=== PATIENT | male | born 1960 ===

== ENCOUNTER 2017-09-20 17:52 | Inpatient (IN) | payer BC ==
[2017-09-20 17:52] VITALS: BMI 25.0
[2017-09-20 18:51] LABS: BASO % 0.4 % (0.0-2.0); EOS # 0.1 K/uL (0.0-0.7); EOS % 0.4 % (0.0-4.0); HEMATOCRIT 35.3 % (35.0-51.0); LYMPH # 1.6 K/uL (1.0-4.3); LYMPH % 12.1 % (20.0-40.0); MEAN CELL VOLUME 88.3 fL (80.0-94.0); MEAN CORPUSCULAR HEMOGLOBIN 29.7 pg (27.0-31.0); MEAN CORPUSCULAR HGB CONC 33.6 g/dL (33.0-37.0); MEAN PLATELET VOLUME 8.1 fL (7.2-11.7); MONO % 7.9 % (0.0-10.0); RED CELL DISTRIBUTION WIDTH 13.3 % (11.5-14.5); WHITE BLOOD COUNT 13.2 K/uL (4.8-10.8)
[2017-09-20 19:00] LABS: INR 1.2
[2017-09-20 19:22] LABS: ALKALINE PHOSPHATASE 189 U/L (38-126); ALT/SGPT 32 U/L (21-72); AST/SGOT 38 U/L (17-59); BILIRUBIN,TOTAL 0.7 mg/dL (0.2-1.3); BLOOD UREA NITROGEN 14 mg/dL (9-20); CALCIUM 8.7 mg/dl (8.6-10.4); CARBON DIOXIDE 32 mmol/L (22-30); CHLORIDE 97 mmol/L (98-107); GFR AFRICAN-AMERICAN > 60; GLUCOSE,RANDOM 110 mg/dL (75-110); POTASSIUM 3.8 mmol/L (3.6-5.2); SODIUM 137 mmol/L (132-148); TOTAL PROTEIN 7.2 g/dL (6.3-8.3)
[2017-09-20 19:38] LABS: FREE T4 1.49 ng/dL (0.78-2.19)
[2017-09-20] MEDS ORDERED: Lactated Ringer's 1,000 ML IVB STA (19:38)
[2017-09-20 19:59] LABS: RBC URINE 3 /hpf (0-3); URINE BACTERIA RARE (<OCC); URINE BILIRUBIN NEGATIVE (NEGATIVE); URINE BLOOD NEGATIVE (NEGATIVE); URINE COLOR Yellow (YELLOW); URINE GLUCOSE (UA) NORMAL (Normal); URINE HYALINE CAST 0-2 /lpf (0-2); URINE KETONE TRACE mg/dL (NEGATIVE); URINE LEUKOCYTE ESTERASE NEG Leu/uL (Negative); URINE PROTEIN NEGATIVE (NEGATIVE); URINE UROBILINOGEN NORMAL mg/dL (0.2-1.0); WBC URINE 2 /hpf (0-5)
[2017-09-20 20:37] LABS: THYROID STIMULATING HORMONE 2.09 mIU/L (0.46-4.68)
--- NOTE | 2017-09-20 20:37 | C.PDOC ---
Time Seen by Provider: 09/20/17 18:16 Chief Complaint (Nursing): Medical Clearance History Per: Patient, Family Onset/Duration Of Symptoms: Days (about 1-2 months), Gradual Current Symptoms Are (Timing): Worse Current Symptoms: Generalized weakness. Associated Symptoms Preceding Syncopal Episode: Other (Weight loss) Seizure Or Post-ictal Symptoms: None Possible Causative Factor(s): Decreased PO Intake Fall Associated With With Symptoms: No Severity: Moderate Additional History Per: Prior Records - Symptoms Of CVA Recent Head Trauma: No Past Medical History Reviewed: Historical Data, Nursing Documentation, Vital Signs Vital Signs: Last Vital Signs Temp 97.8 F 09/20/17 19:13 Pulse 116 H 09/20/17 19:43 Resp 24 09/20/17 19:43 BP 120/92 H 09/20/17 19:43 Pulse Ox 100 09/20/17 19:43 - Medical History PMH: Hypercholesterolemia (DENIES), Hypothyroidism Surgical History: No Surg Hx Family History: States: Unknown Family Hx - Social History Hx Tobacco Use: No Hx Alcohol Use: No Hx Substance Use: No - Immunization History Hx Tetanus Toxoid Vaccination: No Hx Influenza Vaccination: No Hx Pneumococcal Vaccination: No Review Of Systems Except As Marked, All Systems Reviewed And Found Negative. Constitutional: Positive for: Weakness, Malaise, Weight loss. Negative for: Fever Cardiovascular: Negative for: Chest Pain Respiratory: Positive for: SOB with Excertion. Negative for: Cough, Hemoptysis Gastrointestinal: Negative for: Vomiting, Abdominal Pain, Diarrhea Genitourinary: Negative for: Dysuria Musculoskeletal: Positive for: Back Pain (right upper). Negative for: Neck Pain , Leg Pain Skin: Negative for: Rash Neurological: Negative for: Weakness, Numbness, Seizures Physical Exam - Physical Exam Appears: Chronically Ill Skin: Normal Color, Warm, Dry, No Rash Head: Atraumatic, Normacephalic Eye(s): bilateral: Normal Inspection, PERRL, EOMI Oral Mucosa: Dry Neck: Normal ROM, Supple Cardiovascular: Rhythm Regular Respiratory: Decreased Breath Sounds (on right side), No Accessory Muscle Use Gastrointestinal/Abdominal: Soft, No Tenderness Back: No CVA Tenderness Extremity: Normal ROM, No Pedal Edema, No Calf Tenderness Neurological/Psych: Oriented x3, Normal Motor, Normal Sensation ED Course And Treatment - Laboratory Results Result Diagrams: 09/20/17 18:45 09/20/17 18:45 ECG: Interpreted By Me, Viewed By Me ECG Rhythm: Sinus Tachycardia, Nonspecific Changes Rate From EC O2 Sat by Pulse Oximetry: 100 Pulse Ox Interpretation: Normal - Radiology CXR: Interpreted by Me, Viewed By Me CXR Interpretation: Yes: Other (Large right pleural effusion) Progress - Interventions Interventions:: Observation, Intravenous fluid, Oxygen - Data Reviewed Data Reviewed: Lab, Diagnostic imaging, EKG, Old records - Continuity of Care Discussed patient case with:: Patient, Family-HIPPA compliant, ED Nurse, Covering for PMD - Patient Plan Patient Plan: Admission Disposition Discussed With : Jonathan Painting Comment: He accepted pt on hospitalist service. He will f/up CT scan results. Doctor Will See Patient In The: Hospital Counseled Patient/Family Regarding: Studies Performed, Diagnosis - Disposition Disposition: HOSPITALIZED Disposition Time: 20:40 Condition: FAIR Instructions: Weakness (ED) - Clinical Impression Clinical Impression: Pleural effusion on right, Generalized weakness
--- NOTE | 2017-09-20 22:10 | CT ---
EXAM: CT Chest Without Intravenous Contrast CLINICAL HISTORY: 57 years old, male; Abnormal findings; Abnormal radiologic exam of lung or chest; Additional info: Large right pleural effusion on cxr TECHNIQUE: Axial computed tomography images of the chest without intravenous contrast. All CT scans at this facility use one or more dose reduction techniques, viz.: automated exposure control; ma/kV adjustment per patient size (including targeted exams where dose is matched to indication; i.e. head); or iterative reconstruction technique. Coronal and sagittal reformatted images were created and reviewed. COMPARISON: No relevant prior studies available. FINDINGS: Lungs/pleura: Severe right pleural effusion with associated atelectasis/lung collapse. Evidence of underlying large heterogeneous mass involving the medial right lung field and mediastinum, measured at approximately 10 x 10 x 15 cm. Heart: Significant mediastinal shift to the left. Mild pericardial effusion. No cardiomegaly. Bones: Multiple lytic foci in the vertebral bodies concerning for metastatic disease. Vasculature: Atherosclerosis. No thoracic aortic aneurysm. Nonobstructing bilateral intrarenal calculi. IMPRESSION: Study limited without contrast. Severe right pleural effusion with associated atelectasis/lung collapse. Evidence of underlying large heterogeneous mass involving the medial right lung field and mediastinum, measured at approximately 10 x 10 x 15 cm. Significant mediastinal shift to the left. Mild pericardial effusion. Multiple lytic foci in the vertebral bodies concerning for metastatic disease.
--- NOTE | 2017-09-20 22:31 | CP.PCM.HP ---
<LatonyateraAlyce wilsonGabrielle - Last Filed: 09/20/17 22:52> History of Present Illness - History of Present Illness History of Present Illness: CC: generalized weakness, sob, weight loss HPI: Patient is a 57 year old male with a past medical history of hypothyroidism , who presents to the ED with generalized weakness, shortness of breath, right upper extremity pain/numbness, and weight loss. Patient's , Rea, is at bedside contributing to the history. Patient reports having generalized weakness and right upper extremity pain/numbness for approximately 2 months. Patient saw an orthopedist who took an xray which did not show any acute issues. Patient states the orthopedist wanted the patient to get an MRI, but the patient did not get one yet. Patient and reports the patient has lost about 20lbs in a month and a half, and has had decreased appetite, "seeing food makes me nauseas". The patient states he has been feeling increasingly short of breath for the last week, which prompted him to come into the ED. The patient states the shortness of breath increased with exertion and occasionally with laying flat. Patient only uses one pillow. Patient currently denies having chest pain, abdominal pain, nausea, fevers, leg pain/swelling and headaches. PMD: Dr. Jaramillo PMHx: Hypothyroidism SurgHx: colonscopy (11/30; resected polyps; as per and patient- colonscopy was normal) FamHx: Father- prostate cancer, HTN; Mother- HTN, DM Allergies: NKDA Medications: Levothyroxine 25mcg PO daily Present on Admission - Present on Admission Any Indicators Present on Admission: No Review of Systems - Constitutional Constitutional: Fatigue, Lethargy, Weight Loss (<20lbs), Weakness. absent: Chills, Fever, Headache, Increased Appetite - EENT Eyes: absent: Change in Vision Ears: absent: Dizziness - Cardiovascular Cardiovascular: Chest Pain (intermittent right chest pain when laying on right side), Dyspnea, Dyspnea on Exertion, Rapid Heart Rate. absent: Lightheadedness - Respiratory Respiratory: Dyspnea, Dyspnea on Exertion. absent: Cough, Hemoptysis, Pain on Inspiration, Excessive Mucous Production - Gastrointestinal Gastrointestinal: Nausea. absent: Abdominal Pain, Constipation, Diarrhea, Hematemesis, Melena, Vomiting - Genitourinary Genitourinary: absent: Dysuria, Urinary Frequency (decreased due to less intake) - Musculoskeletal Musculoskeletal: Back Pain (right shoulder, related to right arm pain), Muscle Weakness (right UE), Numbness (right shoulder) - Integumentary Integumentary: absent: Lesions, Rash - Neurological Neurological: Numbness (right shoulder), Weakness. absent: Abnormal Gait, Dizziness, Headaches - Endocrine Endocrine: Fatigue - Hematologic/Lymphatic Hematologic: absent: Easy Bruising Past Patient History - Infectious Disease Hx of Infectious Diseases: None - Past Medical History & Family History Past Medical History?: Yes - Past Social History Smoking Status: Never Smoked - CARDIAC Hx Hypercholesterolemia: Yes (DENIES) - PULMONARY Hx Respiratory Disorders: No - NEUROLOGICAL Hx Neurological Disorder: No - HEENT Hx HEENT Problems: No - RENAL Hx Chronic Kidney Disease: No - ENDOCRINE/METABOLIC Hx Hypothyroidism: Yes - HEMATOLOGICAL/ONCOLOGICAL Hx Blood Disorders: No - INTEGUMENTARY Hx Dermatological Problems: No - MUSCULOSKELETAL/RHEUMATOLOGICAL Hx Musculoskeletal Disorders: No Hx Falls: No - GASTROINTESTINAL Hx Gastrointestinal Disorders: No - GENITOURINARY/GYNECOLOGICAL Hx Genitourinary Disorders: No - PSYCHIATRIC Hx Substance Use: No - SURGICAL HISTORY Hx Surgeries: No - ANESTHESIA Hx Anesthesia: Yes Hx Anesthesia Reactions: No Meds Allergies/Adverse Reactions: Allergies Allergy/AdvReac Type Severity Reaction Status Date / Time No Known Allergies Allergy Verified 11/15/16 07:42 Physical Exam - Constitutional Appears: No Acute Distress - Head Exam Head Exam: ATRAUMATIC, NORMAL INSPECTION - Eye Exam Eye Exam: EOMI, Normal appearance, PERRL. absent: Scleral icterus - ENT Exam ENT Exam: Mucous Membranes Moist - Respiratory Exam Respiratory Exam: Decreased Breath Sounds (R>L), NORMAL BREATHING PATTERN. absent: Clear to Auscultation Bilateral, Rhonchi, Respiratory Distress - Cardiovascular Exam Cardiovascular Exam: Tachycardia, REGULAR RHYTHM, +S1, +S2 - GI/Abdominal Exam GI & Abdominal Exam: Normal Bowel Sounds, Soft. absent: Distended, Firm, Guarding, Tenderness - Extremities Exam Extremities exam: Positive for: normal inspection, pedal pulses present. Negative for: pedal edema, tenderness - Back Exam Back exam: NORMAL INSPECTION - Neurological Exam Neurological exam: Alert, Oriented x3 - Psychiatric Exam Psychiatric exam: Normal Affect, Normal Mood - Skin Skin Exam: Dry, Intact, Normal Color, Warm Results - Vital Signs Recent Vital Signs: Last Vital Signs Temp 98.5 F 09/20/17 22:00 Pulse 109 H 09/20/17 22:00 Resp 20 09/20/17 22:00 BP 127/89 09/20/17 22:00 Pulse Ox 100 09/20/17 22:00 - Labs Result Diagrams: 09/20/17 18:45 09/20/17 18:45 Labs: Laboratory Results - last 24 hr 09/20/17 09/20/17 09/20/17 18:18 18:45 18:45 WBC 13.2 H RBC 4.00 L Hgb 11.9 L Hct 35.3 MCV 88.3 MCH 29.7 MCHC 33.6 RDW 13.3 Plt Count 655 H MPV 8.1 Neut % (Auto) 79.2 H Lymph % (Auto) 12.1 L [place] % (Auto) 7.9 Eos % (Auto) 0.4 Baso % (Auto) 0.4 Neut # 10.4 H Lymph # 1.6 [place] # 1.0 H Eos # 0.1 Baso # 0.0 PT 14.0 H INR 1.2 APTT 33 Sodium Potassium Chloride Carbon Dioxide Anion Gap BUN Creatinine Est GFR ( Amer) Est GFR (Non-Af Amer) POC Glucose (mg/dL) 106 Random Glucose Calcium Magnesium Total Bilirubin AST ALT Alkaline Phosphatase Troponin I NT-Pro-B Natriuret Pep Total Protein Albumin Globulin Albumin/Globulin Ratio Free T4 TSH 3rd Generation Urine Color Urine Clarity Urine pH Ur Specific [place] Urine Protein Urine Glucose (UA) Urine Ketones Urine Blood Urine Nitrate Urine Bilirubin Urine Urobilinogen Ur Leukocyte Esterase Urine WBC (Auto) Urine RBC (Auto) Urine Bacteria Hyaline Casts 09/20/17 09/20/17 09/20/17 18:45 18:45 19:41 WBC RBC Hgb Hct MCV MCH MCHC RDW Plt Count MPV Neut % (Auto) Lymph % (Auto) [place] % (Auto) Eos % (Auto) Baso % (Auto) Neut # Lymph # [place] # Eos # Baso # PT INR APTT Sodium 137 Potassium 3.8 Chloride 97 L Carbon Dioxide 32 H Anion Gap 12 BUN 14 Creatinine 0.8 Est GFR ( Amer) > 60 Est GFR (Non-Af Amer) > 60 POC Glucose (mg/dL) Random Glucose 110 Calcium 8.7 Magnesium 2.0 Total Bilirubin 0.7 AST 38 ALT 32 Alkaline Phosphatase 189 H Troponin I < 0.0120 NT-Pro-B Natriuret Pep 79.9 Total Protein 7.2 Albumin 3.6 Globulin 3.6 Albumin/Globulin Ratio 1.0 Free T4 1.49 TSH 3rd Generation 2.09 Urine Color Yellow Urine Clarity Clear Urine pH 6.0 Ur Specific [place] 1.015 Urine Protein Negative Urine Glucose (UA) Normal Urine Ketones Trace Urine Blood Negative Urine Nitrate Negative Urine Bilirubin Negative Urine Urobilinogen Normal Ur Leukocyte Esterase Neg Urine WBC (Auto) 2 Urine RBC (Auto) 3 Urine Bacteria Rare Hyaline Casts 0-2 Assessment & Plan (1) Pleural effusion on right Assessment and Plan: * Chest Xray (09/20): large right sided pleural effusion; pending official read * Chest CT (09/20): severe right pleural effusion with associated ateletasis/ lung collapse; evidence of underlying large heterogenous mass involving medial right lung field and mediastinum ([id number]); significant mediastinal shift to the left; mild pericardial effusion; multiple lytic foci in vertebral bodies concerning for metastatic disease. * O2 prn via nasal cannula * IR consulted for pleural fluid analysis, help appreciated. Status: Acute (2) Lung mass Assessment and Plan: * Chest CT (09/20): severe right pleural effusion with associated ateletasis/ lung collapse; evidence of underlying large heterogenous mass involving medial right lung field and mediastinum ([id number]); significant mediastinal shift to the left; mild pericardial effusion; multiple lytic foci in vertebral bodies concerning for metastatic disease. * Heme/Onc consulted, Dr. Sultana, help appreciated. Status: Acute (3) Right upper limb pain Assessment and Plan: Patient complains of right upper extremity and right back pain and numbness * Likely secondary to pleural effusion and right lung mass * Right Upper Extremity Doppler: f/u results Status: Acute (4) Hypothyroidism Assessment and Plan: Continue home medication: Levothyroxine 25mcg PO daily. * TSH: 2.09 * T4: /49 Status: Acute (5) Prophylactic measure Assessment and Plan: Heparin 5,000 SC Q8h Pepcid 20mg PO BID Regular Diet O2 via nasal cannula prn Status: Acute <Jonathan Painting - Last Filed: 09/21/17 06:22> Results - Vital Signs Recent Vital Signs: Last Vital Signs Temp 99.2 F 09/21/17 00:00 Pulse 106 H 09/21/17 00:00 Resp 20 09/21/17 00:00 BP 113/82 09/21/17 00:00 Pulse Ox 100 09/21/17 00:00 - Labs Result Diagrams: 09/20/17 18:45 09/20/17 18:45 Labs: Laboratory Results - last 24 hr 09/20/17 09/20/17 09/20/17 18:18 18:45 18:45 WBC 13.2 H RBC 4.00 L Hgb 11.9 L Hct 35.3 MCV 88.3 MCH 29.7 MCHC 33.6 RDW 13.3 Plt Count 655 H MPV 8.1 Neut % (Auto) 79.2 H Lymph % (Auto) 12.1 L [place] % (Auto) 7.9 Eos % (Auto) 0.4 Baso % (Auto) 0.4 Neut # 10.4 H Lymph # 1.6 [place] # 1.0 H Eos # 0.1 Baso # 0.0 PT 14.0 H INR 1.2 APTT 33 Sodium Potassium Chloride Carbon Dioxide Anion Gap BUN Creatinine Est GFR ( Amer) Est GFR (Non-Af Amer) POC Glucose (mg/dL) 106 Random Glucose Calcium Magnesium Total Bilirubin AST ALT Alkaline Phosphatase Troponin I NT-Pro-B Natriuret Pep Total Protein Albumin Globulin Albumin/Globulin Ratio Free T4 TSH 3rd Generation Urine Color Urine Clarity Urine pH Ur Specific [place] Urine Protein Urine Glucose (UA) Urine Ketones Urine Blood Urine Nitrate Urine Bilirubin Urine Urobilinogen Ur Leukocyte Esterase Urine WBC (Auto) Urine RBC (Auto) Urine Bacteria Hyaline Casts 09/20/17 09/20/17 09/20/17 18:45 18:45 19:41 WBC RBC Hgb Hct MCV MCH MCHC RDW Plt Count MPV Neut % (Auto) Lymph % (Auto) [place] % (Auto) Eos % (Auto) Baso % (Auto) Neut # Lymph # [place] # Eos # Baso # PT INR APTT Sodium 137 Potassium 3.8 Chloride 97 L Carbon Dioxide 32 H Anion Gap 12 BUN 14 Creatinine 0.8 Est GFR ( Amer) > 60 Est GFR (Non-Af Amer) > 60 POC Glucose (mg/dL) Random Glucose 110 Calcium 8.7 Magnesium 2.0 Total Bilirubin 0.7 AST 38 ALT 32 Alkaline Phosphatase 189 H Troponin I < 0.0120 NT-Pro-B Natriuret Pep 79.9 Total Protein 7.2 Albumin 3.6 Globulin 3.6 Albumin/Globulin Ratio 1.0 Free T4 1.49 TSH 3rd Generation 2.09 Urine Color Yellow Urine Clarity Clear Urine pH 6.0 Ur Specific [place] 1.015 Urine Protein Negative Urine Glucose (UA) Normal Urine Ketones Trace Urine Blood Negative Urine Nitrate Negative Urine Bilirubin Negative Urine Urobilinogen Normal Ur Leukocyte Esterase Neg Urine WBC (Auto) 2 Urine RBC (Auto) 3 Urine Bacteria Rare Hyaline Casts 0-2 Assessment & Plan - Date & Time Date: 09/21/17 (I have seen and examined the patient. I agree with the findings and plan as documented by Dr. Baez. Patient with large pleural effusion and lung mass as noted on CT chest. Consult to pulm and heme/onc. Saturating well on NC. Also with history of hypothyroidism. Continue home med. Monitor for acute changes.) Time: 06:20 Attending/Attestation - Attestation I have personally seen and examined this patient.: Yes I have fully participated in the care of the patient.: Yes I have reviewed all pertinent clinical information: Yes
[2017-09-21] MEDS: Levothyroxine 25 MCG TAB PO SCH (05:37)
[2017-09-21 06:55] LABS: BASO # 0.1 K/uL (0.0-0.2); BASO % 0.6 % (0.0-2.0); EOS # 0.2 K/uL (0.0-0.7); EOS % 1.5 % (0.0-4.0); HEMATOCRIT 30.7 % (35.0-51.0); LYMPH # 1.6 K/uL (1.0-4.3); LYMPH % 12.7 % (20.0-40.0); MEAN CELL VOLUME 88.6 fL (80.0-94.0); MEAN CORPUSCULAR HEMOGLOBIN 30.3 pg (27.0-31.0); MEAN CORPUSCULAR HGB CONC 34.2 g/dL (33.0-37.0); MEAN PLATELET VOLUME 8.6 fL (7.2-11.7); MONO # 1.1 K/uL (0.0-0.8); MONO % 9.2 % (0.0-10.0); RED CELL DISTRIBUTION WIDTH 13.2 % (11.5-14.5); WHITE BLOOD COUNT 12.5 K/uL (4.8-10.8)
[2017-09-21 07:09] LABS: ALB/GLOB RATIO 0.7 (1.0-2.1); ALKALINE PHOSPHATASE 155 U/L (38-126); ALT/SGPT 40 U/L (21-72); AST/SGOT 39 U/L (17-59); BILIRUBIN,TOTAL 0.5 mg/dL (0.2-1.3); BLOOD UREA NITROGEN 12 mg/dL (9-20); CARBON DIOXIDE 33 mmol/L (22-30); CHLORIDE 100 mmol/L (98-107); GFR AFRICAN-AMERICAN > 60; GLUCOSE,RANDOM 135 mg/dL (75-110); POTASSIUM 3.7 mmol/L (3.6-5.2); SODIUM 136 mmol/L (132-148); TOTAL PROTEIN 6.9 g/dL (6.3-8.3)
--- NOTE | 2017-09-21 07:47 | RAD ---
PROCEDURE: CHEST RADIOGRAPH, 1 VIEW HISTORY: Lung sounds demininshed on right COMPARISON: Comparison is made to 10/29/2016 FINDINGS: LUNGS: Interval appearance of large homogeneous opacity at the right chest associated with collapse of the right middle lobe and right lower lobe as well as partial collapse of the right upper lobe likely represent large pleural effusion. PLEURA: Large right pleural effusion associated with partial right lung collapse and right to left mediastinal structures shift. CARDIOVASCULAR: Normal. OSSEOUS STRUCTURES: No significant abnormalities. VISUALIZED UPPER ABDOMEN: Normal. OTHER FINDINGS: None. IMPRESSION: Suspicious for large right sided pleural effusion associated with partial collapse of the right lung and mediastinal shift to the left. If indicated further assessment by CT of the chest is suggested.
--- NOTE | 2017-09-21 10:43 | CP.PCM.CON ---
History of Present Illness - History of Present Illness History of Present Illness: reason for consultatation: large pleural effusion 57-year-old male presented to emergency room yesterday with generalized weaknes and shortness of breath on exertion. Also complaining of right upper extremity pain and numbness. Patient states that he has lost 20 pounds in one month. CAT scan of the ches consistent with large right pleural effusion and lung mass. PMHx: Hypothyroidism SurgHx: colonscopy (11/30; resected polyps; as per and patient- colonscopy was normal) FamHx: Father- prostate cancer, HTN; Mother- HTN, DM Allergies: NKDA Medications: Levothyroxine 25mcg PO daily Review of Systems - Review of Systems All systems: reviewed and no additional remarkable complaints except ( generalized weakness and shortness of breath) Past Patient History - Infectious Disease Hx of Infectious Diseases: None - Past Medical History & Family History Past Medical History?: Yes - Past Social History Smoking Status: Never Smoked - CARDIAC Hx Hypercholesterolemia: Yes (DENIES) - PULMONARY Hx Respiratory Disorders: No - NEUROLOGICAL Hx Neurological Disorder: No - HEENT Hx HEENT Problems: No - RENAL Hx Chronic Kidney Disease: No - ENDOCRINE/METABOLIC Hx Hypothyroidism: Yes - HEMATOLOGICAL/ONCOLOGICAL Hx Blood Disorders: No - INTEGUMENTARY Hx Dermatological Problems: No - MUSCULOSKELETAL/RHEUMATOLOGICAL Hx Musculoskeletal Disorders: No Hx Falls: No - GASTROINTESTINAL Hx Gastrointestinal Disorders: No - GENITOURINARY/GYNECOLOGICAL Hx Genitourinary Disorders: No - PSYCHIATRIC Hx Substance Use: No - SURGICAL HISTORY Hx Surgeries: No - ANESTHESIA Hx Anesthesia: Yes Hx Anesthesia Reactions: No Meds Allergies/Adverse Reactions: Allergies Allergy/AdvReac Type Severity Reaction Status Date / Time No Known Allergies Allergy Verified 11/15/16 07:42 - Medications Medications: Current Medications Famotidine (Pepcid) 20 mg PO BID [facility] Heparin Sodium (Porcine) (Heparin) 5,000 units SC Q8 [facility] Last Admin: 09/21/17 05:38 Dose: 5,000 units Azithromycin 500 mg/ Sodium (Chloride) 250 mls @ 250 mls/hr IVPB DAILY [facility] Ceftriaxone Sodium 1 gm/ (Sodium Chloride) 100 mls @ 100 mls/hr IVPB DAILY [facility] Levothyroxine Sodium (Synthroid) 25 mcg PO DAILY@0630 [facility] Last Admin: 09/21/17 05:37 Dose: 25 mcg Ondansetron HCl (Zofran Inj) 4 mg IVP Q6 PRN PRN Reason: Nausea/Vomiting Pneumococcal Polyvalent Vaccine (Pneumovax 23 Vaccine) 0.5 ml IM .ONCE ONE Stop: 09/23/17 10:01 Physical Exam - Head Exam Head Exam: ATRAUMATIC, NORMOCEPHALIC Results - Vital Signs Recent Vital Signs: Last Vital Signs Temp 98.5 F 09/21/17 08:00 Pulse 108 H 09/21/17 08:00 Resp 18 09/21/17 08:00 BP 119/86 09/21/17 08:00 Pulse Ox 99 09/21/17 08:00 - Labs Result Diagrams: 09/21/17 06:44 09/21/17 06:44 Labs: Laboratory Results - last 24 hr 09/20/17 09/20/17 09/20/17 18:18 18:45 18:45 WBC 13.2 H RBC 4.00 L Hgb 11.9 L Hct 35.3 MCV 88.3 MCH 29.7 MCHC 33.6 RDW 13.3 Plt Count 655 H MPV 8.1 Neut % (Auto) 79.2 H Lymph % (Auto) 12.1 L [place] % (Auto) 7.9 Eos % (Auto) 0.4 Baso % (Auto) 0.4 Neut # 10.4 H Lymph # 1.6 [place] # 1.0 H Eos # 0.1 Baso # 0.0 PT 14.0 H INR 1.2 APTT 33 Sodium Potassium Chloride Carbon Dioxide Anion Gap BUN Creatinine Est GFR ( Amer) Est GFR (Non-Af Amer) POC Glucose (mg/dL) 106 Random Glucose Calcium Magnesium Total Bilirubin AST ALT Alkaline Phosphatase Troponin I NT-Pro-B Natriuret Pep Total Protein Albumin Globulin Albumin/Globulin Ratio Free T4 TSH 3rd Generation Urine Color Urine Clarity Urine pH Ur Specific [place] Urine Protein Urine Glucose (UA) Urine Ketones Urine Blood Urine Nitrate Urine Bilirubin Urine Urobilinogen Ur Leukocyte Esterase Urine WBC (Auto) Urine RBC (Auto) Urine Bacteria Hyaline Casts 09/20/17 09/20/17 09/20/17 18:45 18:45 19:41 WBC RBC Hgb Hct MCV MCH MCHC RDW Plt Count MPV Neut % (Auto) Lymph % (Auto) [place] % (Auto) Eos % (Auto) Baso % (Auto) Neut # Lymph # [place] # Eos # Baso # PT INR APTT Sodium 137 Potassium 3.8 Chloride 97 L Carbon Dioxide 32 H Anion Gap 12 BUN 14 Creatinine 0.8 Est GFR ( Amer) > 60 Est GFR (Non-Af Amer) > 60 POC Glucose (mg/dL) Random Glucose 110 Calcium 8.7 Magnesium 2.0 Total Bilirubin 0.7 AST 38 ALT 32 Alkaline Phosphatase 189 H Troponin I < 0.0120 NT-Pro-B Natriuret Pep 79.9 Total Protein 7.2 Albumin 3.6 Globulin 3.6 Albumin/Globulin Ratio 1.0 Free T4 1.49 TSH 3rd Generation 2.09 Urine Color Yellow Urine Clarity Clear Urine pH 6.0 Ur Specific [place] 1.015 Urine Protein Negative Urine Glucose (UA) Normal Urine Ketones Trace Urine Blood Negative Urine Nitrate Negative Urine Bilirubin Negative Urine Urobilinogen Normal Ur Leukocyte Esterase Neg Urine WBC (Auto) 2 Urine RBC (Auto) 3 Urine Bacteria Rare Hyaline Casts 0-2 09/21/17 09/21/17 06:44 06:44 WBC 12.5 H RBC 3.46 L Hgb 10.5 L Hct 30.7 L MCV 88.6 MCH 30.3 MCHC 34.2 RDW 13.2 Plt Count 561 H MPV 8.6 Neut % (Auto) 76.0 H Lymph % (Auto) 12.7 L [place] % (Auto) 9.2 Eos % (Auto) 1.5 Baso % (Auto) 0.6 Neut # 9.5 H Lymph # 1.6 [place] # 1.1 H Eos # 0.2 Baso # 0.1 PT INR APTT Sodium 136 Potassium 3.7 Chloride 100 Carbon Dioxide 33 H Anion Gap 7 L BUN 12 Creatinine 0.7 L Est GFR ( Amer) > 60 Est GFR (Non-Af Amer) > 60 POC Glucose (mg/dL) Random Glucose 135 H Calcium 8.0 L Magnesium Total Bilirubin 0.5 AST 39 ALT 40 Alkaline Phosphatase 155 H Troponin I NT-Pro-B Natriuret Pep Total Protein 6.9 Albumin 2.9 L Globulin 4.1 H Albumin/Globulin Ratio 0.7 L Free T4 TSH 3rd Generation Urine Color Urine Clarity Urine pH Ur Specific [place] Urine Protein Urine Glucose (UA) Urine Ketones Urine Blood Urine Nitrate Urine Bilirubin Urine Urobilinogen Ur Leukocyte Esterase Urine WBC (Auto) Urine RBC (Auto) Urine Bacteria Hyaline Casts Assessment & Plan (1) Lung mass Status: Acute Comment: large right pleural effusion with lung mass rule out malignancy. Patient reluctant to have thoracentesis today as he denies shortness of breath at rest. (2) Pleural effusion on right Status: Acute
[2017-09-21] MEDS: Azithromycin 500 MG in Sodium Chloride 0.9% 250 ML IVPB SCH (11:06)
--- NOTE | 2017-09-21 13:54 | CP.PCM.PN ---
Subjective - Date & Time of Evaluation Date of Evaluation: 09/21/17 Time of Evaluation: 08:50 - Subjective Subjective: PGY3 Medicine Note - Dr. Elmore's service: Patient seen and examined at bedside this AM. Patient reports difficulty breathing with walking. Patient reports feeling weak for the past few days. Patient reports a few weeks of right arm intermittent numbness and tingling. Patient denies having a recent chest X-ray or recent lung problems. Patient denies fever, chills, chest pain, cough. Objective - Vital Signs/Intake and Output Vital Signs (last 24 hours): Temp Pulse Resp BP Pulse Ox 98.5 F 108 H 18 119/86 99 09/21/17 08:00 09/21/17 08:00 09/21/17 08:00 09/21/17 08:00 09/21/17 08:00 Intake and Output: 09/21/17 09/21/17 06:59 18:59 Intake Total 220 Balance 220 - Medications Medications: Current Medications Famotidine (Pepcid) 20 mg PO BID [facility] Last Admin: 09/21/17 10:58 Dose: 20 mg Heparin Sodium (Porcine) (Heparin) 5,000 units SC Q8 [facility] Last Admin: 09/21/17 13:48 Dose: 5,000 units Azithromycin 500 mg/ Sodium (Chloride) 250 mls @ 250 mls/hr IVPB DAILY [facility] Last Admin: 09/21/17 11:06 Dose: 250 mls/hr Ceftriaxone Sodium 1 gm/ (Sodium Chloride) 100 mls @ 100 mls/hr IVPB DAILY [facility] Last Admin: 09/21/17 10:58 Dose: 100 mls/hr Levothyroxine Sodium (Synthroid) 25 mcg PO DAILY@0630 [facility] Last Admin: 09/21/17 05:37 Dose: 25 mcg Ondansetron HCl (Zofran Inj) 4 mg IVP Q6 PRN PRN Reason: Nausea/Vomiting Pneumococcal Polyvalent Vaccine (Pneumovax 23 Vaccine) 0.5 ml IM .ONCE ONE Stop: 09/23/17 10:01 - Labs Labs: 09/21/17 06:44 09/21/17 06:44 PT 14.0 SECONDS (9.7-12.2) H 09/20/17 18:45 INR 1.2 09/20/17 18:45 APTT 33 SECONDS (21-34) 09/20/17 18:45 - Constitutional Appears: Non-toxic, No Acute Distress - Head Exam Head Exam: NORMAL INSPECTION - Eye Exam Eye Exam: EOMI - ENT Exam ENT Exam: Mucous Membranes Moist - Respiratory Exam Respiratory Exam: Decreased Breath Sounds (left sided), Rales (right sided). absent: Accessory Muscle Use, Respiratory Distress, Stridor - Cardiovascular Exam Cardiovascular Exam: REGULAR RHYTHM, +S1, +S2. absent: Gallop, Rubs, Murmur - GI/Abdominal Exam GI & Abdominal Exam: Soft, Normal Bowel Sounds. absent: Tenderness - Extremities Exam Extremities Exam: absent: Pedal Edema - Neurological Exam Neurological Exam: Alert, Awake, Oriented x3 Neuro motor strength exam: Left Upper Extremity: 5, Right Upper Extremity: 5 - Psychiatric Exam Psychiatric exam: Normal Affect, Normal Mood - Skin Skin Exam: Normal Color, Warm Assessment and Plan - Assessment and Plan (Free Text) Assessment: Pleural effusion on right Assessment and Plan: * Chest Xray (09/20): large right sided pleural effusion; pending official read * Chest CT (09/20): severe right pleural effusion with associated ateletasis/ lung collapse; evidence of underlying large heterogenous mass involving medial right lung field and mediastinum ([id number]); significant mediastinal shift to the left; mild pericardial effusion; multiple lytic foci in vertebral bodies concerning for metastatic disease. * O2 prn via nasal cannula * IR consulted for pleural fluid analysis, help appreciated. * Pulm consulted - Dr. Caicedo - help appreciated * Dr. Caicedo wanted to go thoracentesis today. Patient was nervous and wanted his to be there when it is done. Patient will have procedure tomorrow * Thoracic surgery consulted - Dr. Alaniz - f/u recs in case patient needs chest tube Status: Acute Lung mass Assessment and Plan: * Chest CT (09/20): severe right pleural effusion with associated ateletasis/ lung collapse; evidence of underlying large heterogenous mass involving medial right lung field and mediastinum ([id number]); significant mediastinal shift to the left; mild pericardial effusion; multiple lytic foci in vertebral bodies concerning for metastatic disease. * Heme/Onc consulted, Dr. Sultana, help appreciated. * Pulm consulted - Dr. Caicedo - help appreciated Status: Acute Right upper limb pain Assessment and Plan: Patient complains of right upper extremity and right back pain and numbness * Likely secondary to pleural effusion and right lung mass * Right Upper Extremity Doppler: f/u results * Possibly secondary to nerve infringement, will get MRI once pleural effusion is resolved Status: Acute Hypothyroidism Assessment and Plan: Continue home medication: Levothyroxine 25mcg PO daily. * TSH: 2.09 * T4: Status: Acute Prophylactic measure Assessment and Plan: Heparin 5,000 SC Q8h Pepcid 20mg PO BID Regular Diet O2 via nasal cannula prn Status: Acute
--- NOTE | 2017-09-21 14:12 | CP.PCM.CON ---
History of Present Illness - History of Present Illness History of Present Illness: Mr. Draper is a 57-year-old man with a past medical history of hypothyroidism, who presented to the ED for a 2 month history of progressive weakness, SOB, and right arm pain/numbness. He has had a 20 lb weight loss, unintentional over the last 6 weeks and states that he has no appetite. An X-ray of the chest showed pleural effusion, and a CT of the chest was concerning for the presence of a right lung mass with lytic lesions in the vertebral bodies consistent with metastatic disease. The patient complained of having burning type of pain in his cervical and thoracic region and right shoulder, arm pain and numbness. There has been some weakness associated with the pain as well over the last several weeks. Review of Systems - Review of Systems All systems: reviewed and no additional remarkable complaints except Past Patient History - Infectious Disease Hx of Infectious Diseases: None - Past Medical History & Family History Past Medical History?: Yes - Past Social History Smoking Status: Never Smoked - CARDIAC Hx Hypercholesterolemia: Yes (DENIES) - PULMONARY Hx Respiratory Disorders: No - NEUROLOGICAL Hx Neurological Disorder: No - HEENT Hx HEENT Problems: No - RENAL Hx Chronic Kidney Disease: No - ENDOCRINE/METABOLIC Hx Hypothyroidism: Yes - HEMATOLOGICAL/ONCOLOGICAL Hx Blood Disorders: No - INTEGUMENTARY Hx Dermatological Problems: No - MUSCULOSKELETAL/RHEUMATOLOGICAL Hx Musculoskeletal Disorders: No Hx Falls: No - GASTROINTESTINAL Hx Gastrointestinal Disorders: No - GENITOURINARY/GYNECOLOGICAL Hx Genitourinary Disorders: No - PSYCHIATRIC Hx Substance Use: No - SURGICAL HISTORY Hx Surgeries: No - ANESTHESIA Hx Anesthesia: Yes Hx Anesthesia Reactions: No Meds Allergies/Adverse Reactions: Allergies Allergy/AdvReac Type Severity Reaction Status Date / Time No Known Allergies Allergy Verified 11/15/16 07:42 - Medications Medications: Current Medications Famotidine (Pepcid) 20 mg PO BID [facility] Last Admin: 09/21/17 10:58 Dose: 20 mg Heparin Sodium (Porcine) (Heparin) 5,000 units SC Q8 [facility] Last Admin: 09/21/17 13:48 Dose: 5,000 units Azithromycin 500 mg/ Sodium (Chloride) 250 mls @ 250 mls/hr IVPB DAILY [facility] Last Admin: 09/21/17 11:06 Dose: 250 mls/hr Ceftriaxone Sodium 1 gm/ (Sodium Chloride) 100 mls @ 100 mls/hr IVPB DAILY [facility] Last Admin: 09/21/17 10:58 Dose: 100 mls/hr Levothyroxine Sodium (Synthroid) 25 mcg PO DAILY@0630 [facility] Last Admin: 09/21/17 05:37 Dose: 25 mcg Ondansetron HCl (Zofran Inj) 4 mg IVP Q6 PRN PRN Reason: Nausea/Vomiting Pneumococcal Polyvalent Vaccine (Pneumovax 23 Vaccine) 0.5 ml IM .ONCE ONE Stop: 09/23/17 10:01 Physical Exam - Constitutional Appears: Cachectic, Chronically Ill - Head Exam Head Exam: ATRAUMATIC, NORMAL INSPECTION, NORMOCEPHALIC - Eye Exam Eye Exam: EOMI, Normal appearance, PERRL - ENT Exam ENT Exam: Mucous Membranes Moist, Normal Exam - Neck Exam Neck exam: Positive for: Normal Inspection - Respiratory Exam Respiratory Exam: Rales, Rhonchi - Cardiovascular Exam Cardiovascular Exam: REGULAR RHYTHM - GI/Abdominal Exam GI & Abdominal Exam: Normal Bowel Sounds, Soft. absent: Tenderness - Rectal Exam Rectal Exam: Deferred - Extremities Exam Extremities exam: Positive for: normal inspection - Back Exam Back exam: NORMAL INSPECTION - Neurological Exam Neurological exam: Alert, CN II-XII Intact, Normal Gait, Oriented x3 Additional comments: Reflexes were diminished slightly on the C5/C6 region on the right side. Sensation was diminished and associated with an electric/burning pain over the C6 dermatome along with the ventral axial line of the upper limb with extension into C8-T1. Results - Vital Signs Recent Vital Signs: Last Vital Signs Temp 98.5 F 09/21/17 08:00 Pulse 108 H 09/21/17 08:00 Resp 18 09/21/17 08:00 BP 119/86 09/21/17 08:00 Pulse Ox 99 09/21/17 08:00 - Labs Result Diagrams: 09/21/17 06:44 09/21/17 06:44 Labs: Laboratory Results - last 24 hr 09/20/17 09/20/17 09/20/17 18:18 18:45 18:45 WBC 13.2 H RBC 4.00 L Hgb 11.9 L Hct 35.3 MCV 88.3 MCH 29.7 MCHC 33.6 RDW 13.3 Plt Count 655 H MPV 8.1 Neut % (Auto) 79.2 H Lymph % (Auto) 12.1 L Blanco % (Auto) 7.9 Eos % (Auto) 0.4 Baso % (Auto) 0.4 Neut # 10.4 H Lymph # 1.6 Blanco # 1.0 H Eos # 0.1 Baso # 0.0 PT 14.0 H INR 1.2 APTT 33 Sodium Potassium Chloride Carbon Dioxide Anion Gap BUN Creatinine Est GFR ( Amer) Est GFR (Non-Af Amer) POC Glucose (mg/dL) 106 Random Glucose Calcium Magnesium Total Bilirubin AST ALT Alkaline Phosphatase Troponin I NT-Pro-B Natriuret Pep Total Protein Albumin Globulin Albumin/Globulin Ratio Free T4 TSH 3rd Generation Urine Color Urine Clarity Urine pH Ur Specific Franklin Urine Protein Urine Glucose (UA) Urine Ketones Urine Blood Urine Nitrate Urine Bilirubin Urine Urobilinogen Ur Leukocyte Esterase Urine WBC (Auto) Urine RBC (Auto) Urine Bacteria Hyaline Casts 09/20/17 09/20/17 09/20/17 18:45 18:45 19:41 WBC RBC Hgb Hct MCV MCH MCHC RDW Plt Count MPV Neut % (Auto) Lymph % (Auto) Blanco % (Auto) Eos % (Auto) Baso % (Auto) Neut # Lymph # Blanco # Eos # Baso # PT INR APTT Sodium 137 Potassium 3.8 Chloride 97 L Carbon Dioxide 32 H Anion Gap 12 BUN 14 Creatinine 0.8 Est GFR ( Amer) > 60 Est GFR (Non-Af Amer) > 60 POC Glucose (mg/dL) Random Glucose 110 Calcium 8.7 Magnesium 2.0 Total Bilirubin 0.7 AST 38 ALT 32 Alkaline Phosphatase 189 H Troponin I < 0.0120 NT-Pro-B Natriuret Pep 79.9 Total Protein 7.2 Albumin 3.6 Globulin 3.6 Albumin/Globulin Ratio 1.0 Free T4 1.49 TSH 3rd Generation 2.09 Urine Color Yellow Urine Clarity Clear Urine pH 6.0 Ur Specific Franklin 1.015 Urine Protein Negative Urine Glucose (UA) Normal Urine Ketones Trace Urine Blood Negative Urine Nitrate Negative Urine Bilirubin Negative Urine Urobilinogen Normal Ur Leukocyte Esterase Neg Urine WBC (Auto) 2 Urine RBC (Auto) 3 Urine Bacteria Rare Hyaline Casts 0-2 09/21/17 09/21/17 06:44 06:44 WBC 12.5 H RBC 3.46 L Hgb 10.5 L Hct 30.7 L MCV 88.6 MCH 30.3 MCHC 34.2 RDW 13.2 Plt Count 561 H MPV 8.6 Neut % (Auto) 76.0 H Lymph % (Auto) 12.7 L Blanco % (Auto) 9.2 Eos % (Auto) 1.5 Baso % (Auto) 0.6 Neut # 9.5 H Lymph # 1.6 Blanco # 1.1 H Eos # 0.2 Baso # 0.1 PT INR APTT Sodium 136 Potassium 3.7 Chloride 100 Carbon Dioxide 33 H Anion Gap 7 L BUN 12 Creatinine 0.7 L Est GFR ( Amer) > 60 Est GFR (Non-Af Amer) > 60 POC Glucose (mg/dL) Random Glucose 135 H Calcium 8.0 L Magnesium Total Bilirubin 0.5 AST 39 ALT 40 Alkaline Phosphatase 155 H Troponin I NT-Pro-B Natriuret Pep Total Protein 6.9 Albumin 2.9 L Globulin 4.1 H Albumin/Globulin Ratio 0.7 L Free T4 TSH 3rd Generation Urine Color Urine Clarity Urine pH Ur Specific Franklin Urine Protein Urine Glucose (UA) Urine Ketones Urine Blood Urine Nitrate Urine Bilirubin Urine Urobilinogen Ur Leukocyte Esterase Urine WBC (Auto) Urine RBC (Auto) Urine Bacteria Hyaline Casts Assessment & Plan (1) Generalized weakness Status: Chronic Priority: Medium (2) Hypothyroidism Status: Acute (3) Lung mass Status: Acute Priority: High (4) Pleural effusion on right Status: Acute Priority: High (5) Right upper limb pain Assessment and Plan: Considering the CT chest findings, the patient may have metastatic disease to the spine and may involve the nerve roots or cord. We will evaluate with CT of the cervical and thoracic spine and also obtain a CT of the head to rule out cerebral mets. Ultimately, he will need an MRI of the brain and spine with and without contrast, but the CT will help us see if there is mass effect/edema that may respond to steroids. I will follow the patient along with the primary team and consultants and assist from a neurological standpoint. Thank you. Status: Acute Priority: High
--- NOTE | 2017-09-21 16:28 | CT ---
PROCEDURE: CT HEAD WITHOUT CONTRAST. HISTORY: Lung ca mets,right arm numbness,r/o brain mets COMPARISON: None available. TECHNIQUE: Axial computed tomography images were obtained through the head/brain without intravenous contrast. Radiation dose: Total exam DLP = 1055.85 mGy-cm. This CT exam was performed using one or more of the following dose reduction techniques: Automated exposure control, adjustment of the mA and/or kV according to patient size, and/or use of iterative reconstruction technique. FINDINGS: HEMORRHAGE: No intracranial hemorrhage. BRAIN: No mass effect or edema. Mild atrophy is noted. VENTRICLES: Unremarkable. No hydrocephalus. CALVARIUM: Unremarkable. PARANASAL SINUSES: Unremarkable as visualized. No significant inflammatory changes. MASTOID AIR CELLS: Unremarkable as visualized. No inflammatory changes. OTHER FINDINGS: None. IMPRESSION: No evidence of acute intracranial hemorrhage mass lesion mass effect or midline shift. If clinically warranted further assessment by enhanced CT or MRI may be obtained.
--- NOTE | 2017-09-21 16:33 | CT ---
PROCEDURE: CT Cervical Spine without contrast HISTORY: Right arm numbness evaluate for compression. History of lung cancer COMPARISON: None available. TECHNIQUE: Axial computed tomography images were obtained of the cervical spine without the use of intravenous contrast. Coronal and sagittal reformatted images were created and reviewed. Radiation dose: Total exam DLP = 599.56 mGy-cm. This CT exam was performed using one or more of the following dose reduction techniques: Automated exposure control, adjustment of the mA and/or kV according to patient size, and/or use of iterative reconstruction technique. FINDINGS: VERTEBRAE: No fracture. Normal alignment. No destructive bony lesion. Straightening of the cervical spine which could be due to muscle spasm. DISCS/SPINAL CANAL/NEURAL FORAMINA: Small to moderate size osteophyte disc bulge complex noted at C5-C6 associated with mild spinal and neural foraminal narrowing. [id number] narrowing of the disc is space at C5-C6. Partially imaged large pleural effusion at the right chest. PARASPINAL SOFT TISSUES: Unremarkable. OTHER FINDINGS: None. IMPRESSION: No evidence of destructive bony lesion. No CT evidence of cord compression. Small to moderate size osteophyte disc bulge complex at C5-C6 associated with mild spinal and neural foraminal narrowing. Large right pleural effusion.
--- NOTE | 2017-09-21 16:41 | CT ---
PROCEDURE: CT Thoracic Spine without contrast HISTORY: Lung ca mets,right arm numbness,r/ocompression COMPARISON: Comparison is made to the previous CT of the chest dated 09/20/2017 TECHNIQUE: Axial computed tomography images were obtained of the thoracic spine without intravenous contrast. Coronal and sagittal reformatted images were created and reviewed. Radiation dose: Total exam DLP = 941.38 mGy-cm. This CT exam was performed using one or more of the following dose reduction techniques: Automated exposure control, adjustment of the mA and/or kV according to patient size, and/or use of iterative reconstruction technique. FINDINGS: VERTEBRAE: There are multiple lytic lesions seen at the thoracic spine. The largest lesion seen at the posterior aspect of T10 measures 1.9 centimeter.. DISCS/SPINAL CANAL/NEURAL FORAMINA: Within the limits of the CT technique, no disc herniation seen. No evidence of significant central canal or neural foraminal stenosis.. PARASPINAL SOFT TISSUES: Large right lung central mass extending to the mediastinum is again noted. Large right pleural effusion is again seen.. OTHER FINDINGS: Unremarkable. IMPRESSION: Multiple lytic lesions in the thoracic spine consistent with metastasis. No definite evidence of significant spinal canal stenosis in this study.
--- NOTE | 2017-09-21 17:53 | CP.PCM.CON ---
History of Present Illness - History of Present Illness History of Present Illness: Cardiothoracic Surgery Dr. Burton 57 y/o M w/ PMHx of hypothyroidism presented to the ED on 09/20/17 c/o SOB and (R ) arm weakness. Pt's is present at bedside contributing to the history. Pt reports generalized weakness, pain, numbness, and tingling in RUE x2mons. Pt saw PMD and was prescribed muscles relaxers. Pt reports no improvement in pain and weakness, at which time pt was referred to an orthopedic surgeon. Shoulder x -rays were negative and pt was advised to get MRI. Pt has been waiting for insurance approval for MRI. In addition to the should pain, pt and report an unintentional weight loss of 20lbs and anorexia associated w/ nausea. Pt also admits to worsening SOB. Pt denies SOB at rest but admits to dyspnea w/ exertion and occasionally while lying flat. Pt reports occasional palpitations and non-productive cough. Pt denies LESLIE, syncope, CP, abd pain, D/C, dysuria. Pt had Chest CT performed in ED and was found to have a large (R) pleural effusion and (R) middle lung mass causing mediastinal shift. CT of cervical and thoracic spine were concerning for multiple lytic bones lesion. Pulmonology was consulted and recommended a thoracentesis; however, pt requested the procedure be delayed until tomorrow. Surgery was consulted for possible chest tube placement and for R middle lung mass. PMHx: see above Meds: reviewed in chart NKDA PSHx: denies SHx: denies tobacco use or 2nd hand smoke exposure, denies EtOH, drug use FHx: father - prostate Ca; mother - HTN, DM Review of Systems - Review of Systems All systems: reviewed and no additional remarkable complaints except (see HPI) Past Patient History - Infectious Disease Hx of Infectious Diseases: None - Past Medical History & Family History Past Medical History?: Yes - Past Social History Smoking Status: Never Smoked - CARDIAC Hx Hypercholesterolemia: Yes (DENIES) - PULMONARY Hx Respiratory Disorders: No - NEUROLOGICAL Hx Neurological Disorder: No - HEENT Hx HEENT Problems: No - RENAL Hx Chronic Kidney Disease: No - ENDOCRINE/METABOLIC Hx Hypothyroidism: Yes - HEMATOLOGICAL/ONCOLOGICAL Hx Blood Disorders: No - INTEGUMENTARY Hx Dermatological Problems: No - MUSCULOSKELETAL/RHEUMATOLOGICAL Hx Musculoskeletal Disorders: No Hx Falls: No - GASTROINTESTINAL Hx Gastrointestinal Disorders: No - GENITOURINARY/GYNECOLOGICAL Hx Genitourinary Disorders: No - PSYCHIATRIC Hx Substance Use: No - SURGICAL HISTORY Hx Surgeries: No - ANESTHESIA Hx Anesthesia: Yes Hx Anesthesia Reactions: No Meds Allergies/Adverse Reactions: Allergies Allergy/AdvReac Type Severity Reaction Status Date / Time No Known Allergies Allergy Verified 11/15/16 07:42 - Medications Medications: Current Medications Famotidine (Pepcid) 20 mg PO BID [facility] Last Admin: 09/21/17 17:30 Dose: 20 mg Heparin Sodium (Porcine) (Heparin) 5,000 units SC Q8 [facility] Last Admin: 09/21/17 13:48 Dose: 5,000 units Azithromycin 500 mg/ Sodium (Chloride) 250 mls @ 250 mls/hr IVPB DAILY [facility] Last Admin: 09/21/17 11:06 Dose: 250 mls/hr Ceftriaxone Sodium 1 gm/ (Sodium Chloride) 100 mls @ 100 mls/hr IVPB DAILY [facility] Last Admin: 09/21/17 10:58 Dose: 100 mls/hr Levothyroxine Sodium (Synthroid) 25 mcg PO DAILY@0630 [facility] Last Admin: 09/21/17 05:37 Dose: 25 mcg Ondansetron HCl (Zofran Inj) 4 mg IVP Q6 PRN PRN Reason: Nausea/Vomiting Pneumococcal Polyvalent Vaccine (Pneumovax 23 Vaccine) 0.5 ml IM .ONCE ONE Stop: 09/23/17 10:01 Physical Exam - Constitutional Appears: Non-toxic, No Acute Distress, Cachectic - Head Exam Head Exam: NORMAL INSPECTION - Eye Exam Eye Exam: Normal appearance - ENT Exam ENT Exam: Mucous Membranes Moist - Neck Exam Neck exam: Positive for: Normal Inspection - Respiratory Exam Respiratory Exam: Decreased Breath Sounds (R anterior worse than R posterior), NORMAL BREATHING PATTERN. absent: Accessory Muscle Use, Chest Wall Tenderness Additional comments: (R)-sided (+) egophony poor aeration of R lung - Cardiovascular Exam Cardiovascular Exam: absent: Bradycardia, Tachycardia - GI/Abdominal Exam GI & Abdominal Exam: Soft. absent: Distended, Firm, Guarding, Tenderness - Extremities Exam Extremities exam: Negative for: calf tenderness, pedal edema - Neurological Exam Neurological exam: Alert, Oriented x3 - Psychiatric Exam Psychiatric exam: Normal Affect, Normal Mood - Skin Skin Exam: Dry, Intact, Normal Color, Warm Results - Vital Signs Recent Vital Signs: Last Vital Signs Temp 98.5 F 09/21/17 15:00 Pulse 101 H 09/21/17 15:00 Resp 20 09/21/17 15:00 BP 118/87 09/21/17 15:00 Pulse Ox 100 09/21/17 15:00 - Labs Result Diagrams: 09/21/17 06:44 09/21/17 06:44 Labs: Laboratory Results - last 24 hr 09/20/17 09/20/17 09/20/17 18:18 18:45 18:45 WBC 13.2 H RBC 4.00 L Hgb 11.9 L Hct 35.3 MCV 88.3 MCH 29.7 MCHC 33.6 RDW 13.3 Plt Count 655 H MPV 8.1 Neut % (Auto) 79.2 H Lymph % (Auto) 12.1 L Roosevelt % (Auto) 7.9 Eos % (Auto) 0.4 Baso % (Auto) 0.4 Neut # 10.4 H Lymph # 1.6 Roosevelt # 1.0 H Eos # 0.1 Baso # 0.0 PT 14.0 H INR 1.2 APTT 33 Sodium Potassium Chloride Carbon Dioxide Anion Gap BUN Creatinine Est GFR ( Amer) Est GFR (Non-Af Amer) POC Glucose (mg/dL) 106 Random Glucose Calcium Magnesium Total Bilirubin AST ALT Alkaline Phosphatase Troponin I NT-Pro-B Natriuret Pep Total Protein Albumin Globulin Albumin/Globulin Ratio Free T4 TSH 3rd Generation Urine Color Urine Clarity Urine pH Ur Specific [place] Urine Protein Urine Glucose (UA) Urine Ketones Urine Blood Urine Nitrate Urine Bilirubin Urine Urobilinogen Ur Leukocyte Esterase Urine WBC (Auto) Urine RBC (Auto) Urine Bacteria Hyaline Casts 09/20/17 09/20/17 09/20/17 18:45 18:45 19:41 WBC RBC Hgb Hct MCV MCH MCHC RDW Plt Count MPV Neut % (Auto) Lymph % (Auto) [place] % (Auto) Eos % (Auto) Baso % (Auto) Neut # Lymph # Roosevelt # Eos # Baso # PT INR APTT Sodium 137 Potassium 3.8 Chloride 97 L Carbon Dioxide 32 H Anion Gap 12 BUN 14 Creatinine 0.8 Est GFR ( Amer) > 60 Est GFR (Non-Af Amer) > 60 POC Glucose (mg/dL) Random Glucose 110 Calcium 8.7 Magnesium 2.0 Total Bilirubin 0.7 AST 38 ALT 32 Alkaline Phosphatase 189 H Troponin I < 0.0120 NT-Pro-B Natriuret Pep 79.9 Total Protein 7.2 Albumin 3.6 Globulin 3.6 Albumin/Globulin Ratio 1.0 Free T4 1.49 TSH 3rd Generation 2.09 Urine Color Yellow Urine Clarity Clear Urine pH 6.0 Ur Specific [place] 1.015 Urine Protein Negative Urine Glucose (UA) Normal Urine Ketones Trace Urine Blood Negative Urine Nitrate Negative Urine Bilirubin Negative Urine Urobilinogen Normal Ur Leukocyte Esterase Neg Urine WBC (Auto) 2 Urine RBC (Auto) 3 Urine Bacteria Rare Hyaline Casts 0-2 09/21/17 09/21/17 06:44 06:44 WBC 12.5 H RBC 3.46 L Hgb 10.5 L Hct 30.7 L MCV 88.6 MCH 30.3 MCHC 34.2 RDW 13.2 Plt Count 561 H MPV 8.6 Neut % (Auto) 76.0 H Lymph % (Auto) 12.7 L [place] % (Auto) 9.2 Eos % (Auto) 1.5 Baso % (Auto) 0.6 Neut # 9.5 H Lymph # 1.6 Roosevelt # 1.1 H Eos # 0.2 Baso # 0.1 PT INR APTT Sodium 136 Potassium 3.7 Chloride 100 Carbon Dioxide 33 H Anion Gap 7 L BUN 12 Creatinine 0.7 L Est GFR ( Amer) > 60 Est GFR (Non-Af Amer) > 60 POC Glucose (mg/dL) Random Glucose 135 H Calcium 8.0 L Magnesium Total Bilirubin 0.5 AST 39 ALT 40 Alkaline Phosphatase 155 H Troponin I NT-Pro-B Natriuret Pep Total Protein 6.9 Albumin 2.9 L Globulin 4.1 H Albumin/Globulin Ratio 0.7 L Free T4 TSH 3rd Generation Urine Color Urine Clarity Urine pH Ur Specific [place] Urine Protein Urine Glucose (UA) Urine Ketones Urine Blood Urine Nitrate Urine Bilirubin Urine Urobilinogen Ur Leukocyte Esterase Urine WBC (Auto) Urine RBC (Auto) Urine Bacteria Hyaline Casts - Imaging and Cardiology CT scan - chest Status: Image reviewed by me Chest x-ray Status: Image reviewed by me CT scan - C/T spine Status: Image reviewed by me Assessment & Plan - Assessment and Plan (Free Text) Assessment: 57 y/o M w/ large (R) sided pleural effusion and middle lung mass - closely monitor vitals - cont Nasal canula - recommend thoracentesis vs R Chest tube placement w/ cytology - pt could potentially benefit from bronchoscopy w/ Bx once improved pleural effusion - f/u Neurology recs - f/u HemeOnc recs - encourage PO intake - GI/DVT PPx Pt discussed w/ Dr. Josephine Ramirez DO PGY2
--- NOTE | 2017-09-22 01:29 | CP.PCM.PN ---
<Alyce Baez - Last Filed: 09/22/17 01:26> Subjective - Date & Time of Evaluation Date of Evaluation: 09/22/17 Time of Evaluation: 01:26 - Subjective Subjective: Medicine Progress Note for Dr. Elmore Patient was seen and examined at bedside. Patient reports he is feeling better, less short of breath, and less discomfort in the left upper extremity. He states when he is cold, its harder for him to talk a lot. Patient denies having chest pain, abdominal pain, nausea, vomiting, fevers, leg pain/swelling and headaches. Objective - Vital Signs/Intake and Output Vital Signs (last 24 hours): Temp Pulse Resp BP Pulse Ox 98.8 F 118 H 20 108/78 100 09/21/17 23:10 09/22/17 00:00 09/21/17 23:10 09/21/17 23:10 09/21/17 23:10 Intake and Output: 09/21/17 09/22/17 18:59 06:59 Intake Total 700 Balance 700 - Medications Medications: Current Medications Famotidine (Pepcid) 20 mg PO BID [facility] Last Admin: 09/21/17 17:30 Dose: 20 mg Heparin Sodium (Porcine) (Heparin) 5,000 units SC Q8 [facility] Last Admin: 09/21/17 21:24 Dose: 5,000 units Azithromycin 500 mg/ Sodium (Chloride) 250 mls @ 250 mls/hr IVPB DAILY [facility] Last Admin: 09/21/17 11:06 Dose: 250 mls/hr Ceftriaxone Sodium 1 gm/ (Sodium Chloride) 100 mls @ 100 mls/hr IVPB DAILY [facility] Last Admin: 09/21/17 10:58 Dose: 100 mls/hr Levothyroxine Sodium (Synthroid) 25 mcg PO DAILY@0630 [facility] Last Admin: 09/21/17 05:37 Dose: 25 mcg Ondansetron HCl (Zofran Inj) 4 mg IVP Q6 PRN PRN Reason: Nausea/Vomiting Pneumococcal Polyvalent Vaccine (Pneumovax 23 Vaccine) 0.5 ml IM .ONCE ONE Stop: 09/23/17 10:01 - Labs Labs: 09/21/17 06:44 09/21/17 06:44 PT 14.0 SECONDS (9.7-12.2) H 12/08/17 18:45 INR 1.2 09/20/17 18:45 APTT 33 SECONDS (21-34) 09/20/17 18:45 - Additional Findings Additional findings: - Constitutional Appears: Non-toxic, No Acute Distress - Head Exam Head Exam: NORMAL INSPECTION - Eye Exam Eye Exam: EOMI - ENT Exam ENT Exam: Mucous Membranes Moist - Respiratory Exam Respiratory Exam: Decreased Breath Sounds. absent: Accessory Muscle Use, Respiratory Distress, Stridor - Cardiovascular Exam Cardiovascular Exam: REGULAR RHYTHM, +S1, +S2. absent: Gallop, Rubs, Murmur - GI/Abdominal Exam GI & Abdominal Exam: Soft, Normal Bowel Sounds. absent: Tenderness - Extremities Exam Extremities Exam: absent: Pedal Edema - Neurological Exam Neurological Exam: Alert, Awake, Oriented x3 Neuro motor strength exam: Left Upper Extremity: 5, Right Upper Extremity: 5 - Psychiatric Exam Psychiatric exam: Normal Affect, Normal Mood - Skin Skin Exam: Normal Color, Warm Assessment and Plan (1) Pleural effusion on right Status: Acute (2) Lung mass Status: Acute (3) Right upper limb pain Status: Acute (4) Hypothyroidism Status: Acute (5) Prophylactic measure Status: Acute - Assessment and Plan (Free Text) Plan: Pleural effusion on right Assessment and Plan: * Chest Xray (09/20): large right sided pleural effusion; pending official read * Chest CT (09/20): severe right pleural effusion with associated ateletasis/ lung collapse; evidence of underlying large heterogenous mass involving medial right lung field and mediastinum ([id number]); significant mediastinal shift to the left; mild pericardial effusion; multiple lytic foci in vertebral bodies concerning for metastatic disease. * O2 prn via nasal cannula * IR consulted for pleural fluid analysis, help appreciated. * Pulm consulted - Dr. Caicedo - help appreciated * Dr. Caicedo wanted to go thoracentesis today. Patient was nervous and wanted his to be there when it is done. Patient will have procedure tomorrow * Thoracic surgery consulted - Dr. Alaniz - f/u recs in case patient needs chest tube Status: Acute Lung mass Assessment and Plan: * Chest CT (09/20): severe right pleural effusion with associated ateletasis/ lung collapse; evidence of underlying large heterogenous mass involving medial right lung field and mediastinum ([id number]); significant mediastinal shift to the left; mild pericardial effusion; multiple lytic foci in vertebral bodies concerning for metastatic disease * Head CT: no evidence of acute intracranial hemorrhage, mass lesion, mass effect or midline shift * Thoracic spine CT: multiple lytic lesions in thoracic spine consistent with metastasis * Cervical spine CT: no evidence of destructive bony lesion; small to moderate size osteophyte disc bulge complex at C5-6 associated with mild spinal and neural foraminal narrowing; large right pleural effusion. * Heme/Onc consulted, Dr. Sultana, help appreciated. * Pulm consulted - Dr. Caicedo - help appreciated Status: Acute Right upper limb pain/numbness Assessment and Plan: Patient complains of right upper extremity and right back pain and numbness * Likely secondary to pleural effusion and right lung mass * Right Upper Extremity Doppler: f/u results * Possibly secondary to nerve infringement, will get MRI once pleural effusion is resolved * Neurology consulted, Dr. Bowden, help appreciated * Head CT: no evidence of acute intracranial hemorrhage, mass lesion, mass effect or midline shift * Thoracic spine CT: multiple lytic lesions in thoracic spine consistent with metastasis * Cervical spine CT: no evidence of destructive bony lesion; small to moderate size osteophyte disc bulge complex at C5-6 associated with mild spinal and neural foraminal narrowing; large right pleural effusion Status: Acute Hypothyroidism Assessment and Plan: Continue home medication: Levothyroxine 25mcg PO daily. * TSH: 2.09 * T4: Status: Acute Prophylactic measure Assessment and Plan: Heparin 5,000 SC Q8h Pepcid 20mg PO BID Regular Diet O2 via nasal cannula prn Status: Acute <Anson Elmore - Last Filed: 09/22/17 11:14> Objective - Vital Signs/Intake and Output Vital Signs (last 24 hours): Temp Pulse Resp BP Pulse Ox 98.1 F 112 H 18 114/81 97 09/22/17 08:30 09/22/17 08:30 09/22/17 08:30 09/22/17 08:30 09/22/17 08:30 Intake and Output: 09/22/17 09/22/17 06:59 18:59 Intake Total 150 Output Total 300 Balance -150 - Medications Medications: Current Medications Famotidine (Pepcid) 20 mg PO BID [facility] Last Admin: 09/22/17 09:51 Dose: 20 mg Heparin Sodium (Porcine) (Heparin) 5,000 units SC Q8 [facility] Last Admin: 09/21/17 21:24 Dose: 5,000 units Azithromycin 500 mg/ Sodium (Chloride) 250 mls @ 250 mls/hr IVPB DAILY [facility] Last Admin: 09/21/17 11:06 Dose: 250 mls/hr Ceftriaxone Sodium 1 gm/ (Sodium Chloride) 100 mls @ 100 mls/hr IVPB DAILY [facility] Last Admin: 09/22/17 09:41 Dose: 100 mls/hr Levothyroxine Sodium (Synthroid) 25 mcg PO DAILY@0630 [facility] Last Admin: 09/22/17 05:49 Dose: 25 mcg Ondansetron HCl (Zofran Inj) 4 mg IVP Q6 PRN PRN Reason: Nausea/Vomiting Pneumococcal Polyvalent Vaccine (Pneumovax 23 Vaccine) 0.5 ml IM .ONCE ONE Stop: 09/23/17 10:01 - Labs Labs: 09/22/17 07:36 09/22/17 07:36 PT 14.0 SECONDS (9.7-12.2) H 09/20/17 18:45 INR 1.2 09/20/17 18:45 APTT 33 SECONDS (21-34) 09/20/17 18:45 Attending/Attestation - Attestation I have personally seen and examined this patient.: Yes I have fully participated in the care of the patient.: Yes I have reviewed all pertinent clinical information, including history, physical exam and plan: Yes Notes (Text): Patient was seen and examined.Sitting comfortable,Denies discomfort,alert and oriented x3 He is tachycardia 100 to 120 since he came.No changes No SOB,Spoke to his at bedside. D/W Dr Caicedo. Planning for thoracentesis tomorrow morning we will continue his antibiotics,NPO after midnight I agree with the resident's documentation of the assessment and the plan 09/22/17 10:35
[2017-09-22] MEDS: Levothyroxine 25 MCG TAB PO SCH (05:49)
[2017-09-22 07:46] LABS: BASO # 0.1 K/uL (0.0-0.2); BASO % 0.8 % (0.0-2.0); EOS # 0.2 K/uL (0.0-0.7); EOS % 1.4 % (0.0-4.0); HEMATOCRIT 33.7 % (35.0-51.0); LYMPH # 1.5 K/uL (1.0-4.3); MEAN CELL VOLUME 88.6 fL (80.0-94.0); MEAN CORPUSCULAR HEMOGLOBIN 29.6 pg (27.0-31.0); MEAN CORPUSCULAR HGB CONC 33.4 g/dL (33.0-37.0); MEAN PLATELET VOLUME 8.9 fL (7.2-11.7); MONO % 7.7 % (0.0-10.0); NRBC % 0.3 % (0.0-2.0); RED CELL DISTRIBUTION WIDTH 13.3 % (11.5-14.5); WHITE BLOOD COUNT 12.5 K/uL (4.8-10.8)
--- NOTE | 2017-09-22 07:47 | CP.PCM.PN ---
Subjective - Date & Time of Evaluation Date of Evaluation: 09/22/17 Time of Evaluation: 07:15 - Subjective Subjective: Thoracic Surgery Dr. Burton Pt S&E @bedside. NAEO. Pt has no complaints. Denies F/C, CP, SOB, N/V, (R) arm pain/weakness/paresthesia. Tolerating diet. Objective - Vital Signs/Intake and Output Vital Signs (last 24 hours): Temp Pulse Resp BP Pulse Ox 98.8 F 119 H 20 108/78 100 09/21/17 23:10 09/22/17 04:00 09/21/17 23:10 09/21/17 23:10 09/21/17 23:10 Intake and Output: 09/22/17 09/22/17 06:59 18:59 Intake Total 150 Output Total 300 Balance -150 - Medications Medications: Current Medications Famotidine (Pepcid) 20 mg PO BID [facility] Last Admin: 09/21/17 17:30 Dose: 20 mg Heparin Sodium (Porcine) (Heparin) 5,000 units SC Q8 [facility] Last Admin: 09/21/17 21:24 Dose: 5,000 units Azithromycin 500 mg/ Sodium (Chloride) 250 mls @ 250 mls/hr IVPB DAILY [facility] Last Admin: 09/21/17 11:06 Dose: 250 mls/hr Ceftriaxone Sodium 1 gm/ (Sodium Chloride) 100 mls @ 100 mls/hr IVPB DAILY [facility] Last Admin: 09/21/17 10:58 Dose: 100 mls/hr Levothyroxine Sodium (Synthroid) 25 mcg PO DAILY@0630 [facility] Last Admin: 09/22/17 05:49 Dose: 25 mcg Ondansetron HCl (Zofran Inj) 4 mg IVP Q6 PRN PRN Reason: Nausea/Vomiting Pneumococcal Polyvalent Vaccine (Pneumovax 23 Vaccine) 0.5 ml IM .ONCE ONE Stop: 09/23/17 10:01 - Labs Labs: 09/21/17 06:44 09/21/17 06:44 PT 14.0 SECONDS (9.7-12.2) H 09/20/17 18:45 INR 1.2 09/20/17 18:45 APTT 33 SECONDS (21-34) 09/20/17 18:45 - Constitutional Appears: Non-toxic, No Acute Distress, Cachectic - Head Exam Head Exam: NORMAL INSPECTION - Eye Exam Eye Exam: Normal appearance - ENT Exam ENT Exam: Mucous Membranes Moist - Respiratory Exam Respiratory Exam: NORMAL BREATHING PATTERN. absent: Accessory Muscle Use, Respiratory Distress - Cardiovascular Exam Cardiovascular Exam: absent: Bradycardia, Tachycardia - GI/Abdominal Exam GI & Abdominal Exam: Soft. absent: Distended, Guarding, Tenderness, Rebound - Extremities Exam Additional comments: no appreciable deficits in UE muscle strength B/L - Neurological Exam Neurological Exam: Alert, Awake, Oriented x3 Neuro motor strength exam: Left Upper Extremity: 5 (parquetry floor layer, flexion extension, shoulder shrug), Right Upper Extremity: 5 (parquetry floor layer, flexion extension, shoulder shrug) - Psychiatric Exam Psychiatric exam: Normal Affect, Normal Mood - Skin Skin Exam: Dry, Intact, Normal Color, Warm Assessment and Plan - Assessment and Plan (Free Text) Assessment: 57 y/o M w/ large (R) sided pleural effusion and R middle lung mass - closely monitor vitals - cont Nasal canula PRN - recommend thoracentesis vs R Chest tube placement - recommend pleural fluid cytology - f/u Pulm recs - f/u Neurology recs - f/u Heme/Onc recs - encourage PO intake - encourgae OOB to chair/Amb/IS use - GI/DVT PPx Pt discussed w/ Dr. Josephine Ramirez DO PGY2
[2017-09-22 08:10] LABS: ALB/GLOB RATIO 0.9 (1.0-2.1); ALKALINE PHOSPHATASE 161 U/L (38-126); ALT/SGPT 30 U/L (21-72); AST/SGOT 36 U/L (17-59); BILIRUBIN,TOTAL 0.6 mg/dL (0.2-1.3); BLOOD UREA NITROGEN 11 mg/dL (9-20); CALCIUM 8.5 mg/dl (8.6-10.4); CARBON DIOXIDE 30 mmol/L (22-30); CHLORIDE 99 mmol/L (98-107); GFR AFRICAN-AMERICAN > 60; GLUCOSE,RANDOM 113 mg/dL (75-110); POTASSIUM 3.9 mmol/L (3.6-5.2); SODIUM 137 mmol/L (132-148); TOTAL PROTEIN 6.4 g/dL (6.3-8.3)
[2017-09-22] MEDS: Azithromycin 500 MG in Sodium Chloride 0.9% 250 ML IVPB SCH (10:55)
--- NOTE | 2017-09-22 11:32 | CP.PCM.PN ---
Subjective - Date & Time of Evaluation Date of Evaluation: 09/22/17 Time of Evaluation: 11:31 - Subjective Subjective: Mr. Draper was seen and examined at the bedside. He is alert, oriented with complains of continuous back pain characterized as dull, 4/10. Pain is aggravated with movement.. He further states of feeling nausea, on medication for anti-nausea. He is weak, but able move all extremities. CT of the spine did not show any spinal cord stenosis or impingement and head did not show any brain mets.There was no untoward events overnight. Objective - Vital Signs/Intake and Output Vital Signs (last 24 hours): Temp Pulse Resp BP Pulse Ox 98.1 F 112 H 18 114/81 97 09/22/17 08:30 09/22/17 08:30 09/22/17 08:30 09/22/17 08:30 09/22/17 08:30 Intake and Output: 09/22/17 09/22/17 06:59 18:59 Intake Total 150 Output Total 300 Balance -150 - Medications Medications: Current Medications Famotidine (Pepcid) 20 mg PO BID [facility] Last Admin: 09/22/17 09:51 Dose: 20 mg Heparin Sodium (Porcine) (Heparin) 5,000 units SC Q8 [facility] Last Admin: 09/21/17 21:24 Dose: 5,000 units Azithromycin 500 mg/ Sodium (Chloride) 250 mls @ 250 mls/hr IVPB DAILY [facility] Last Admin: 09/22/17 10:55 Dose: 250 mls/hr Ceftriaxone Sodium 1 gm/ (Sodium Chloride) 100 mls @ 100 mls/hr IVPB DAILY [facility] Last Admin: 09/22/17 09:41 Dose: 100 mls/hr Levothyroxine Sodium (Synthroid) 25 mcg PO DAILY@0630 [facility] Last Admin: 09/22/17 05:49 Dose: 25 mcg Ondansetron HCl (Zofran Inj) 4 mg IVP Q6 PRN PRN Reason: Nausea/Vomiting Pneumococcal Polyvalent Vaccine (Pneumovax 23 Vaccine) 0.5 ml IM .ONCE ONE Stop: 09/23/17 10:01 - Labs Labs: 09/22/17 07:36 09/22/17 07:36 PT 14.0 SECONDS (9.7-12.2) H 09/20/17 18:45 INR 1.2 09/20/17 18:45 APTT 33 SECONDS (21-34) 09/20/17 18:45 - Constitutional Appears: No Acute Distress - Head Exam Head Exam: ATRAUMATIC - Neurological Exam Neurological Exam: Alert, Awake, Oriented x3 Neuro motor strength exam: Left Upper Extremity: 3, Right Upper Extremity: 3, Left Lower Extremity: 3, Right Lower Extremity: 3 Additional comments: Reflexes were diminished slightly on the C5/C6 region on the right side. Sensation was diminished and associated with an electric/burning pain over the C6 dermatome along with the ventral axial line of the upper limb with extension into C8-T1. Assessment and Plan (1) Lung mass Assessment & Plan: Case discussed with Dr. Bowden, continue all current medical regimen. Please refer to oncology regarding pain medications. With no spinal cord stenosis and nerve impingement, MRI of the spine is not recommended at this time.There is no new recommendation from neurology. Status: Acute
[2017-09-23] MEDS: Levothyroxine 25 MCG TAB PO SCH (05:30)
[2017-09-23 06:25] LABS: BASO # 0.1 K/uL (0.0-0.2); BASO % 0.6 % (0.0-2.0); EOS # 0.2 K/uL (0.0-0.7); LYMPH # 1.6 K/uL (1.0-4.3); LYMPH % 13.2 % (20.0-40.0); MEAN CELL VOLUME 88.7 fL (80.0-94.0); MEAN CORPUSCULAR HEMOGLOBIN 29.8 pg (27.0-31.0); MEAN CORPUSCULAR HGB CONC 33.6 g/dL (33.0-37.0); MEAN PLATELET VOLUME 8.4 fL (7.2-11.7); MONO # 1.2 K/uL (0.0-0.8); MONO % 9.5 % (0.0-10.0); RED CELL DISTRIBUTION WIDTH 12.9 % (11.5-14.5); WHITE BLOOD COUNT 12.4 K/uL (4.8-10.8)
--- NOTE | 2017-09-23 07:10 | CP.PCM.PN ---
<Alyce Baez - Last Filed: 09/23/17 13:32> Subjective - Date & Time of Evaluation Date of Evaluation: 09/23/17 Time of Evaluation: 07:10 - Subjective Subjective: Medicine Progress Note for Dr. Khan Patient was seen and examined at bedside in no acute distress. Patient was laying comfortably in bed. Patient reports feeling well, breathing is better today, and his pain in his arm/shoulder has improved. Patient reports normal bowel movements and denies dysuria. Patient denies having chest pain, abdominal pain, nausea, vomiting, fevers, leg pain/swelling, and headaches. Objective - Vital Signs/Intake and Output Vital Signs (last 24 hours): Temp Pulse Resp BP Pulse Ox 98.5 F 115 H 20 120/87 96 09/22/17 23:15 09/23/17 04:00 09/22/17 23:15 09/22/17 23:15 09/22/17 23:15 - Medications Medications: Current Medications Famotidine (Pepcid) 20 mg PO BID [facility] Last Admin: 09/22/17 17:29 Dose: 20 mg Heparin Sodium (Porcine) (Heparin) 5,000 units SC Q8 [facility] Last Admin: 09/22/17 21:15 Dose: 5,000 units Azithromycin 500 mg/ Sodium (Chloride) 250 mls @ 250 mls/hr IVPB DAILY [facility] Last Admin: 09/22/17 10:55 Dose: 250 mls/hr Ceftriaxone Sodium 1 gm/ (Sodium Chloride) 100 mls @ 100 mls/hr IVPB DAILY [facility] Last Admin: 09/22/17 09:41 Dose: 100 mls/hr Levothyroxine Sodium (Synthroid) 25 mcg PO DAILY@0630 [facility] Last Admin: 09/23/17 05:30 Dose: 25 mcg Ondansetron HCl (Zofran Inj) 4 mg IVP Q6 PRN PRN Reason: Nausea/Vomiting Pneumococcal Polyvalent Vaccine (Pneumovax 23 Vaccine) 0.5 ml IM .ONCE ONE Stop: 09/23/17 10:01 - Labs Labs: 09/23/17 06:00 09/22/17 07:36 PT 14.0 SECONDS (9.7-12.2) H 09/20/17 18:45 INR 1.2 09/20/17 18:45 APTT 33 SECONDS (21-34) 09/20/17 18:45 - Additional Findings Additional findings: - Constitutional Appears: Non-toxic, No Acute Distress - Head Exam Head Exam: NORMAL INSPECTION - Eye Exam Eye Exam: EOMI - ENT Exam ENT Exam: Mucous Membranes Moist - Respiratory Exam Respiratory Exam: Decreased Breath Sounds (R>L). absent: Accessory Muscle Use, Respiratory Distress, Stridor - Cardiovascular Exam Cardiovascular Exam: REGULAR RHYTHM, +S1, +S2, tachycardic. absent: Gallop, Rubs, Murmur - GI/Abdominal Exam GI & Abdominal Exam: Soft, Normal Bowel Sounds. absent: Tenderness - Extremities Exam Extremities Exam: absent: Pedal Edema - Neurological Exam Neurological Exam: Alert, Awake, Oriented x3 Neuro motor strength exam: Left Upper Extremity: 5, Right Upper Extremity: 5 - Psychiatric Exam Psychiatric exam: Normal Affect, Normal Mood - Skin Skin Exam: Normal Color, Warm Assessment and Plan (1) Pleural effusion on right Status: Acute (2) Lung mass Status: Acute (3) Right upper limb pain Status: Acute (4) Hypothyroidism Status: Acute (5) Prophylactic measure Status: Acute - Assessment and Plan (Free Text) Plan: Pleural effusion on right Assessment and Plan: * Chest Xray (09/20): large right sided pleural effusion; pending official read * Chest CT (09/20): severe right pleural effusion with associated ateletasis/ lung collapse; evidence of underlying large heterogenous mass involving medial right lung field and mediastinum ([id number]); significant mediastinal shift to the left; mild pericardial effusion; multiple lytic foci in vertebral bodies concerning for metastatic disease. * O2 prn via nasal cannula * IR consulted for pleural fluid analysis, help appreciated. * Patient is NPO for thoracentesis scheduled for today, 09/23 * Pulm consulted - Dr. Caicedo - help appreciated * Dr. Caicedo planned for thoracentesis on saturday, 09/21; however, patient was nervous and wanted his to be there when it is done. Thoracentesis was not performed over weekend. * Thoracic surgery consulted - Dr. Alaniz - f/u recs in case patient needs chest tube Status: Acute Lung mass Assessment and Plan: * Chest CT (09/20): severe right pleural effusion with associated ateletasis/ lung collapse; evidence of underlying large heterogenous mass involving medial right lung field and mediastinum ([id number]); significant mediastinal shift to the left; mild pericardial effusion; multiple lytic foci in vertebral bodies concerning for metastatic disease * Head CT: no evidence of acute intracranial hemorrhage, mass lesion, mass effect or midline shift * Thoracic spine CT: multiple lytic lesions in thoracic spine consistent with metastasis * Cervical spine CT: no evidence of destructive bony lesion; small to moderate size osteophyte disc bulge complex at C5-6 associated with mild spinal and neural foraminal narrowing; large right pleural effusion. * Heme/Onc consulted, Dr. Sultana, help appreciated. * Pulm consulted - Dr. Caicedo - help appreciated Status: Acute Right upper limb pain/numbness Assessment and Plan: Patient complains of right upper extremity and right back pain and numbness * Likely secondary to pleural effusion and right lung mass * Right Upper Extremity Doppler: f/u results * Possibly secondary to nerve infringement, will get MRI once pleural effusion is resolved * Neurology consulted, Dr. Bowden, help appreciated * Head CT: no evidence of acute intracranial hemorrhage, mass lesion, mass effect or midline shift * Thoracic spine CT: multiple lytic lesions in thoracic spine consistent with metastasis * Cervical spine CT: no evidence of destructive bony lesion; small to moderate size osteophyte disc bulge complex at C5-6 associated with mild spinal and neural foraminal narrowing; large right pleural effusion Status: Acute Hypothyroidism Assessment and Plan: Continue home medication: Levothyroxine 25mcg PO daily. * TSH: 2.09 * T4: 1/49 Status: Acute Prophylactic measure Assessment and Plan: Heparin 5,000 SC Q8h Pepcid 20mg PO BID Regular Diet O2 via nasal cannula prn Status: Acute <Nathan Khan H - Last Filed: 09/23/17 15:54> Objective - Vital Signs/Intake and Output Vital Signs (last 24 hours): Temp Pulse Resp BP Pulse Ox 98.7 F 88 18 119/84 100 09/23/17 08:00 09/23/17 08:00 09/23/17 08:00 09/23/17 08:00 09/23/17 08:00 - Medications Medications: Current Medications Famotidine (Pepcid) 20 mg PO BID [facility] Last Admin: 09/23/17 12:03 Dose: Not Given Heparin Sodium (Porcine) (Heparin) 5,000 units SC Q8 [facility] Last Admin: 09/23/17 14:52 Dose: 5,000 units Azithromycin 500 mg/ Sodium (Chloride) 250 mls @ 250 mls/hr IVPB DAILY [facility] Last Admin: 09/23/17 14:00 Dose: 250 mls/hr Ceftriaxone Sodium 1 gm/ (Sodium Chloride) 100 mls @ 100 mls/hr IVPB DAILY [facility] Last Admin: 09/23/17 14:00 Dose: 100 mls/hr Levothyroxine Sodium (Synthroid) 25 mcg PO DAILY@0630 [facility] Last Admin: 09/23/17 05:30 Dose: 25 mcg Ondansetron HCl (Zofran Inj) 4 mg IVP Q6 PRN PRN Reason: Nausea/Vomiting - Labs Labs: 09/23/17 06:00 09/23/17 06:00 PT 14.0 SECONDS (9.7-12.2) H 09/20/17 18:45 INR 1.2 09/20/17 18:45 APTT 33 SECONDS (21-34) 09/20/17 18:45 Attending/Attestation - Attestation I have personally seen and examined this patient.: Yes I have fully participated in the care of the patient.: Yes I have reviewed all pertinent clinical information, including history, physical exam and plan: Yes Notes (Text): 09/23/17 15:54 Medical attending: I reviewed the above note by the medical insurance coding specialist and agree. We reviewed the CT scan of lung showing that the patient has a rather impressive right side pleural effusion. The patient before we saw them was to undergo a thoracentesis of the right side via interventional radiology. I was later informed that 3 L of fluid was withdrawn. There is concerning CT findings of lytic lesions on the thoracic spine. The report suggested the cyst some type of metastasis going on Thank you very much, Nathan Khan
[2017-09-23 07:52] LABS: ALB/GLOB RATIO 0.9 (1.0-2.1); ALKALINE PHOSPHATASE 157 U/L (38-126); ALT/SGPT 35 U/L (21-72); AST/SGOT 26 U/L (17-59); BILIRUBIN,TOTAL 0.5 mg/dL (0.2-1.3); BLOOD UREA NITROGEN 11 mg/dL (9-20); CALCIUM 8.1 mg/dl (8.6-10.4); CARBON DIOXIDE 32 mmol/L (22-30); CHLORIDE 100 mmol/L (98-107); GFR AFRICAN-AMERICAN > 60; GLUCOSE,RANDOM 103 mg/dL (75-110); MAGNESIUM 1.9 mg/dL (1.6-2.3); POTASSIUM 4.1 mmol/L (3.6-5.2); SODIUM 136 mmol/L (132-148); TOTAL PROTEIN 6.2 g/dL (6.3-8.3)
--- NOTE | 2017-09-23 08:16 | CP.PCM.PN ---
Subjective - Date & Time of Evaluation Date of Evaluation: 09/23/17 Time of Evaluation: 08:14 - Subjective Subjective: Mr Draper was seen and examined at the bedside. He is alert, oriented with complains of continuous back pain characterized as dull, 3/10. Pain is aggravated with movement.. He denies any nausea. He is weak, but able move all extremities. He is able to follow simple commands such as finger accommodation , raising his upper extremities and moving his lower extremities. He states of going for a procedure today. There was no untoward events overnight. Objective - Vital Signs/Intake and Output Vital Signs (last 24 hours): Temp Pulse Resp BP Pulse Ox 98.5 F 115 H 20 120/87 96 09/22/17 23:15 09/23/17 04:00 09/22/17 23:15 09/22/17 23:15 09/22/17 23:15 - Medications Medications: Current Medications Famotidine (Pepcid) 20 mg PO BID [facility] Last Admin: 09/22/17 17:29 Dose: 20 mg Heparin Sodium (Porcine) (Heparin) 5,000 units SC Q8 [facility] Last Admin: 09/22/17 21:15 Dose: 5,000 units Azithromycin 500 mg/ Sodium (Chloride) 250 mls @ 250 mls/hr IVPB DAILY [facility] Last Admin: 09/22/17 10:55 Dose: 250 mls/hr Ceftriaxone Sodium 1 gm/ (Sodium Chloride) 100 mls @ 100 mls/hr IVPB DAILY [facility] Last Admin: 09/22/17 09:41 Dose: 100 mls/hr Levothyroxine Sodium (Synthroid) 25 mcg PO DAILY@0630 [facility] Last Admin: 09/23/17 05:30 Dose: 25 mcg Ondansetron HCl (Zofran Inj) 4 mg IVP Q6 PRN PRN Reason: Nausea/Vomiting Pneumococcal Polyvalent Vaccine (Pneumovax 23 Vaccine) 0.5 ml IM .ONCE ONE Stop: 09/23/17 10:01 - Labs Labs: 09/23/17 06:00 09/23/17 06:00 PT 14.0 SECONDS (9.7-12.2) H 09/20/17 18:45 INR 1.2 09/20/17 18:45 APTT 33 SECONDS (21-34) 09/20/17 18:45 - Constitutional Appears: No Acute Distress - Head Exam Head Exam: ATRAUMATIC - Neurological Exam Neurological Exam: Alert, Awake, CN II-XII Intact, Oriented x3 Neuro motor strength exam: Left Upper Extremity: 4, Right Upper Extremity: 4, Left Lower Extremity: 3, Right Lower Extremity: 3 Additional comments: Neurological unchanged from previous examination. Sensation remains intact. Assessment and Plan (1) Lung mass Assessment & Plan: Case discussed with Dr. Bowden, continue all current medical, physical, and occupational therapies. There is no new recommendation from neurology. Status: Acute
[2017-09-23] MEDS ORDERED: Influenza Vaccine 60 mcg/0.5 mL SYR (4YR UP) IM ONE (10:00)
[2017-09-23] MEDS ORDERED: Pneumococcal 23-Valent Vaccine IM ONE (10:00)
--- NOTE | 2017-09-23 10:32 | PCM.SURG1 ---
Surgeon's Initial Post Op Note - Surgeon's Notes Surgeon: Desmond Ortiz MD Rigging Man: NONE Type of Anesthesia: Local Pre-Operative Diagnosis: Right pleural effusion, shortness of breath Operative Findings: US showed a large right effusion. Post-Operative Diagnosis: Right pleural effusion, shortness of breath Operation Performed: US guided right thoracentesis. 3 L of dark dasia colored fluid removed. Specimen/Specimens Removed: 3 liters Estimated Blood Loss: EBL {In ML}: 0 Blood Products Given: N/A Drains Used: No Drains Post-Op Condition: Fair Date of Surgery/Procedure: 09/23/17 Time of Surgery/Procedure: 10:30
--- NOTE | 2017-09-23 10:43 | RAD ---
HISTORY: S/p Right thoracentesis. COMPARISON: 09/20/2017 FINDINGS: LUNGS: There is near complete compressive collapse of the right lung with minimal aeration in the right upper lobe. The left lung is clear. PLEURA: Again seen is a large right pleural effusion both no significant interval change since the prior examination. There is mild shift of mediastinal to the left. No pneumothorax. CARDIOVASCULAR: Stable. OSSEOUS STRUCTURES: No significant abnormalities. VISUALIZED UPPER ABDOMEN: Normal. OTHER FINDINGS: None. IMPRESSION: Status post right thoracentesis, no significant interval change in the large right pleural effusion. No pneumothorax.
[2017-09-23 11:00] LABS: BODY FLUID TYPE PLEURAL/THORACENTESI
--- NOTE | 2017-09-23 11:11 | US ---
PROCEDURE: Date of procedure: 09/23/2017 Procedure: 1. Ultrasound-guided Right thoracentesis, CPT 44786 Medications: 6cc 1% Lidocaine HISTORY: Right pleural effusion, shortness of breath TECHNIQUE: Following informed consent ,the Patients' right chest was marked. Procedure time-out was called, and the patient was placed in the sitting position and limited ultrasound showed a large right effusion. The patient's right back was prepped and draped in the usual sterile fashion. After the skin was anesthetized with lidocaine, a drainage catheter was advanced under ultrasound guidance into the pleural space. Ultrasound-guided thoracentesis was performed. A total of 3000 cubic centimeters of dark dasia-colored fluid removed without complication. A Xeroform dressing was applied. IMPRESSION: Ultrasound guided Right thoracentesis. There were no immediate complications.
--- NOTE | 2017-09-23 11:42 | CP.PCM.PN ---
Subjective - Date & Time of Evaluation Date of Evaluation: 09/23/17 Time of Evaluation: 10:15 - Subjective Subjective: The patient seen and examined Status post thoracentesis and 3 L of fluid removed Denies shortness of breath Afebrile no chest pain Objective - Vital Signs/Intake and Output Vital Signs (last 24 hours): Temp Pulse Resp BP Pulse Ox 98.7 F 88 18 119/84 100 09/23/17 08:00 09/23/17 08:00 09/23/17 08:00 09/23/17 08:00 09/23/17 08:00 - Medications Medications: Current Medications Famotidine (Pepcid) 20 mg PO BID [facility] Last Admin: 09/22/17 17:29 Dose: 20 mg Heparin Sodium (Porcine) (Heparin) 5,000 units SC Q8 [facility] Last Admin: 09/22/17 21:15 Dose: 5,000 units Azithromycin 500 mg/ Sodium (Chloride) 250 mls @ 250 mls/hr IVPB DAILY [facility] Last Admin: 09/22/17 10:55 Dose: 250 mls/hr Ceftriaxone Sodium 1 gm/ (Sodium Chloride) 100 mls @ 100 mls/hr IVPB DAILY [facility] Last Admin: 09/22/17 09:41 Dose: 100 mls/hr Levothyroxine Sodium (Synthroid) 25 mcg PO DAILY@0630 [facility] Last Admin: 09/23/17 05:30 Dose: 25 mcg Ondansetron HCl (Zofran Inj) 4 mg IVP Q6 PRN PRN Reason: Nausea/Vomiting - Labs Labs: 09/23/17 06:00 09/23/17 06:00 PT 14.0 SECONDS (9.7-12.2) H 09/20/17 18:45 INR 1.2 09/20/17 18:45 APTT 33 SECONDS (21-34) 09/20/17 18:45 - Head Exam Head Exam: ATRAUMATIC, NORMOCEPHALIC - Eye Exam Eye Exam: Normal appearance - ENT Exam ENT Exam: Mucous Membranes Moist - Neck Exam Neck Exam: Normal Inspection - Respiratory Exam Respiratory Exam: Decreased Breath Sounds - Cardiovascular Exam Cardiovascular Exam: REGULAR RHYTHM - GI/Abdominal Exam GI & Abdominal Exam: Soft, Normal Bowel Sounds - Extremities Exam Extremities Exam: Normal Inspection - Neurological Exam Neurological Exam: Alert Assessment and Plan (1) Pleural effusion on right Assessment & Plan: status post thoracentesis Rule out malignancy Biopsy of lung mass Pleural fluid for cytology Status: Acute (2) Lung mass Status: Acute
[2017-09-23 12:21] LABS: BF GROSS APPEARANCE CLOUDY (CLEAR)
[2017-09-23 12:22] LABS: BODY FLUID TOTAL COUNT 100 (0-0)
--- NOTE | 2017-09-23 12:51 | CARD ---
APPROVED REPORT EXAM: Two-dimensional and M-mode echocardiogram with Doppler and color Doppler. Other Information Quality : GoodRhythm : INDICATION Dyspnea Pleural Effusion 2D DIMENSIONS IVSd0.9 (0.7-1.1cm)LVDd3.5 (3.9-5.9cm) PWd0.9 (0.7-1.1cm)LVDs2.1 (2.5-4.0cm) FS (%) 39.5 %LVEF (%)71.1 (>50%) M-Mode DIMENSIONS Left Atrium (MM)2.19 (2.5-4.0cm)Aortic Root3.88 (2.2-3.7cm) Aortic Cusp Exc.2.07 (1.5-2.0cm) Mitral Valve MV A Hytkjfdc63.6cm/sE/A ratio0.0 TDI E/Lateral E'0.0E/Medial E'0.0 Tricuspid Valve TR Peak [id number]/sTR Peak Gr.[id number] LEFT VENTRICLE The left ventricle is normal size. There is mild concentric left ventricular hypertrophy. Left ventricle systolic function is normal. The Ejection Fraction is 65-70%. There is normal LV segmental wall motion. Transmitral Doppler flow pattern is Grade I-abnormal relaxation pattern. There is no ventricular septal defect visualized. RIGHT VENTRICLE The right ventricle is normal size. The right ventricular systolic function is normal. ATRIA The left atrium is mildly dilated. The right atrium size is normal. AORTIC VALVE The aortic valve is mildly sclerotic. The aortic valve is trileaflet. There is trace aortic regurgitation. There is no aortic valvular stenosis. MITRAL VALVE The mitral valve is normal in structure. There is no evidence of mitral valve prolapse. There is no mitral valve regurgitation noted. TRICUSPID VALVE The tricuspid valve is normal in structure. There is trace tricuspid regurgitation. There is no pulmonary hypertension. PULMONIC VALVE The pulmonary valve is normal in structure. There is no pulmonic valvular regurgitation. GREAT VESSELS The aortic root is mildly enlarged.3.9 The ascending aorta is normal in size. The IVC is normal in size and collapses >50% with inspiration. PERICARDIAL EFFUSION There is a small-moderate circumferential pericardial effusion. There is an evidence of diastolic compression of the right atrium pericardial effusion. There is moderate right pleural effusion. <Conclusion> There is mild concentric left ventricular hypertrophy. Left ventricle systolic function is normal. The Ejection Fraction is 65-70%. Transmitral Doppler flow pattern is Grade I-abnormal relaxation pattern. There is an evidence of diastolic compression of the right atrium pericardial effusion.
--- NOTE | 2017-09-23 13:04 | CP.PCM.PN ---
Subjective - Date & Time of Evaluation Date of Evaluation: 09/23/17 Time of Evaluation: 12:59 - Subjective Subjective: Thoracic Surgery Progress note. Dr. Burton Pt seen and examined at bedside. He states that his SOB is improving. He denies any new complaints. He denies any F/C. No N/V/D. Objective - Vital Signs/Intake and Output Vital Signs (last 24 hours): Temp Pulse Resp BP Pulse Ox 98.7 F 88 18 119/84 100 09/23/17 08:00 09/23/17 08:00 09/23/17 08:00 09/23/17 08:00 09/23/17 08:00 - Medications Medications: Current Medications Famotidine (Pepcid) 20 mg PO BID [facility] Last Admin: 09/23/17 12:03 Dose: Not Given Heparin Sodium (Porcine) (Heparin) 5,000 units SC Q8 [facility] Last Admin: 09/22/17 21:15 Dose: 5,000 units Azithromycin 500 mg/ Sodium (Chloride) 250 mls @ 250 mls/hr IVPB DAILY [facility] Last Admin: 09/22/17 10:55 Dose: 250 mls/hr Ceftriaxone Sodium 1 gm/ (Sodium Chloride) 100 mls @ 100 mls/hr IVPB DAILY [facility] Last Admin: 09/22/17 09:41 Dose: 100 mls/hr Levothyroxine Sodium (Synthroid) 25 mcg PO DAILY@0630 [facility] Last Admin: 09/23/17 05:30 Dose: 25 mcg Ondansetron HCl (Zofran Inj) 4 mg IVP Q6 PRN PRN Reason: Nausea/Vomiting - Labs Labs: 09/23/17 06:00 09/23/17 06:00 PT 14.0 SECONDS (9.7-12.2) H 09/20/17 18:45 INR 1.2 09/20/17 18:45 APTT 33 SECONDS (21-34) 09/20/17 18:45 - Constitutional Appears: Well, Non-toxic, No Acute Distress - Head Exam Head Exam: ATRAUMATIC, NORMAL INSPECTION, NORMOCEPHALIC - Eye Exam Eye Exam: EOMI - ENT Exam ENT Exam: Mucous Membranes Moist - Respiratory Exam Respiratory Exam: absent: Accessory Muscle Use, Respiratory Distress Additional comments: decreased breath sounds Right side. - GI/Abdominal Exam GI & Abdominal Exam: Soft. absent: Distended, Firm, Guarding, Rigid, Tenderness - Extremities Exam Extremities Exam: Normal Inspection. absent: Calf Tenderness - Neurological Exam Neurological Exam: Alert, Awake, Oriented x3 - Psychiatric Exam Psychiatric exam: Normal Affect, Normal Mood - Skin Skin Exam: Dry, Intact, Normal Color, Warm Assessment and Plan - Assessment and Plan (Free Text) Assessment: 57yo M with Large Right sided pleural effusion and Right middle lung mass - Patient is s/p Thoracentesis by IR today morning. - f/u pleural fluid analysis - recommend f/u with IR for possible CT-guided biopsy of lung/mediastinal mass - Thoracic surgery team will sign-off, please reconsult as necessary. Further recs as per Dr. Josephine Zuniga PGY1 surgery pager: [phone]
--- NOTE | 2017-09-23 13:54 | VASCLAB ---
PROCEDURE: Right Upper Extremity Venous Duplex Exam HISTORY: Leg pain PRIORS: None. TECHNIQUE: Right upper extremity, internal jugular, subclavian, axillary, brachial, ulnar, radial, basilic and upper cephalic veins were evaluated. Flow was assessed with color Doppler, compressibility, assessment of phasic flow and augmentation response. Report prepared by CHESTER Arguelles FINDINGS: RIGHT: 1. Internal Jugular: 1.1. Compressibility - Fully compressible: Thrombus - None : Flow - Phasic: Augmentation -Normal: Reflux - None. 2. Subclavian: 2.1. Compressibility - Fully compressible: Thrombus - None : Flow - Phasic: Augmentation -Normal: Reflux - None. 3. Axillary: 3.1. Compressibility - Fully compressible: Thrombus - None : Flow - Phasic: Augmentation -Normal: Reflux - None. 4. Brachial: 4.1. Compressibility - Fully compressible: Thrombus - None: Flow - Phasic: Augmentation -Normal: Reflux - None. 5. Ulnar: 5.1. Compressibility - Fully compressible: Thrombus - None: Flow - Phasic: Augmentation -Normal: Reflux - None. 6. Radial: 6.1. Compressibility - Fully compressible: Thrombus - None: Flow - Phasic: Augmentation - Normal: Reflux - None. 7. Cephalic: 7.1. Compressibility - Fully compressible: Thrombus - None: Flow - Phasic: Augmentation -Normal: Reflux - None. 8. Basilic: 8.1. Compressibility - Fully compressible: Thrombus - None: Flow - Phasic: Augmentation -Normal: Reflux - None. OTHER FINDINGS: Right: None. IMPRESSION: Right: No evidence of vein thrombosis of the right upper extremity with excellent venous flow. Normal valve function noted of the right side. Normal venous flow noted in the left internal jugular and left subclavian veins.
[2017-09-23] MEDS: Azithromycin 500 MG in Sodium Chloride 0.9% 250 ML IVPB SCH (14:00)
--- NOTE | 2017-09-23 19:15 | CARD ---
APPROVED REPORT EKG Measurement Heart [id number] <Conclusion> Sinus tachycardia Right superior axis deviation Cannot rule out Anterior infarct, age undetermined Abnormal ECG
[2017-09-24] MEDS: Levothyroxine 25 MCG TAB PO SCH (06:09)
[2017-09-24 06:30] LABS: BASO # 0.1 K/uL (0.0-0.2); BASO % 0.9 % (0.0-2.0); EOS # 0.3 K/uL (0.0-0.7); EOS % 2.2 % (0.0-4.0); HEMATOCRIT 30.3 % (35.0-51.0); LYMPH # 1.6 K/uL (1.0-4.3); LYMPH % 13.4 % (20.0-40.0); MEAN CELL VOLUME 88.3 fL (80.0-94.0); MEAN CORPUSCULAR HEMOGLOBIN 28.5 pg (27.0-31.0); MEAN CORPUSCULAR HGB CONC 32.3 g/dL (33.0-37.0); MEAN PLATELET VOLUME 8.4 fL (7.2-11.7); MONO # 0.9 K/uL (0.0-0.8); MONO % 7.9 % (0.0-10.0)
[2017-09-24 06:56] LABS: ALB/GLOB RATIO 0.7 (1.0-2.1); ALKALINE PHOSPHATASE 135 U/L (38-126); ALT/SGPT 43 U/L (21-72); AST/SGOT 33 U/L (17-59); BILIRUBIN,TOTAL 0.4 mg/dL (0.2-1.3); BLOOD UREA NITROGEN 11 mg/dL (9-20); CALCIUM 7.8 mg/dl (8.6-10.4); CARBON DIOXIDE 32 mmol/L (22-30); CHLORIDE 99 mmol/L (98-107); GFR AFRICAN-AMERICAN > 60; GLUCOSE,RANDOM 180 mg/dL (75-110); POTASSIUM 4.3 mmol/L (3.6-5.2); SODIUM 137 mmol/L (132-148); TOTAL PROTEIN 6.5 g/dL (6.3-8.3)
--- NOTE | 2017-09-24 07:10 | CP.PCM.PN ---
Subjective - Date & Time of Evaluation Date of Evaluation: 09/24/17 Time of Evaluation: 07:08 - Subjective Subjective: WILL DICTATE LUNG MASS , BONE MET AWAIT TISSUE DIAGNOSIS WILL FOLLOW Objective - Vital Signs/Intake and Output Vital Signs (last 24 hours): Temp Pulse Resp BP Pulse Ox 98.2 F 113 H 20 97/66 L 99 09/24/17 04:48 09/24/17 04:48 09/24/17 04:48 09/24/17 04:48 09/24/17 04:48 Intake and Output: 09/24/17 09/24/17 06:59 18:59 Intake Total 240 Balance 240 - Medications Medications: Current Medications Famotidine (Pepcid) 20 mg PO BID [facility] Last Admin: 09/23/17 17:47 Dose: 20 mg Heparin Sodium (Porcine) (Heparin) 5,000 units SC Q8 [facility] Last Admin: 09/24/17 06:08 Dose: 5,000 units Azithromycin 500 mg/ Sodium (Chloride) 250 mls @ 250 mls/hr IVPB DAILY [facility] Last Admin: 09/23/17 14:00 Dose: 250 mls/hr Ceftriaxone Sodium 1 gm/ (Sodium Chloride) 100 mls @ 100 mls/hr IVPB DAILY [facility] Last Admin: 09/23/17 14:00 Dose: 100 mls/hr Levothyroxine Sodium (Synthroid) 25 mcg PO DAILY@0630 [facility] Last Admin: 09/24/17 06:09 Dose: 25 mcg Ondansetron HCl (Zofran Inj) 4 mg IVP Q6 PRN PRN Reason: Nausea/Vomiting Pneumococcal Polyvalent Vaccine (Pneumovax 23 Vaccine) 0.5 ml IM .ONCE ONE Stop: 09/26/17 10:01 - Labs Labs: 09/24/17 06:18 09/24/17 06:18 PT 14.0 SECONDS (9.7-12.2) H 09/20/17 18:45 INR 1.2 09/20/17 18:45 APTT 33 SECONDS (21-34) 09/20/17 18:45
--- NOTE | 2017-09-24 09:50 | CP.PCM.PN ---
<Alyce Baez - Last Filed: 09/24/17 10:26> Subjective - Date & Time of Evaluation Date of Evaluation: 09/24/17 Time of Evaluation: 09:50 - Subjective Subjective: Medicine Progress Note for Dr. Khan Patient was seen and examined at bedside in no acute distress. Patient was laying comfortably in bed. Patient reports feeling well, breathing is better today, and his pain in his arm/shoulder has improved. Patient reports improved appetite and tolerating diet. Patient states he has some tenderness at the site of thoracentesis. Patient denies having chest pain, abdominal pain, nausea, vomiting, fevers, leg pain/swelling, and headaches. Objective - Vital Signs/Intake and Output Vital Signs (last 24 hours): Temp Pulse Resp BP Pulse Ox 98.1 F 114 H 18 104/75 98 09/24/17 08:01 09/24/17 08:01 09/24/17 08:01 09/24/17 08:01 09/24/17 08:01 Intake and Output: 09/24/17 09/24/17 06:59 18:59 Intake Total 240 Balance 240 - Medications Medications: Current Medications Famotidine (Pepcid) 20 mg PO BID [facility] Last Admin: 09/23/17 17:47 Dose: 20 mg Heparin Sodium (Porcine) (Heparin) 5,000 units SC Q8 [facility] Last Admin: 09/24/17 06:08 Dose: 5,000 units Azithromycin 500 mg/ Sodium (Chloride) 250 mls @ 250 mls/hr IVPB DAILY [facility] Last Admin: 09/23/17 14:00 Dose: 250 mls/hr Ceftriaxone Sodium 1 gm/ (Sodium Chloride) 100 mls @ 100 mls/hr IVPB DAILY [facility] Last Admin: 09/23/17 14:00 Dose: 100 mls/hr Levothyroxine Sodium (Synthroid) 25 mcg PO DAILY@0630 [facility] Last Admin: 09/24/17 06:09 Dose: 25 mcg Ondansetron HCl (Zofran Inj) 4 mg IVP Q6 PRN PRN Reason: Nausea/Vomiting Pneumococcal Polyvalent Vaccine (Pneumovax 23 Vaccine) 0.5 ml IM .ONCE ONE Stop: 09/26/17 10:01 - Labs Labs: 09/24/17 06:18 09/24/17 06:18 PT 14.0 SECONDS (9.7-12.2) H 09/20/17 18:45 INR 1.2 09/20/17 18:45 APTT 33 SECONDS (21-34) 09/20/17 18:45 - Additional Findings Additional findings: - Constitutional Appears: Non-toxic, No Acute Distress - Head Exam Head Exam: NORMAL INSPECTION - Eye Exam Eye Exam: EOMI. absent: scleral icterus - ENT Exam ENT Exam: Mucous Membranes Moist - Respiratory Exam Respiratory Exam: Decreased Breath Sounds (R>L), s/p thoracentesis- dressing clean, dry, intact. absent: Accessory Muscle Use, Respiratory Distress, Stridor - Cardiovascular Exam Cardiovascular Exam: REGULAR RHYTHM, +S1, +S2. absent: Gallop, Rubs, Murmur - GI/Abdominal Exam GI & Abdominal Exam: Soft, Normal Bowel Sounds. absent: Tenderness - Extremities Exam Extremities Exam: absent: Pedal Edema - Neurological Exam Neurological Exam: Alert, Awake, Oriented x3 Neuro motor strength exam: Left Upper Extremity: 5, Right Upper Extremity: 5 - Psychiatric Exam Psychiatric exam: Normal Affect, Normal Mood - Skin Skin Exam: Normal Color, Warm Assessment and Plan (1) Pleural effusion on right Status: Acute (2) Lung mass Status: Acute (3) Right upper limb pain Status: Acute (4) Hypothyroidism Status: Acute (5) Prophylactic measure Status: Acute - Assessment and Plan (Free Text) Plan: Pleural effusion on right Assessment and Plan: * Chest Xray (09/20): large right sided pleural effusion; pending official read * Chest CT (09/20): severe right pleural effusion with associated ateletasis/ lung collapse; evidence of underlying large heterogenous mass involving medial right lung field and mediastinum ([id number]); significant mediastinal shift to the left; mild pericardial effusion; multiple lytic foci in vertebral bodies concerning for metastatic disease. * O2 prn via nasal cannula * IR consulted for pleural fluid analysis, help appreciated. * Removed 3L of pleural fluid * Fluid analysis: WBC 480, RBC 9630, Total cell count 100, Neutrophil 4, Lymphocyte 93, [place]/Macrophage 3; fluid diff pathology- atypical cells singly and in cluster; suspicious for malignancy * Pulm consulted - Dr. Caicedo - help appreciated * Dr. Caicedo planned for thoracentesis on Saturday, 09/21; however, patient was nervous and wanted his to be there when it is done. Thoracentesis was not performed over weekend. * Thoracic surgery consulted - Dr. Alaniz - f/u recs in case patient needs chest tube * as per surgery team, no surgery at this time. Status: Acute Lung mass Assessment and Plan: * Chest CT (09/20): severe right pleural effusion with associated ateletasis/ lung collapse; evidence of underlying large heterogenous mass involving medial right lung field and mediastinum ([id number]); significant mediastinal shift to the left; mild pericardial effusion; multiple lytic foci in vertebral bodies concerning for metastatic disease * Head CT: no evidence of acute intracranial hemorrhage, mass lesion, mass effect or midline shift * Thoracic spine CT: multiple lytic lesions in thoracic spine consistent with metastasis * Cervical spine CT: no evidence of destructive bony lesion; small to moderate size osteophyte disc bulge complex at C5-6 associated with mild spinal and neural foraminal narrowing; large right pleural effusion. * Heme/Onc consulted, Dr. Sultana, help appreciated. * Pulm consulted - Dr. Caicedo - help appreciated * Planning for bronchoscopy and biopsy * Brain MRI with contrast: ordered, f/u results * Will order Abdomen/Pelvis CT with contract tomorrow to r/o mets Status: Acute Right upper limb pain/numbness Assessment and Plan: Patient complains of right upper extremity and right back pain and numbness * Likely secondary to pleural effusion and right lung mass * Right Upper Extremity Doppler: f/u results * Possibly secondary to nerve infringement, will get MRI once pleural effusion is resolved * Neurology consulted, Dr. Bowden, help appreciated * Head CT: no evidence of acute intracranial hemorrhage, mass lesion, mass effect or midline shift * Thoracic spine CT: multiple lytic lesions in thoracic spine consistent with metastasis * Cervical spine CT: no evidence of destructive bony lesion; small to moderate size osteophyte disc bulge complex at C5-6 associated with mild spinal and neural foraminal narrowing; large right pleural effusion Status: Acute Hypothyroidism Assessment and Plan: Continue home medication: Levothyroxine 25mcg PO daily. * TSH: 2.09 * T4: Status: Acute Prophylactic measure Assessment and Plan: Heparin 5,000 SC Q8h Pepcid 20mg PO BID Regular Diet O2 via nasal cannula prn Status: Acute <Nathan Khan H - Last Filed: 09/24/17 13:20> Objective - Vital Signs/Intake and Output Vital Signs (last 24 hours): Temp Pulse Resp BP Pulse Ox 98.1 F 114 H 18 104/75 98 09/24/17 08:01 09/24/17 08:01 09/24/17 08:01 09/24/17 08:01 09/24/17 08:01 Intake and Output: 09/24/17 09/24/17 06:59 18:59 Intake Total 240 Balance 240 - Medications Medications: Current Medications Famotidine (Pepcid) 20 mg PO BID [facility] Last Admin: 09/24/17 10:36 Dose: 20 mg Heparin Sodium (Porcine) (Heparin) 5,000 units SC Q8 [facility] Last Admin: 09/24/17 06:08 Dose: 5,000 units Azithromycin 500 mg/ Sodium (Chloride) 250 mls @ 250 mls/hr IVPB DAILY [facility] Last Admin: 09/23/17 14:00 Dose: 250 mls/hr Ceftriaxone Sodium 1 gm/ (Sodium Chloride) 100 mls @ 100 mls/hr IVPB DAILY [facility] Last Admin: 09/24/17 10:36 Dose: 100 mls/hr Levothyroxine Sodium (Synthroid) 25 mcg PO DAILY@0630 [facility] Last Admin: 09/24/17 06:09 Dose: 25 mcg Ondansetron HCl (Zofran Inj) 4 mg IVP Q6 PRN PRN Reason: Nausea/Vomiting Pneumococcal Polyvalent Vaccine (Pneumovax 23 Vaccine) 0.5 ml IM .ONCE ONE Stop: 09/26/17 10:01 - Labs Labs: 09/24/17 06:18 09/24/17 06:18 PT 14.0 SECONDS (9.7-12.2) H 09/20/17 18:45 INR 1.2 09/20/17 18:45 APTT 33 SECONDS (21-34) 09/20/17 18:45 Attending/Attestation - Attestation I have personally seen and examined this patient.: Yes I have fully participated in the care of the patient.: Yes I have reviewed all pertinent clinical information, including history, physical exam and plan: Yes Notes (Text): 09/24/17 13:18 Medical attending: Patient was seen and examined by me as well, agree with the above note by medical technologist microbiology. The patient's family member was present in the room, it was his son the patient requested that his son not be told this away very politely asked the son to leave the room. The patient explained that later on he'll tell his son when he feels ready to. As mentioned previously the patient is status post 3 L from a thoracentesis. On physical exam there is still decreased breath sounds and dullness to percussion over the left lung area. The fluid report suggested there is some type of malignancy present. From what I understand there are some plans for possible bronchoscopy and biopsy to be done for further diagnosis. We spoke with the patient's over the phone with the patient as well. So she is also aware. thank you Nathan Khan
[2017-09-24] MEDS: Azithromycin 500 MG in Sodium Chloride 0.9% 250 ML IVPB SCH (10:00)
[2017-09-24] MEDS ORDERED: Gadodiamide 287 MG/ML VIAL (15ML) IV ONE (12:15)
--- NOTE | 2017-09-24 12:33 | CP.PCM.PN ---
Subjective - Date & Time of Evaluation Date of Evaluation: 09/24/17 Time of Evaluation: 12:45 - Subjective Subjective: Patient seen and examined at bedside. Patient sitting comfortably on NC. Patient denies any SOB at rest but when ambulating to bathroom he started to feel SOB and weak. Patient denies any fevers, chills, chest pain, n/v, diarrhea , constipation, abdominal pain or dysuria. Objective - Vital Signs/Intake and Output Vital Signs (last 24 hours): Temp Pulse Resp BP Pulse Ox 98.1 F 114 H 18 104/75 98 09/24/17 08:01 09/24/17 08:01 09/24/17 08:01 09/24/17 08:01 09/24/17 08:01 Intake and Output: 09/24/17 09/24/17 06:59 18:59 Intake Total 240 Balance 240 - Medications Medications: Current Medications Famotidine (Pepcid) 20 mg PO BID [facility] Last Admin: 09/24/17 10:36 Dose: 20 mg Heparin Sodium (Porcine) (Heparin) 5,000 units SC Q8 [facility] Last Admin: 09/24/17 06:08 Dose: 5,000 units Azithromycin 500 mg/ Sodium (Chloride) 250 mls @ 250 mls/hr IVPB DAILY [facility] Last Admin: 09/23/17 14:00 Dose: 250 mls/hr Ceftriaxone Sodium 1 gm/ (Sodium Chloride) 100 mls @ 100 mls/hr IVPB DAILY [facility] Last Admin: 09/24/17 10:36 Dose: 100 mls/hr Levothyroxine Sodium (Synthroid) 25 mcg PO DAILY@0630 [facility] Last Admin: 09/24/17 06:09 Dose: 25 mcg Ondansetron HCl (Zofran Inj) 4 mg IVP Q6 PRN PRN Reason: Nausea/Vomiting Pneumococcal Polyvalent Vaccine (Pneumovax 23 Vaccine) 0.5 ml IM .ONCE ONE Stop: 09/26/17 10:01 - Labs Labs: 09/24/17 06:18 09/24/17 06:18 PT 14.0 SECONDS (9.7-12.2) H 09/20/17 18:45 INR 1.2 09/20/17 18:45 APTT 33 SECONDS (21-34) 09/20/17 18:45 - Head Exam Head Exam: ATRAUMATIC, NORMOCEPHALIC - Eye Exam Eye Exam: Normal appearance - ENT Exam ENT Exam: Mucous Membranes Moist - Neck Exam Neck Exam: Normal Inspection - Respiratory Exam Respiratory Exam: Decreased Breath Sounds - Cardiovascular Exam Cardiovascular Exam: REGULAR RHYTHM - GI/Abdominal Exam GI & Abdominal Exam: Soft, Normal Bowel Sounds Assessment and Plan (1) Pleural effusion on right Assessment & Plan: status post thoracentesis and 3 L of fluid removed Cytology positive for malignant cells Status: Acute (2) Lung mass Assessment & Plan: for bronchoscopy and biopsy tomorrow Status: Acute
--- NOTE | 2017-09-24 14:19 | MRI ---
PROCEDURE: MRI BRAIN WITH AND WITHOUT CONTRAST HISTORY: r/o mets COMPARISON: Noncontrast head CT from 09/21/2017 TECHNIQUE: Multiplanar, multisequence MR images of the brain were obtained with and without intravenous contrast enhancement. 12 mL Omniscan was injected intravenously. FINDINGS: HEMORRHAGE: None DWI: No evidence of an acute or early subacute infarction. BRAIN PARENCHYMA: Reyes-white matter differentiation is preserved. There is no mass, mass effect or abnormal extra-axial fluid collection. There is no territorial infarction. The midline sagittal structures are normal. ENHANCEMENT: No abnormal intracranial enhancement. VENTRICLES: There is moderate global parenchymal volume loss and proportionate enlargement of the ventricles and cortical sulci, advanced for the patient's age. CRANIUM: There is normal bone marrow signal pattern. ORBITS: Grossly unremarkable. PARANASAL SINUSES/MASTOIDS: Predominantly clear. VASCULAR SYSTEM: There are normal signal voids in the larger intracranial arteries. OTHER FINDINGS: None . IMPRESSION: No acute intracranial abnormality. Specifically, no evidence for intracranial metastasis. Moderate global parenchymal volume loss, advanced for the patient's age.
[2017-09-25] MEDS: Levothyroxine 25 MCG TAB PO SCH (05:34)
[2017-09-25 06:58] LABS: BASO # 0.1 K/uL (0.0-0.2); EOS # 0.3 K/uL (0.0-0.7); EOS % 2.2 % (0.0-4.0); HEMATOCRIT 31.4 % (35.0-51.0); LYMPH # 1.7 K/uL (1.0-4.3); LYMPH % 14.9 % (20.0-40.0); MEAN CELL VOLUME 87.8 fL (80.0-94.0); MEAN PLATELET VOLUME 8.3 fL (7.2-11.7); MONO # 0.9 K/uL (0.0-0.8); MONO % 7.5 % (0.0-10.0); RED CELL DISTRIBUTION WIDTH 12.9 % (11.5-14.5); WHITE BLOOD COUNT 11.4 K/uL (4.8-10.8)
--- NOTE | 2017-09-25 06:59 | CP.PCM.PN ---
<Alyce Baez - Last Filed: 09/25/17 10:25> Subjective - Date & Time of Evaluation Date of Evaluation: 09/25/17 Time of Evaluation: 06:59 - Subjective Subjective: Medicine Progress Note for Dr. Khan Patient was seen and examined at bedside in no acute distress. Patient was laying comfortably in bed. Patient reports feeling well, breathing is better today. Patient states he has some tenderness in his back after at the site of thoracentesis. Patient states he is lying on his back and on the right side, which he thinks may be causing the pain/tenderness. He also reports having mild leg pain, "nerve pain", bilaterally. Patient denies having chest pain, abdominal pain, nausea, vomiting, fevers, and headaches. Objective - Vital Signs/Intake and Output Vital Signs (last 24 hours): Temp Pulse Resp BP Pulse Ox 99.4 F 115 H 20 105/73 99 09/24/17 23:10 09/25/17 04:00 09/24/17 23:10 09/24/17 23:10 09/24/17 23:10 Intake and Output: 09/24/17 09/25/17 18:59 06:59 Intake Total 350 300 Balance 350 300 - Medications Medications: Current Medications Famotidine (Pepcid) 20 mg PO BID [facility] Last Admin: 09/24/17 17:32 Dose: 20 mg Heparin Sodium (Porcine) (Heparin) 5,000 units SC Q8 [facility] Last Admin: 09/24/17 22:29 Dose: 5,000 units Azithromycin 500 mg/ Sodium (Chloride) 250 mls @ 250 mls/hr IVPB DAILY [facility] Last Admin: 09/24/17 10:00 Dose: 250 mls/hr Ceftriaxone Sodium 1 gm/ (Sodium Chloride) 100 mls @ 100 mls/hr IVPB DAILY [facility] Last Admin: 09/24/17 10:36 Dose: 100 mls/hr Levothyroxine Sodium (Synthroid) 25 mcg PO DAILY@0630 [facility] Last Admin: 09/25/17 05:34 Dose: Not Given Ondansetron HCl (Zofran Inj) 4 mg IVP Q6 PRN PRN Reason: Nausea/Vomiting Last Admin: 09/24/17 18:03 Dose: 4 mg Pneumococcal Polyvalent Vaccine (Pneumovax 23 Vaccine) 0.5 ml IM .ONCE ONE Stop: 12/14/17 10:01 - Labs Labs: 09/24/17 06:18 09/24/17 06:18 PT 14.0 SECONDS (9.7-12.2) H 09/20/17 18:45 INR 1.2 09/20/17 18:45 APTT 33 SECONDS (21-34) 09/20/17 18:45 - Additional Findings Additional findings: - Additional Findings Additional findings: - Constitutional Appears: Non-toxic, No Acute Distress - Head Exam Head Exam: NORMAL INSPECTION - Eye Exam Eye Exam: EOMI. absent: scleral icterus - ENT Exam ENT Exam: Mucous Membranes Moist - Respiratory Exam Respiratory Exam: Decreased Breath Sounds (R>L), s/p thoracentesis- dressing clean, dry, intact. Dullness to percussion on the right. absent: Accessory Muscle Use, Respiratory Distress, Stridor - Cardiovascular Exam Cardiovascular Exam: REGULAR RHYTHM, +S1, +S2. absent: Gallop, Rubs, Murmur - GI/Abdominal Exam GI & Abdominal Exam: Soft, Normal Bowel Sounds. absent: Tenderness - Extremities Exam Extremities Exam: absent: Pedal Edema, calf tenderness - Neurological Exam Neurological Exam: Alert, Awake, Oriented x3 Neuro motor strength exam: Left Upper Extremity: 5, Right Upper Extremity: 5 - Psychiatric Exam Psychiatric exam: Normal Affect, Normal Mood - Skin Skin Exam: Normal Color, Warm Assessment and Plan (1) Pleural effusion on right Status: Acute (2) Lung mass Status: Acute (3) Right upper limb pain Status: Acute (4) Hypothyroidism Status: Acute (5) Prophylactic measure Status: Acute - Assessment and Plan (Free Text) Assessment: Pleural effusion on right Assessment and Plan: * Chest Xray (09/20): large right sided pleural effusion; pending official read * Chest CT (09/20): severe right pleural effusion with associated ateletasis/ lung collapse; evidence of underlying large heterogenous mass involving medial right lung field and mediastinum ([id number]); significant mediastinal shift to the left; mild pericardial effusion; multiple lytic foci in vertebral bodies concerning for metastatic disease. * O2 prn via nasal cannula * IR consulted for pleural fluid analysis, help appreciated. * Removed 3L of pleural fluid * Fluid analysis: WBC 480, RBC 9630, Total cell count 100, Neutrophil 4, Lymphocyte 93, [place]/Macrophage 3; fluid diff pathology- atypical cells singly and in cluster; suspicious for malignancy * Pulm consulted - Dr. Caicedo - help appreciated * Dr. Caicedo planned for thoracentesis on Saturday, 09/21; however, patient was nervous and wanted his to be there when it is done. Thoracentesis was not performed over weekend. * Thoracic surgery consulted - Dr. Alaniz - f/u recs in case patient needs chest tube * as per surgery team, no surgery at this time. Status: Acute Lung mass Assessment and Plan: * Chest CT (09/20): severe right pleural effusion with associated ateletasis/ lung collapse; evidence of underlying large heterogenous mass involving medial right lung field and mediastinum ([id number]); significant mediastinal shift to the left; mild pericardial effusion; multiple lytic foci in vertebral bodies concerning for metastatic disease * Head CT: no evidence of acute intracranial hemorrhage, mass lesion, mass effect or midline shift * Thoracic spine CT: multiple lytic lesions in thoracic spine consistent with metastasis * Cervical spine CT: no evidence of destructive bony lesion; small to moderate size osteophyte disc bulge complex at C5-6 associated with mild spinal and neural foraminal narrowing; large right pleural effusion. * Heme/Onc consulted, Dr. Sultana, help appreciated. * Pulm consulted - Dr. Caicedo - help appreciated * Patient went for bronchoscopy and biopsy today- f/u results * Brain MRI with contrast: no evidence of metastasis * Abdomen/Pelvis CT w/contrast to r/o mets: f/u results Status: Acute Right upper limb pain/numbness Assessment and Plan: Patient complains of right upper extremity and right back pain and numbness * Likely secondary to pleural effusion and right lung mass * Right Upper Extremity Doppler: f/u results * Possibly secondary to nerve infringement, will get MRI once pleural effusion is resolved * Neurology consulted, Dr. Bowden, help appreciated * Head CT: no evidence of acute intracranial hemorrhage, mass lesion, mass effect or midline shift * Thoracic spine CT: multiple lytic lesions in thoracic spine consistent with metastasis * Cervical spine CT: no evidence of destructive bony lesion; small to moderate size osteophyte disc bulge complex at C5-6 associated with mild spinal and neural foraminal narrowing; large right pleural effusion Status: Acute Hypothyroidism Assessment and Plan: Continue home medication: Levothyroxine 25mcg PO daily. * TSH: 2.09 * T4: 1.49 Status: Acute Prophylactic measure Assessment and Plan: Heparin 5,000 SC Q8h- held for bronchoscopy Pepcid 20mg PO BID Regular Diet O2 via nasal cannula prn Status: Acute <Nathan Khan H - Last Filed: 09/25/17 13:01> Objective - Vital Signs/Intake and Output Vital Signs (last 24 hours): Temp Pulse Resp BP Pulse Ox 98.9 F 114 H 19 105/71 100 09/25/17 10:30 09/25/17 12:04 09/25/17 10:30 09/25/17 10:30 09/25/17 10:30 Intake and Output: 09/25/17 09/25/17 06:59 18:59 Intake Total 300 Balance 300 - Medications Medications: Current Medications Azithromycin (Zithromax) 500 mg PO DAILY [facility] Famotidine (Pepcid) 20 mg PO BID [facility] Last Admin: 09/25/17 08:59 Dose: Not Given Heparin Sodium (Porcine) (Heparin) 5,000 units SC Q8 [facility] Last Admin: 09/24/17 22:29 Dose: 5,000 units Ceftriaxone Sodium 1 gm/ (Sodium Chloride) 100 mls @ 100 mls/hr IVPB DAILY [facility] Last Admin: 09/25/17 11:59 Dose: 100 mls/hr Levothyroxine Sodium (Synthroid) 25 mcg PO DAILY@0630 [facility] Last Admin: 09/25/17 05:34 Dose: Not Given Ondansetron HCl (Zofran Inj) 4 mg IVP Q6 PRN PRN Reason: Nausea/Vomiting Last Admin: 09/24/17 18:03 Dose: 4 mg Pneumococcal Polyvalent Vaccine (Pneumovax 23 Vaccine) 0.5 ml IM .ONCE ONE Stop: 09/26/17 10:01 - Labs Labs: 09/25/17 06:48 09/25/17 06:48 PT 13.3 SECONDS (9.7-12.2) H 09/25/17 06:48 INR 1.2 09/25/17 06:48 APTT 33 SECONDS (21-34) 09/25/17 06:48 Attending/Attestation - Attestation I have personally seen and examined this patient.: Yes I have fully participated in the care of the patient.: Yes I have reviewed all pertinent clinical information, including history, physical exam and plan: Yes Notes (Text): 09/25/17 13:01 Medical attending: Patient was seen and examined by me, agree with the above note by biomedical electronics technician. This morning the patient was not in the room, will have to come back later on. As mentioned previously he is undergoing a bronchoscopy, with hopefully transbronchial biopsy to be done. He has is status post 3 L from a thoracentesis. The fluid analysis and cytology from this thoracentesis is suggesting some sort of malignancy His family was present yesterday but he only wanted his and his to know, so we've been very careful to not tell his extended family. He says that he'll tell them when he feels most comfortable. I also spoke with the patient's primary care physician and informed him as well. I also spoke with hematology oncology this morning as well thank you very much, Nathan Khan
[2017-09-25 07:10] LABS: INR 1.2
[2017-09-25 07:35] LABS: ALKALINE PHOSPHATASE 152 U/L (38-126); ALT/SGPT 40 U/L (21-72); AST/SGOT 38 U/L (17-59); BILIRUBIN,TOTAL 0.6 mg/dL (0.2-1.3); BLOOD UREA NITROGEN 10 mg/dL (9-20); CALCIUM 8.3 mg/dl (8.6-10.4); CARBON DIOXIDE 32 mmol/L (22-30); CHLORIDE 99 mmol/L (98-107); GFR AFRICAN-AMERICAN > 60; GLUCOSE,RANDOM 107 mg/dL (75-110); POTASSIUM 4.2 mmol/L (3.6-5.2); SODIUM 136 mmol/L (132-148); TOTAL PROTEIN 5.8 g/dL (6.3-8.3)
[2017-09-25] MEDS ORDERED: Sodium Chloride 0.9% 0 ML IV ONE (07:35)
[2017-09-25] MEDS ORDERED: EPINEPHrine 1 mg/ml (1:1000) Inj ONE (07:36)
[2017-09-25] MEDS ORDERED: Lidocaine 2% Inj (20ml) ONE (07:36)
[2017-09-25 07:52] LABS: ALB/GLOB RATIO 0.9 (1.0-2.1)
[2017-09-25] MEDS ORDERED: Lactated Ringer's 1,000 ML IV ONE ×2 (08:12→08:58)
[2017-09-25] MEDS ORDERED: Propofol 10 mg/ml Inj (20 ML) ONE (08:13)
[2017-09-25] MEDS ORDERED: Midazolam 2 MG/2 ML VIAL ONE (08:13)
[2017-09-25] MEDS: Azithromycin 500 MG in Sodium Chloride 0.9% 250 ML IVPB SCH ×2 (08:59→12:00)
--- NOTE | 2017-09-25 11:11 | CP.PCM.PN ---
Subjective - Date & Time of Evaluation Date of Evaluation: 09/25/17 Time of Evaluation: 11:06 - Subjective Subjective: Mr. Draper was seen and examined at the bedside. He is alert, oriented and states of just returned from procedure. He further claims of feeling tired. He denies any headache, dizziness, lightheadedness, nausea, or vomiting. He further states of his continuous back pain, but tolerable. There was no untoward events overnight. Objective - Vital Signs/Intake and Output Vital Signs (last 24 hours): Temp Pulse Resp BP Pulse Ox 98.9 F 114 H 19 105/71 100 09/25/17 10:30 09/25/17 10:30 09/25/17 10:30 09/25/17 10:30 09/25/17 10:30 Intake and Output: 09/25/17 09/25/17 06:59 18:59 Intake Total 300 Balance 300 - Medications Medications: Current Medications Famotidine (Pepcid) 20 mg PO BID [facility] Last Admin: 09/25/17 08:59 Dose: Not Given Heparin Sodium (Porcine) (Heparin) 5,000 units SC Q8 [facility] Last Admin: 09/24/17 22:29 Dose: 5,000 units Azithromycin 500 mg/ Sodium (Chloride) 250 mls @ 250 mls/hr IVPB DAILY [facility] Last Admin: 09/25/17 08:59 Dose: Not Given Ceftriaxone Sodium 1 gm/ (Sodium Chloride) 100 mls @ 100 mls/hr IVPB DAILY [facility] Last Admin: 09/25/17 08:59 Dose: Not Given Levothyroxine Sodium (Synthroid) 25 mcg PO DAILY@0630 [facility] Last Admin: 09/25/17 05:34 Dose: Not Given Morphine Sulfate (Morphine) 1 mg IVP Q10M PRN PRN Reason: Pain, moderate (4-7) Stop: 09/25/17 11:07 Ondansetron HCl (Zofran Inj) 4 mg IVP Q6 PRN PRN Reason: Nausea/Vomiting Last Admin: 09/24/17 18:03 Dose: 4 mg Pneumococcal Polyvalent Vaccine (Pneumovax 23 Vaccine) 0.5 ml IM .ONCE ONE Stop: 09/26/17 10:01 - Labs Labs: 09/25/17 06:48 09/25/17 06:48 PT 13.3 SECONDS (9.7-12.2) H 09/25/17 06:48 INR 1.2 09/25/17 06:48 APTT 33 SECONDS (21-34) 09/25/17 06:48 - Constitutional Appears: No Acute Distress - Head Exam Head Exam: ATRAUMATIC - Neurological Exam Neurological Exam: Alert, Awake, Oriented x3 Neuro motor strength exam: Left Upper Extremity: 3, Right Upper Extremity: 3, Left Lower Extremity: 3, Right Lower Extremity: 3 Additional comments: Neurological unchanged from previous examination. Assessment and Plan (1) Lung mass Assessment & Plan: Case discussed with Dr. Bowden, continue all current medical regimen. There is no new recommendation from neurology. Status: Acute
--- NOTE | 2017-09-25 12:31 | RAD ---
HISTORY: R/O PTX S/P BRONCH COMPARISON: Chest x-ray performed 09/23/17 TECHNIQUE: Chest, one view. FINDINGS: LUNGS: Near complete opacification of the right doug thorax with minimal aeration evident within the medial right upper lobe. No definite pneumothorax identified. CARDIOVASCULAR: Obscured. OSSEOUS STRUCTURES: No acute osseous abnormality is detected. VISUALIZED UPPER ABDOMEN: Unremarkable. OTHER FINDINGS: None. IMPRESSION: Near complete opacification of the right doug thorax with minimal aeration evident within the medial right upper lobe.
[2017-09-25] MEDS ORDERED: Iodixanol 320 mg/ml 150 ml Bottle IV ONE (12:54)
--- NOTE | 2017-09-25 12:57 | PN ---
DATE: The patient was seen originally on 09/21/2017 as a consultation when the patient came with shortness of breath and chest pain. The full consultation was dictated. The patient is seen today on 09/24/2017 for a followup. The HPI, chart notes, events, and input from other consultants reviewed, discussed, and confirmed with the patient and the medical team. SUBJECTIVE: Mr. Draper is a 57-year-old gentleman, who was admitted on 09/20/2017 with chest pain, shortness of breath, and not feeling well. The patient was found to be anemic and had a large right pleural effusion. About 3 liters of pleural fluid was drained by Dr. Ortiz and was sent to the cytology. The pathology and cytology are still pending. CT scan of the chest showed that the patient has a large 10 to 15 cm right lung mass and large right pleural effusion. The patient was also found to have bone metastasis on thoracic CT scan. His CT scan of the cervix did not show any evidence of metastasis. The patient has hemoglobin of 9.8 and the patient is anemic. Dr. Thom Caicedo is planning to do bronchoscopy and EBUS transthoracic biopsy. The patient is generally feeling better and clinically improving. He is feeling much better after a drainage of the right pleural fluid. The patient denies any headache or neurological symptoms. The patient denies any shortness of breath or palpitation. The patient does have some cough. The patient denies any nausea, vomiting, abdominal pain, fever, or diarrhea. The patient denies any back pain at this point. REVIEW OF SYSTEMS: As stated above. PHYSICAL EXAMINATION: GENERAL: The patient is ambulatory. VITAL SIGNS: Afebrile, pulse is 96 per minute, respirations 16 per minute. HEENT: Unremarkable, anicteric. NECK: Supple. No adenopathy. No JVD. CHEST: Bilateral air with some decreased breath sound on the right side. There are no rhonchi. ABDOMEN: Soft and nontender. Bowel sounds present. No palpable hepatosplenomegaly. EXTREMITIES: No clubbing. No cyanosis. No pedal edema. NEUROLOGIC: Alert, awake, oriented, and nonfocal. ASSESSMENT AND PLAN: Mr. Draper is a 57-year-old gentleman, who was admitted with chest pain and about 3 liters of pleural fluid was drained from the right side. The cytology is pending. This symptomatology and imaging findings most likely secondary to advanced lung cancer. The patient also has a bone metastasis on thoracic CT. I had a long discussion with the patient, his , and the medical team, and also Dr. Khan. I recommended tissue diagnosis with Dr. Caicedo during the bronchoscopy and transbronchial biopsy. I also recommended that the patient would get bisphosphonate treatment for his bone metastasis. Once we have a tissue diagnosis and pathology, we will make further recommendations about his possible lung cancer. The treatment options and different marker that has to be done on the lung cancer tissue was discussed in great detail with the patient. The patient and his understood issues well and will follow up as an outpatient. The patient was also seen today, 09/25/2017, and there is no much new changes in the patient status. We will continue to follow up the patient and will have further discussions after once we have a complete pathologic diagnosis. Alber Marley MD
--- NOTE | 2017-09-25 14:53 | PCM.SURG1 ---
Surgeon's Initial Post Op Note - Surgeon's Notes Surgeon: Sascha Metabolic Specialist: none Type of Anesthesia: IV Sedation Pre-Operative Diagnosis: right lung mass Operative Findings: complete obstruction of the bronchus intermedius by endobronchial lesion Post-Operative Diagnosis: endobronchial mass obstructing bronchus intermedius Operation Performed: multiple biopsies, brushing and washing off endobronchial lesion right bronchus intermedius Specimen/Specimens Removed: biopsy of endobronchial mass, brushing and washing Estimated Blood Loss: EBL {In ML}: 5 Blood Products Given: N/A Drains Used: No Drains Post-Op Condition: Good Date of Surgery/Procedure: 09/25/17 Time of Surgery/Procedure: 08:30
--- NOTE | 2017-09-25 14:57 | CP.PCM.PN ---
Subjective - Date & Time of Evaluation Date of Evaluation: 09/25/17 Time of Evaluation: 10:00 - Subjective Subjective: patient seen and examined Denies shortness of breath Afebrile No chest pain Status post bronchoscopy and biopsy Almost complete obstruction of the bronchus intermedius by endobronchial lesion Objective - Vital Signs/Intake and Output Vital Signs (last 24 hours): Temp Pulse Resp BP Pulse Ox 98.9 F 114 H 19 105/71 100 09/25/17 10:30 09/25/17 12:04 09/25/17 10:30 09/25/17 10:30 09/25/17 10:30 Intake and Output: 09/25/17 09/25/17 06:59 18:59 Intake Total 300 Balance 300 - Medications Medications: Current Medications Azithromycin (Zithromax) 500 mg PO DAILY [facility] Famotidine (Pepcid) 20 mg PO BID [facility] Last Admin: 09/25/17 08:59 Dose: Not Given Heparin Sodium (Porcine) (Heparin) 5,000 units SC Q8 [facility] Last Admin: 09/24/17 22:29 Dose: 5,000 units Ceftriaxone Sodium 1 gm/ (Sodium Chloride) 100 mls @ 100 mls/hr IVPB DAILY [facility] Last Admin: 09/25/17 11:59 Dose: 100 mls/hr Levothyroxine Sodium (Synthroid) 25 mcg PO DAILY@0630 [facility] Last Admin: 09/25/17 05:34 Dose: Not Given Ondansetron HCl (Zofran Inj) 4 mg IVP Q6 PRN PRN Reason: Nausea/Vomiting Last Admin: 09/24/17 18:03 Dose: 4 mg Pneumococcal Polyvalent Vaccine (Pneumovax 23 Vaccine) 0.5 ml IM .ONCE ONE Stop: 09/26/17 10:01 - Labs Labs: 09/25/17 06:48 09/25/17 06:48 PT 13.3 SECONDS (9.7-12.2) H 09/25/17 06:48 INR 1.2 09/25/17 06:48 APTT 33 SECONDS (21-34) 09/25/17 06:48 - Head Exam Head Exam: ATRAUMATIC, NORMOCEPHALIC - Eye Exam Eye Exam: Normal appearance - ENT Exam ENT Exam: Mucous Membranes Moist - Neck Exam Neck Exam: Normal Inspection - Respiratory Exam Respiratory Exam: Decreased Breath Sounds - Cardiovascular Exam Cardiovascular Exam: REGULAR RHYTHM - GI/Abdominal Exam GI & Abdominal Exam: Soft, Normal Bowel Sounds - Extremities Exam Extremities Exam: Full ROM, Normal Inspection - Neurological Exam Neurological Exam: Alert, Oriented x3 Assessment and Plan (1) Pleural effusion on right Status: Acute (2) Lung mass Status: Acute
--- NOTE | 2017-09-25 15:11 | CT ---
PROCEDURE: CT Abdomen and Pelvis with contrast HISTORY: r/o mets COMPARISON: CT chest without contrast performed 09/20/17 TECHNIQUE: Contrast dose: 100 mL Visipaque IV Radiation dose: Total exam DLP = 367.18 mGy-cm. This CT exam was performed using one or more of the following dose reduction techniques: Automated exposure control, adjustment of the mA and/or kV according to patient size, and/or use of iterative reconstruction technique. FINDINGS: LOWER THORAX: Partially imaged lung bases reveals heterogeneous mass within the imaged portion of the right mid/lower lung and large pleural effusion. LIVER: Unremarkable. GALLBLADDER AND BILE DUCTS: Unremarkable. PANCREAS: Unremarkable. SPLEEN: Unremarkable. ADRENALS: Unremarkable. KIDNEYS AND URETERS: The kidneys enhance symmetrically. No hydronephrosis or obstructing calculus identified. 13 mm right renal hypodensity, likely cyst. 9 mm distal left ureteral calcification (series 3, 158). VASCULATURE: No aortic aneurysm. BOWEL: Stomach is nondistended. Lack of oral contrast limits evaluation for bowel pathology. Bowel loops appear within normal limits of caliber without evidence of obstruction. APPENDIX: The appendix appears within normal limits of caliber. No secondary signs of acute appendicitis. PERITONEUM: No significant free fluid. No definite free air. LYMPH NODES: No bulky adenopathy identified. BLADDER: Thick-walled under distended urinary bladder. REPRODUCTIVE: Prostate gland measures approximately 3.3 x 4.9 cm. BONES: Scattered faint lucent lesions throughout the spine and pelvis. Faintly visualized sclerotic foci within left sacrum and right ilium. Appearance worrisome for metastases. OTHER FINDINGS: None. IMPRESSION: Partially imaged lung bases reveals heterogeneous mass within the imaged portion of the right mid/lower lung and large pleural effusion. 13 mm right renal hypodensity, likely cyst. 9 mm distal left ureteral calculus with dilated ureter distal to the calculus. Scattered faint lucent lesions throughout the spine and pelvis. Faintly visualized sclerotic foci within left sacrum and right ilium. Appearance worrisome for metastasis. Thick-walled under distended urinary bladder. Recommend correlation with urinalysis. Additional findings as above.
--- NOTE | 2017-09-25 23:09 | OP ---
PROCEDURE DATE: PROCEDURE: Fiberoptic bronchoscopy with biopsy brushing and washing. PREOPERATIVE DIAGNOSIS: Right lung mass. POSTOPERATIVE DIAGNOSIS: Endobronchial lesion obstructing bronchus intermedius; fiberoptic bronchoscopy procedure was done. DESCRIPTION OF PROCEDURE: After obtaining consent from the patient, explaining the patient risks and benefits, which she understood, the procedure was done. After the patient was intubated by the anesthesiologist, the bronchoscope was passed through the endotracheal tube into the trachea. The main alison was sharp. Then the bronchoscope was passed to the left side, which appeared normal. Later, the bronchoscope was pulled back and passed on the right side. Small amount of blood noted, which was suctioned out. There was swelling and edema of the old right upper lobe, right main stem and almost complete occlusion of bronchus intermedius by endobronchial lesions. Multiple biopsy brushings and washings were done of endobronchial lesion in the bronchus intermedius. Small amount of bleeding noted which was stopped by epinephrine. The patient tolerated the procedure well. No complications. Thom Caicedo MD
[2017-09-26] MEDS: Levothyroxine 25 MCG TAB PO SCH (06:19)
[2017-09-26 06:57] LABS: ALB/GLOB RATIO 0.7 (1.0-2.1); ALKALINE PHOSPHATASE 168 U/L (38-126); ALT/SGPT 53 U/L (21-72); AST/SGOT 33 U/L (17-59); BILIRUBIN,TOTAL 0.5 mg/dL (0.2-1.3); BLOOD UREA NITROGEN 10 mg/dL (9-20); CALCIUM 8.3 mg/dl (8.6-10.4); CARBON DIOXIDE 31 mmol/L (22-30); CHLORIDE 96 mmol/L (98-107); GFR AFRICAN-AMERICAN > 60; GLUCOSE,RANDOM 112 mg/dL (75-110); POTASSIUM 4.4 mmol/L (3.6-5.2); SODIUM 132 mmol/L (132-148); TOTAL PROTEIN 7.2 g/dL (6.3-8.3)
--- NOTE | 2017-09-26 06:58 | CP.PCM.PN ---
<Alyce Baez - Last Filed: 09/26/17 10:35> Subjective - Date & Time of Evaluation Date of Evaluation: 09/26/17 Time of Evaluation: 06:58 - Subjective Subjective: Medicine Progress Note for Dr. Khan Patient was seen and examined at bedside in no acute distress. Patient was laying comfortably in bed. Patient reports feeling better. Patient states he still has some tenderness in his back after at the site of thoracentesis which is worse with coughing. He also reports that then he is cold, he feels worse and his breathing is worse, so he tried to stay warm and under blankets. Patient denies having chest pain, abdominal pain, nausea, vomiting, fevers, and headaches. Objective - Vital Signs/Intake and Output Vital Signs (last 24 hours): Temp Pulse Resp BP Pulse Ox 99.7 F H 122 H 20 110/77 99 09/25/17 23:10 09/26/17 04:24 09/25/17 23:10 09/25/17 23:10 09/25/17 23:10 Intake and Output: 09/25/17 09/26/17 18:59 06:59 Intake Total 750 200 Output Total 300 Balance 750 -100 - Medications Medications: Current Medications Azithromycin (Zithromax) 500 mg PO DAILY [facility] Famotidine (Pepcid) 20 mg PO BID [facility] Last Admin: 09/25/17 17:58 Dose: 20 mg Heparin Sodium (Porcine) (Heparin) 5,000 units SC Q8 [facility] Last Admin: 09/24/17 22:29 Dose: 5,000 units Ceftriaxone Sodium 1 gm/ (Sodium Chloride) 100 mls @ 100 mls/hr IVPB DAILY [facility] Last Admin: 09/25/17 11:59 Dose: 100 mls/hr Levothyroxine Sodium (Synthroid) 25 mcg PO DAILY@0630 [facility] Last Admin: 09/26/17 06:19 Dose: 25 mcg Ondansetron HCl (Zofran Inj) 4 mg IVP Q6 PRN PRN Reason: Nausea/Vomiting Last Admin: 09/24/17 18:03 Dose: 4 mg Pneumococcal Polyvalent Vaccine (Pneumovax 23 Vaccine) 0.5 ml IM .ONCE ONE Stop: 09/26/17 10:01 - Labs Labs: 09/25/17 06:48 09/26/17 06:28 PT 13.3 SECONDS (9.7-12.2) H 09/25/17 06:48 INR 1.2 09/25/17 06:48 APTT 33 SECONDS (21-34) 09/25/17 06:48 - Additional Findings Additional findings: - Constitutional Appears: Non-toxic, No Acute Distress - Head Exam Head Exam: NORMAL INSPECTION - Eye Exam Eye Exam: EOMI. absent: scleral icterus - ENT Exam ENT Exam: Mucous Membranes Moist - Respiratory Exam Respiratory Exam: Decreased Breath Sounds (R>L), s/p thoracentesis- dressing clean, dry, intact. Dullness to percussion on the right. absent: Accessory Muscle Use, Respiratory Distress, Stridor - Cardiovascular Exam Cardiovascular Exam: REGULAR RHYTHM, +S1, +S2. absent: Gallop, Rubs, Murmur - GI/Abdominal Exam GI & Abdominal Exam: Soft, Normal Bowel Sounds. absent: Tenderness - Extremities Exam Extremities Exam: absent: Pedal Edema, calf tenderness - Neurological Exam Neurological Exam: Alert, Awake, Oriented x3 Neuro motor strength exam: Left Upper Extremity: 5, Right Upper Extremity: 5 - Psychiatric Exam Psychiatric exam: Normal Affect, Normal Mood - Skin Skin Exam: Normal Color, Warm Assessment and Plan (1) Pleural effusion on right Status: Acute (2) Lung mass Status: Acute (3) Right upper limb pain Status: Acute (4) Hypothyroidism Status: Acute (5) Prophylactic measure Status: Acute - Assessment and Plan (Free Text) Plan: Pleural effusion on right Assessment and Plan: * Chest Xray (09/20): large right sided pleural effusion; pending official read * Chest CT (09/20): severe right pleural effusion with associated ateletasis/ lung collapse; evidence of underlying large heterogenous mass involving medial right lung field and mediastinum ([id number]); significant mediastinal shift to the left; mild pericardial effusion; multiple lytic foci in vertebral bodies concerning for metastatic disease. * O2 prn via nasal cannula * IR consulted for pleural fluid analysis, help appreciated. * Removed 3L of pleural fluid * Fluid analysis: WBC 480, RBC 9630, Total cell count 100, Neutrophil 4, Lymphocyte 93, Lucas/Macrophage 3; fluid diff pathology- atypical cells singly and in cluster; suspicious for malignancy * Pulm consulted - Dr. Caicedo - help appreciated * Dr. Caicedo planned for thoracentesis on Saturday, 09/21; however, patient was nervous and wanted his to be there when it is done. Thoracentesis was not performed over weekend. * Thoracic surgery consulted - Dr. Alaniz - f/u recs in case patient needs chest tube * as per surgery team, no surgery at this time. Status: Acute Lung mass Assessment and Plan: * Chest CT (09/20): severe right pleural effusion with associated ateletasis/ lung collapse; evidence of underlying large heterogenous mass involving medial right lung field and mediastinum ([id number]); significant mediastinal shift to the left; mild pericardial effusion; multiple lytic foci in vertebral bodies concerning for metastatic disease * Head CT: no evidence of acute intracranial hemorrhage, mass lesion, mass effect or midline shift * Thoracic spine CT: multiple lytic lesions in thoracic spine consistent with metastasis * Cervical spine CT: no evidence of destructive bony lesion; small to moderate size osteophyte disc bulge complex at C5-6 associated with mild spinal and neural foraminal narrowing; large right pleural effusion. * Heme/Onc consulted, Dr. Sultana, help appreciated. * Pulm consulted - Dr. Caicedo - help appreciated * Bronchoscopy and biopsy- f/u results * Brain MRI with contrast: no evidence of metastasis * Abdomen/Pelvis CT w/contrast to r/o mets: scattered faint lucent lesions throughout spine and pelvis; faintly visualized sclerotic foci within left sacrum and right ilium. worrisome for metastasis. Status: Acute Right upper limb pain/numbness Assessment and Plan: Patient complains of right upper extremity and right back pain and numbness * Likely secondary to pleural effusion and right lung mass * Right Upper Extremity Doppler: negative * Possibly secondary to nerve infringement, will get MRI once pleural effusion is resolved * Neurology consulted, Dr. Bowden, help appreciated * Head CT: no evidence of acute intracranial hemorrhage, mass lesion, mass effect or midline shift * Thoracic spine CT: multiple lytic lesions in thoracic spine consistent with metastasis * Cervical spine CT: no evidence of destructive bony lesion; small to moderate size osteophyte disc bulge complex at C5-6 associated with mild spinal and neural foraminal narrowing; large right pleural effusion Status: Acute Hypothyroidism Assessment and Plan: Continue home medication: Levothyroxine 25mcg PO daily. * TSH: 2.09 * T4: 1.49 Status: Acute Prophylactic measure Assessment and Plan: Heparin 5,000 SC Q8h- held for bronchoscopy Pepcid 20mg PO BID Regular Diet O2 via nasal cannula prn PT/OT- encouraged OOB and ambulate Status: Acute <Nathan Khan H - Last Filed: 09/26/17 14:13> Objective - Vital Signs/Intake and Output Vital Signs (last 24 hours): Temp Pulse Resp BP Pulse Ox 98.9 F 119 H 20 104/75 99 09/26/17 08:38 09/26/17 08:38 09/26/17 08:38 09/26/17 08:38 09/26/17 08:38 Intake and Output: 09/26/17 09/26/17 06:59 18:59 Intake Total 200 Output Total 300 Balance -100 - Medications Medications: Current Medications Famotidine (Pepcid) 20 mg PO BID [facility] Last Admin: 09/26/17 10:05 Dose: 20 mg Heparin Sodium (Porcine) (Heparin) 5,000 units SC Q8 [facility] Levothyroxine Sodium (Synthroid) 25 mcg PO DAILY@0630 [facility] Last Admin: 09/26/17 06:19 Dose: 25 mcg Ondansetron HCl (Zofran Inj) 4 mg IVP Q6 PRN PRN Reason: Nausea/Vomiting Last Admin: 09/24/17 18:03 Dose: 4 mg - Labs Labs: 09/26/17 06:28 09/26/17 06:28 PT 13.3 SECONDS (9.7-12.2) H 09/25/17 06:48 INR 1.2 09/25/17 06:48 APTT 33 SECONDS (21-34) 09/25/17 06:48 Attending/Attestation - Attestation I have personally seen and examined this patient.: Yes I have fully participated in the care of the patient.: Yes I have reviewed all pertinent clinical information, including history, physical exam and plan: Yes Notes (Text): 09/26/17 14:13 Medical attending: The patient was not under any acute distress when we saw him. I reviewed and agree with the above note by medical technicians. At this time the patient has had a thoracentesis with 3 L removed from the right lung pleural effusion. He yesterday then underwent bronchoscopy with transbronchial biopsy. The results of these are still pending at this time He has also underwent imaging done of the abdomen and pelvis as well as of the brain. Today on physical exam he was not in any acute distress, he hasn't tried walking at this moment sort get PT and OT to see him. On exam he still has decreased breath sounds on the right lung. As well as dullness to percussion Thank you so much, Nathan Khan
[2017-09-26 07:02] LABS: BASO # 0.1 K/uL (0.0-0.2); BASO % 0.5 % (0.0-2.0); EOS # 0.2 K/uL (0.0-0.7); EOS % 1.3 % (0.0-4.0); HEMATOCRIT 32.8 % (35.0-51.0); LYMPH # 1.6 K/uL (1.0-4.3); LYMPH % 12.7 % (20.0-40.0); MEAN CELL VOLUME 87.6 fL (80.0-94.0); MEAN CORPUSCULAR HEMOGLOBIN 28.6 pg (27.0-31.0); MEAN CORPUSCULAR HGB CONC 32.6 g/dL (33.0-37.0); MEAN PLATELET VOLUME 8.6 fL (7.2-11.7); MONO # 1.1 K/uL (0.0-0.8); MONO % 9.2 % (0.0-10.0); RED CELL DISTRIBUTION WIDTH 13.1 % (11.5-14.5); WHITE BLOOD COUNT 12.5 K/uL (4.8-10.8)
[2017-09-26] MEDS ORDERED: Pneumococcal 23-Valent Vaccine IM ONE (10:00)
[2017-09-26] MEDS ORDERED: Influenza Vaccine 60 mcg/0.5 mL SYR (4YR UP) IM ONE (10:00)
--- NOTE | 2017-09-26 10:48 | CP.PCM.PN ---
Subjective - Date & Time of Evaluation Date of Evaluation: 09/26/17 Time of Evaluation: 10:45 - Subjective Subjective: Mr. Draper was seen and examined at the bedside. He is alert, oriented in all spheres. He denies any blurred vision, dizziness, lightheadedness, nausea, or vomiting. He states of experiencing mild headache located in the right parietal area, non-radiating, with pain scale of 1/10. He is sitting at the edge of his bed and able to ambulate to the bathroom with minimal assistance. There was no untoward events overnight. Objective - Vital Signs/Intake and Output Vital Signs (last 24 hours): Temp Pulse Resp BP Pulse Ox 98.9 F 119 H 20 104/75 99 09/26/17 08:38 09/26/17 08:38 09/26/17 08:38 09/26/17 08:38 09/26/17 08:38 Intake and Output: 09/26/17 09/26/17 06:59 18:59 Intake Total 200 Output Total 300 Balance -100 - Medications Medications: Current Medications Famotidine (Pepcid) 20 mg PO BID [facility] Last Admin: 09/25/17 17:58 Dose: 20 mg Heparin Sodium (Porcine) (Heparin) 5,000 units SC Q8 [facility] Levothyroxine Sodium (Synthroid) 25 mcg PO DAILY@0630 [facility] Last Admin: 09/26/17 06:19 Dose: 25 mcg Ondansetron HCl (Zofran Inj) 4 mg IVP Q6 PRN PRN Reason: Nausea/Vomiting Last Admin: 09/24/17 18:03 Dose: 4 mg - Labs Labs: 09/26/17 06:28 09/26/17 06:28 PT 13.3 SECONDS (9.7-12.2) H 09/25/17 06:48 INR 1.2 09/25/17 06:48 APTT 33 SECONDS (21-34) 09/25/17 06:48 - Constitutional Appears: No Acute Distress - Head Exam Head Exam: ATRAUMATIC - Neurological Exam Neurological Exam: Alert, Awake, CN II-XII Intact, Oriented x3 Neuro motor strength exam: Left Upper Extremity: 4, Right Upper Extremity: 4, Left Lower Extremity: 4, Right Lower Extremity: 4 Additional comments: Neurological unchanged from previous examination. Assessment and Plan (1) Lung mass Assessment & Plan: Case discussed with Dr. Bowden, continue all current medical regimen. There is no new recommendation from neurology. Status: Acute
--- NOTE | 2017-09-26 17:48 | CP.PCM.PN ---
Subjective - Date & Time of Evaluation Date of Evaluation: 09/26/17 Time of Evaluation: 09:00 - Subjective Subjective: Patient seen and examined Denies shortness of breath Complaining of right shoulder pain Denies fever chills Status post thoracentesis and bronchoscopy with biopsy Objective - Vital Signs/Intake and Output Vital Signs (last 24 hours): Temp Pulse Resp BP Pulse Ox 99.7 F H 114 H 18 112/81 100 09/26/17 15:30 09/26/17 15:30 09/26/17 15:30 09/26/17 15:30 09/26/17 15:30 Intake and Output: 09/26/17 09/26/17 06:59 18:59 Intake Total 200 Output Total 300 Balance -100 - Medications Medications: Current Medications Famotidine (Pepcid) 20 mg PO BID [facility] Last Admin: 09/26/17 10:05 Dose: 20 mg Heparin Sodium (Porcine) (Heparin) 5,000 units SC Q8 [facility] Levothyroxine Sodium (Synthroid) 25 mcg PO DAILY@0630 [facility] Last Admin: 09/26/17 06:19 Dose: 25 mcg Ondansetron HCl (Zofran Inj) 4 mg IVP Q6 PRN PRN Reason: Nausea/Vomiting Last Admin: 09/24/17 18:03 Dose: 4 mg - Labs Labs: 09/26/17 06:28 09/26/17 06:28 PT 13.3 SECONDS (9.7-12.2) H 09/25/17 06:48 INR 1.2 09/25/17 06:48 APTT 33 SECONDS (21-34) 09/25/17 06:48 - Head Exam Head Exam: ATRAUMATIC, NORMOCEPHALIC - Eye Exam Eye Exam: Normal appearance - ENT Exam ENT Exam: Mucous Membranes Moist - Neck Exam Neck Exam: Normal Inspection - Respiratory Exam Respiratory Exam: Decreased Breath Sounds - Cardiovascular Exam Cardiovascular Exam: REGULAR RHYTHM - GI/Abdominal Exam GI & Abdominal Exam: Soft, Normal Bowel Sounds Assessment and Plan (1) Pleural effusion on right Assessment & Plan: status post thoracentesis with positive malignant cells Status: Acute (2) Lung mass Assessment & Plan: status post bronchoscopy and biopsy with complete obstruction of bronchus intermedius Status: Acute
[2017-09-27] MEDS: Levothyroxine 25 MCG TAB PO SCH (05:36)
[2017-09-27 06:28] LABS: BASO # 0.1 K/uL (0.0-0.2); BASO % 0.9 % (0.0-2.0); EOS # 0.2 K/uL (0.0-0.7); EOS % 1.3 % (0.0-4.0); HEMATOCRIT 32.4 % (35.0-51.0); LYMPH # 1.6 K/uL (1.0-4.3); MEAN CELL VOLUME 86.9 fL (80.0-94.0); MEAN CORPUSCULAR HEMOGLOBIN 29.2 pg (27.0-31.0); MEAN CORPUSCULAR HGB CONC 33.6 g/dL (33.0-37.0); MEAN PLATELET VOLUME 8.4 fL (7.2-11.7); MONO # 1.2 K/uL (0.0-0.8); MONO % 9.7 % (0.0-10.0); RED CELL DISTRIBUTION WIDTH 13.2 % (11.5-14.5); WHITE BLOOD COUNT 11.9 K/uL (4.8-10.8)
--- NOTE | 2017-09-27 06:57 | CP.PCM.PN ---
Subjective - Date & Time of Evaluation Date of Evaluation: 09/27/17 Time of Evaluation: 06:57 - Subjective Subjective: Medicine Progress Note for Dr. Khan Patient was seen and examined at bedside in no acute distress. Patient was laying comfortably in bed. Patient reports feeling better. Patient reports he tried walking with PT, however, his heart rate increased so he stopped walking. Patient states he is tolerating his diet and he feels better after eating. Patient denies having chest pain, abdominal pain, nausea, vomiting, fevers, and headaches. Objective - Vital Signs/Intake and Output Vital Signs (last 24 hours): Temp Pulse Resp BP Pulse Ox 99.4 F 114 H 20 104/74 100 09/26/17 23:10 09/27/17 04:28 09/26/17 23:10 09/26/17 23:10 09/26/17 23:10 Intake and Output: 09/26/17 09/27/17 18:59 06:59 Intake Total 30 Output Total 200 Balance -170 - Medications Medications: Current Medications Famotidine (Pepcid) 20 mg PO BID [facility] Last Admin: 09/26/17 19:58 Dose: 20 mg Heparin Sodium (Porcine) (Heparin) 5,000 units SC Q8 [facility] Last Admin: 09/27/17 05:36 Dose: 5,000 units Levothyroxine Sodium (Synthroid) 25 mcg PO DAILY@0630 [facility] Last Admin: 09/27/17 05:36 Dose: 25 mcg Ondansetron HCl (Zofran Inj) 4 mg IVP Q6 PRN PRN Reason: Nausea/Vomiting Last Admin: 09/24/17 18:03 Dose: 4 mg - Labs Labs: 09/27/17 06:19 09/26/17 06:28 PT 13.3 SECONDS (9.7-12.2) H 09/25/17 06:48 INR 1.2 09/25/17 06:48 APTT 33 SECONDS (21-34) 09/25/17 06:48 - Additional Findings Additional findings: - Constitutional Appears: Non-toxic, No Acute Distress - Head Exam Head Exam: NORMAL INSPECTION - Eye Exam Eye Exam: EOMI. absent: scleral icterus - ENT Exam ENT Exam: Mucous Membranes Moist - Respiratory Exam Respiratory Exam: Decreased Breath Sounds (R>L), s/p thoracentesis- dressing clean, dry, intact. Dullness to percussion on the right. absent: Accessory Muscle Use, Respiratory Distress, Stridor - Cardiovascular Exam Cardiovascular Exam: REGULAR RHYTHM, +S1, +S2. absent: Gallop, Rubs, Murmur - GI/Abdominal Exam GI & Abdominal Exam: Soft, Normal Bowel Sounds. absent: Tenderness - Extremities Exam Extremities Exam: absent: Pedal Edema, calf tenderness - Neurological Exam Neurological Exam: Alert, Awake, Oriented x3 Neuro motor strength exam: Left Upper Extremity: 5, Right Upper Extremity: 5 - Psychiatric Exam Psychiatric exam: Normal Affect, Normal Mood - Skin Skin Exam: Normal Color, Warm Assessment and Plan (1) Pleural effusion on right Status: Acute (2) Lung mass Status: Acute (3) Right upper limb pain Status: Acute (4) Hypothyroidism Status: Acute (5) Prophylactic measure Status: Acute - Assessment and Plan (Free Text) Plan: Pleural effusion on right Assessment and Plan: * Chest Xray (09/20): large right sided pleural effusion; pending official read * Chest CT (09/20): severe right pleural effusion with associated ateletasis/ lung collapse; evidence of underlying large heterogenous mass involving medial right lung field and mediastinum ([id number]); significant mediastinal shift to the left; mild pericardial effusion; multiple lytic foci in vertebral bodies concerning for metastatic disease. * O2 prn via nasal cannula * IR consulted for pleural fluid analysis, help appreciated. * Removed 3L of pleural fluid * Fluid analysis: WBC 480, RBC 9630, Total cell count 100, Neutrophil 4, Lymphocyte 93, [place]/Macrophage 3; fluid diff pathology- atypical cells singly and in cluster; suspicious for malignancy * Pulm consulted - Dr. Caicedo - help appreciated * Dr. Caicedo planned for thoracentesis on Saturday, 09/21; however, patient was nervous and wanted his to be there when it is done. Thoracentesis was not performed over weekend. * Thoracic surgery consulted - Dr. Alaniz - f/u recs in case patient needs chest tube * as per surgery team, no surgery at this time. Status: Acute Lung mass Assessment and Plan: * Chest CT (09/20): severe right pleural effusion with associated ateletasis/ lung collapse; evidence of underlying large heterogenous mass involving medial right lung field and mediastinum ([id number]); significant mediastinal shift to the left; mild pericardial effusion; multiple lytic foci in vertebral bodies concerning for metastatic disease * Head CT: no evidence of acute intracranial hemorrhage, mass lesion, mass effect or midline shift * Thoracic spine CT: multiple lytic lesions in thoracic spine consistent with metastasis * Cervical spine CT: no evidence of destructive bony lesion; small to moderate size osteophyte disc bulge complex at C5-6 associated with mild spinal and neural foraminal narrowing; large right pleural effusion. * Heme/Onc consulted, Dr. Sultana, help appreciated. * Pulm consulted - Dr. Caicedo - help appreciated * Bronchoscopy and biopsy- f/u results * Brain MRI with contrast: no evidence of metastasis * Abdomen/Pelvis CT w/contrast to r/o mets: scattered faint lucent lesions throughout spine and pelvis; faintly visualized sclerotic foci within left sacrum and right ilium. worrisome for metastasis. Status: Acute Right upper limb pain/numbness Assessment and Plan: Patient complains of right upper extremity and right back pain and numbness * Likely secondary to pleural effusion and right lung mass * Right Upper Extremity Doppler: negative * Possibly secondary to nerve infringement, will get MRI once pleural effusion is resolved * Neurology consulted, Dr. Bowden, help appreciated * Head CT: no evidence of acute intracranial hemorrhage, mass lesion, mass effect or midline shift * Thoracic spine CT: multiple lytic lesions in thoracic spine consistent with metastasis * Cervical spine CT: no evidence of destructive bony lesion; small to moderate size osteophyte disc bulge complex at C5-6 associated with mild spinal and neural foraminal narrowing; large right pleural effusion Status: Acute Hypothyroidism Assessment and Plan: Continue home medication: Levothyroxine 25mcg PO daily. * TSH: 2.09 * T4: 1.49 Status: Acute Prophylactic measure Assessment and Plan: Heparin 5,000 SC Q8h- held for bronchoscopy Pepcid 20mg PO BID Regular Diet O2 via nasal cannula prn PT/OT- encouraged OOB and ambulate Status: Acute
[2017-09-27 07:26] LABS: ALKALINE PHOSPHATASE 180 U/L (38-126); ALT/SGPT 47 U/L (21-72); AST/SGOT 37 U/L (17-59); BILIRUBIN,TOTAL 0.6 mg/dL (0.2-1.3); BLOOD UREA NITROGEN 12 mg/dL (9-20); CALCIUM 8.1 mg/dl (8.6-10.4); CARBON DIOXIDE 31 mmol/L (22-30); CHLORIDE 96 mmol/L (98-107); GFR AFRICAN-AMERICAN > 60; GLUCOSE,RANDOM 111 mg/dL (75-110); POTASSIUM 4.2 mmol/L (3.6-5.2); SODIUM 132 mmol/L (132-148); TOTAL PROTEIN 6.1 g/dL (6.3-8.3)
[2017-09-27 07:32] LABS: ALB/GLOB RATIO 0.9 (1.0-2.1)
--- NOTE | 2017-09-27 10:02 | CP.PCM.PN ---
Subjective - Date & Time of Evaluation Date of Evaluation: 09/27/17 Time of Evaluation: 09:59 - Subjective Subjective: Mr. Draper was seen and examined at the bedside. He is alert, oriented in all spheres. He states of feeling less pain when sitting in comparison to supine position. He is able to do his ADL independently. He denies any headache, blurred vision, nausea, vomiting, dizziness, or lightheadedness. There was no untoward events overnight. Objective - Vital Signs/Intake and Output Vital Signs (last 24 hours): Temp Pulse Resp BP Pulse Ox 98.7 F 115 H 20 105/74 99 09/27/17 08:08 09/27/17 08:08 09/27/17 08:08 09/27/17 08:08 09/27/17 08:08 Intake and Output: 09/27/17 09/27/17 06:59 18:59 Intake Total 30 Output Total 200 Balance -170 - Medications Medications: Current Medications Famotidine (Pepcid) 20 mg PO BID [facility] Last Admin: 09/27/17 09:15 Dose: 20 mg Heparin Sodium (Porcine) (Heparin) 5,000 units SC Q8 [facility] Last Admin: 09/27/17 05:36 Dose: 5,000 units Levothyroxine Sodium (Synthroid) 25 mcg PO DAILY@0630 [facility] Last Admin: 09/27/17 05:36 Dose: 25 mcg Ondansetron HCl (Zofran Inj) 4 mg IVP Q6 PRN PRN Reason: Nausea/Vomiting Last Admin: 09/24/17 18:03 Dose: 4 mg - Labs Labs: 09/27/17 06:19 09/27/17 06:19 PT 13.3 SECONDS (9.7-12.2) H 09/25/17 06:48 INR 1.2 09/25/17 06:48 APTT 33 SECONDS (21-34) 09/25/17 06:48 - Constitutional Appears: No Acute Distress - Head Exam Head Exam: ATRAUMATIC - Neurological Exam Neurological Exam: Alert, Awake, CN II-XII Intact, Normal Gait, Oriented x3 Neuro motor strength exam: Left Upper Extremity: 4, Right Upper Extremity: 4, Left Lower Extremity: 4, Right Lower Extremity: 4 Additional comments: Neurological unchanged from previous examination. Assessment and Plan (1) Lung mass Assessment & Plan: Case discussed with Dr. Bowden, continue all current medical, physical, and occupational therapies. There is no new recommendation from neurology. Status: Acute
--- NOTE | 2017-09-27 10:09 | CP.PCM.PN ---
Subjective - Date & Time of Evaluation Date of Evaluation: 09/27/17 Time of Evaluation: 08:20 - Subjective Subjective: patient seen and examined Complaining of palpitation Awaiting pathology report Oncology followup Objective - Vital Signs/Intake and Output Vital Signs (last 24 hours): Temp Pulse Resp BP Pulse Ox 98.7 F 115 H 20 105/74 99 09/27/17 08:08 09/27/17 08:08 09/27/17 08:08 09/27/17 08:08 09/27/17 08:08 Intake and Output: 09/27/17 09/27/17 06:59 18:59 Intake Total 30 Output Total 200 Balance -170 - Medications Medications: Current Medications Famotidine (Pepcid) 20 mg PO BID [facility] Last Admin: 09/27/17 09:15 Dose: 20 mg Heparin Sodium (Porcine) (Heparin) 5,000 units SC Q8 [facility] Last Admin: 09/27/17 05:36 Dose: 5,000 units Levothyroxine Sodium (Synthroid) 25 mcg PO DAILY@0630 [facility] Last Admin: 09/27/17 05:36 Dose: 25 mcg Ondansetron HCl (Zofran Inj) 4 mg IVP Q6 PRN PRN Reason: Nausea/Vomiting Last Admin: 09/24/17 18:03 Dose: 4 mg - Labs Labs: 09/27/17 06:19 09/27/17 06:19 PT 13.3 SECONDS (9.7-12.2) H 09/25/17 06:48 INR 1.2 09/25/17 06:48 APTT 33 SECONDS (21-34) 09/25/17 06:48 - Head Exam Head Exam: ATRAUMATIC, NORMOCEPHALIC - Eye Exam Eye Exam: PERRL - ENT Exam ENT Exam: Mucous Membranes Moist - Neck Exam Neck Exam: Full ROM, Normal Inspection - Respiratory Exam Respiratory Exam: Decreased Breath Sounds - Cardiovascular Exam Cardiovascular Exam: REGULAR RHYTHM - GI/Abdominal Exam GI & Abdominal Exam: Soft, Normal Bowel Sounds - Extremities Exam Extremities Exam: Normal Inspection - Neurological Exam Neurological Exam: Awake Assessment and Plan (1) Pleural effusion on right Assessment & Plan: status post thoracentesis Status: Acute (2) Lung mass Assessment & Plan: status post lung biopsy Check pathology report Oncology follow up Status: Acute
[2017-09-27 15:42] VITALS: BP 108/77; RESP 18; TEMP 98.6; O2SAT 100
--- NOTE | 2017-09-27 15:52 | CP.PCM.DIS ---
<Alyce Baez - Last Filed: 09/27/17 19:50> Provider - Provider Date of Admission: 09/20/17 20:41 Attending physician: Nathan Khan DO Primary care physician: Dr. Jaramillo Consults: Pulmonology: Dr. Caicedo Oncology: Dr. Sultana Time Spent in preparation of Discharge (in minutes): 45 Diagnosis - Discharge Diagnosis (1) Pleural effusion on right Status: Acute Priority: High (2) Lung mass Status: Acute Priority: High (3) Right upper limb pain Status: Acute Priority: High (4) Hypothyroidism Status: Acute (5) Prophylactic measure Status: Acute Hospital Course - Lab Results Lab Results: Micro Results 09/25/17 09:33 Bronchial Washings Bronchial Culture - Final No growth. 09/23/17 10:57 Body Fluid - Pleural Fluid Gram Stain - Final 09/23/17 10:57 Body Fluid - Pleural Fluid Body Fluid Culture - Preliminary No growth. 09/25/17 09:32 Bronchial Washings Fungal Culture - Preliminary Most Recent Lab Values WBC 11.9 K/uL (4.8-10.8) H 09/27/17 06:19 RBC 3.73 Mil/uL (4.40-5.90) L 09/27/17 06:19 Hgb 10.9 g/dL (12.0-18.0) L 09/27/17 06:19 Hct 32.4 % (35.0-51.0) L 09/27/17 06:19 MCV 86.9 fL (80.0-94.0) 09/27/17 06:19 MCH 29.2 pg (27.0-31.0) 09/27/17 06:19 MCHC 33.6 g/dL (33.0-37.0) 09/27/17 06:19 RDW 13.2 % (11.5-14.5) 09/27/17 06:19 Plt Count 614 K/uL (130-400) H 09/27/17 06:19 MPV 8.4 fL (7.2-11.7) 09/27/17 06:19 Neut % (Auto) 75.1 % (50.0-75.0) H 09/27/17 06:19 Lymph % (Auto) 13.0 % (20.0-40.0) L 09/27/17 06:19 [place] % (Auto) 9.7 % (0.0-10.0) 09/27/17 06:19 Eos % (Auto) 1.3 % (0.0-4.0) 09/27/17 06:19 Baso % (Auto) 0.9 % (0.0-2.0) 09/27/17 06:19 Neut # 9.0 K/uL (1.8-7.0) H 09/27/17 06:19 Lymph # 1.6 K/uL (1.0-4.3) 09/27/17 06:19 [place] # 1.2 K/uL (0.0-0.8) H 09/27/17 06:19 Eos # 0.2 K/uL (0.0-0.7) 09/27/17 06:19 Baso # 0.1 K/uL (0.0-0.2) 09/27/17 06:19 PT 13.3 SECONDS (9.7-12.2) H 09/25/17 06:48 INR 1.2 09/25/17 06:48 APTT 33 SECONDS (21-34) 09/25/17 06:48 Sodium 132 mmol/L (132-148) 09/27/17 06:19 Potassium 4.2 mmol/L (3.6-5.2) 09/27/17 06:19 Chloride 96 mmol/L (98-107) L 09/27/17 06:19 Carbon Dioxide 31 mmol/L (22-30) H 09/27/17 06:19 Anion Gap 10 (10-20) 09/27/17 06:19 BUN 12 mg/dL (9-20) 09/27/17 06:19 Creatinine 0.7 mg/dL (0.8-1.5) L 09/27/17 06:19 Est GFR ( Amer) > 60 09/27/17 06:19 Est GFR (Non-Af Amer) > 60 09/27/17 06:19 POC Glucose (mg/dL) 106 mg/dL (65-110) 09/20/17 18:18 Random Glucose 111 mg/dL (75-110) H 09/27/17 06:19 Calcium 8.1 mg/dl (8.6-10.4) L 09/27/17 06:19 Magnesium 1.9 mg/dL (1.6-2.3) 09/23/17 06:00 Total Bilirubin 0.6 mg/dL (0.2-1.3) 09/27/17 06:19 AST 37 U/L (17-59) 09/27/17 06:19 ALT 47 U/L (21-72) 09/27/17 06:19 Alkaline Phosphatase 180 U/L (38-126) H 09/27/17 06:19 Troponin I < 0.0120 ng/mL (0.00-0.120) 09/20/17 18:45 NT-Pro-B Natriuret Pep 79.9 pg/mL (0-900) 09/20/17 18:45 Total Protein 6.1 g/dL (6.3-8.3) L 09/27/17 06:19 Albumin 3.0 g/dL (3.5-5.0) L 09/27/17 06:19 Globulin 3.1 gm/dL (2.2-3.9) 09/27/17 06:19 Albumin/Globulin Ratio 0.9 (1.0-2.1) L 09/27/17 06:19 Free T4 1.49 ng/dL (0.78-2.19) 09/20/17 18:45 TSH 3rd Generation 2.09 mIU/L (0.46-4.68) 09/20/17 18:45 Urine Color Yellow (YELLOW) 09/20/17 19:41 Urine Clarity Clear (Clear) 09/20/17 19:41 Urine pH 6.0 (5.0-8.0) 09/20/17 19:41 Ur Specific [place] 1.015 (1.003-1.030) 09/20/17 19:41 Urine Protein Negative mg/dL (NEGATIVE) 09/20/17 19:41 Urine Glucose (UA) Normal mg/dL (Normal) 09/20/17 19:41 Urine Ketones Trace mg/dL (NEGATIVE) 09/20/17 19:41 Urine Blood Negative (NEGATIVE) 09/20/17 19:41 Urine Nitrate Negative (NEGATIVE) 09/20/17 19:41 Urine Bilirubin Negative (NEGATIVE) 09/20/17 19:41 Urine Urobilinogen Normal mg/dL (0.2-1.0) 09/20/17 19:41 Ur Leukocyte Esterase Neg Danny/uL (Negative) 09/20/17 19:41 Urine WBC (Auto) 2 /hpf (0-5) 09/20/17 19:41 Urine RBC (Auto) 3 /hpf (0-3) 09/20/17 19:41 Urine Bacteria Rare (<OCC) 09/20/17 19:41 Hyaline Casts 0-2 /lpf (0-2) 09/20/17 19:41 Fluid Source Pleural/thoracentesi 09/23/17 10:57 Fluid Appearance Cloudy (CLEAR) 09/23/17 10:57 Fluid WBC 480.0 /mm3 (0.0-300.0) H 09/23/17 10:57 Fluid RBC 9630.0 /mm3 (0.0-0.0) H 09/23/17 10:57 Fluid Tot Cell Count 100 (0-0) H 09/23/17 10:57 Fluid Neutrophils 4.0 % (0-0) H 09/23/17 10:57 Fluid Lymphocytes 93.0 % (0-0) H 09/23/17 10:57 Fld Monocyte/Macrophag 3 % (0-0) H 09/23/17 10:57 Fluid Diff Path Review 09/23/17 10:57 Fluid Comment 09/23/17 10:57 Pleural Total Protein 4.0 g/dL 09/22/17 10:57 Pleural LDH 566 U/L 09/22/17 10:57 Pleural Glucose 114 mg/dL 09/22/17 10:57 Pleural Fluid CEA 810.0 ng/mL (<10.0) H 09/22/17 10:57 - Hospital Course Hospital Course: CC: generalized weakness, sob, weight loss HPI: Patient is a 57 year old male with a past medical history of hypothyroidism , who presents to the ED with generalized weakness, shortness of breath, right upper extremity pain/numbness, and weight loss. Patient's , Rea, is at bedside contributing to the history. Patient reports having generalized weakness and right upper extremity pain/numbness for approximately 2 months. Patient saw an orthopedist who took an xray which did not show any acute issues. Patient states the orthopedist wanted the patient to get an MRI, but the patient did not get one yet. Patient and reports the patient has lost about 20lbs in a month and a half, and has had decreased appetite, "seeing food makes me nauseas". The patient states he has been feeling increasingly short of breath for the last week, which prompted him to come into the ED. The patient states the shortness of breath increased with exertion and occasionally with laying flat. Patient only uses one pillow. Patient currently denies having chest pain, abdominal pain, nausea, fevers, leg pain/swelling and headaches. PMD: Dr. Jaramillo PMHx: Hypothyroidism SurgHx: colonscopy (11/30; resected polyps; as per and patient- colonscopy was normal) FamHx: Father- prostate cancer, HTN; Mother- HTN, DM Allergies: NKDA Medications: Levothyroxine 25mcg PO daily Hospital Course: Patient was admitted on 09/20/17 for pleural effusion and a lung mass. In the ED, labs and imaging were ordered. Chest xray showed a large right pleural effusion. Chest CT showed severe right pleural effusion with associated ateletasis/lung collapse; evidence of underlying large heterogenous mass involving medial right lung field and mediastinum ([id number]); significant mediastinal shift to the left; mild pericardial effusion; multiple lytic foci in vertebral bodies concerning for metastatic disease. Right upper extremity doppler showed no DVTs. Patient's home medication, Synthroid, was continued and TSH/Free T4 were ordered and within normal range. Dr. Sultana, oncology, was consulted for the lung mass. Dr. Caicedo, pulmonology, was consulted for the pleural effusion and lung mass. IR was consulted for pleural effusion and thoracentesis. Thoracentesis was performed and fluid analysis was done. Three liters were removed during procedure. Thoracic surgery was also consulted , however, no surgical intervention was advised at the time. Cervical CT, Thoracic CT, Abdomen/Pelvis CT and Brain MRI were ordered to evaluate for metastasis. High suspicious for metastasis in the spine and pelvis was noted, but no metastasis in the brain. Patient underwent bronchoscopy with biopsy on with Dr. Caicedo, which showed mass completing obstructing bronchus intermedius. 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 Patient was seen by PT/OT during hospital course. Patient was seen and examined at bedside today in no acute distress. Patient reports his breathing has improved and has no other complaints. Patient is stable for discharge to TCU. Patient must follow up with Dr. Sultana as outpatient to schedule chemotherapy port placement and further treatment. This is a brief summary of the hospital course. Please see EMR for more details. Discharge Exam - Head Exam Head Exam: ATRAUMATIC, NORMOCEPHALIC - Eye Exam Eye Exam: EOMI, Normal appearance - ENT Exam ENT Exam: Mucous Membranes Moist - Respiratory Exam Respiratory Exam: Decreased Breath Sounds (R>L; no breath sounds on R.). absent : Clear to PA & Lateral, Rales, Rhonchi, Wheezes, Respiratory Distress - Cardiovascular Exam Cardiovascular Exam: REGULAR RHYTHM, +S1, +S2 - GI/Abdominal Exam GI & Abdominal Exam: Normal Bowel Sounds, Soft. absent: Distended, Firm, Tenderness - Extremities Exam Extremities exam: normal inspection, pedal pulses present - Neurological Exam Neurological exam: Alert, Oriented x3 - Psychiatric Exam Psychiatric exam: Normal Affect, Normal Mood - Skin Skin Exam: Dry, Intact, Normal Color, Warm Discharge Plan - Follow Up Plan Condition: FAIR Disposition: REHAB FACILITY/REHAB UNIT Instructions: Heart Healthy Diet (DC), Pleural Effusion (DC), Flexible Bronchoscopy (DC), Weakness (GEN) Additional Instructions: Patient is stable for discharge to TCU in [place]. Patient should continue all medications. Patient must follow up with oncologist, Dr. Sultana, within 1 week for outpatient care and placement of port. Patient should follow up with volumetric weigher, Dr. Caicedo, within 1 week of discharge. Patient should follow up with their PMD, Dr. Jaramillo, within 1 week of discharge. If symptoms reoccur or worsen, patient should return to the ED. Referrals: Thom Caicedo MD [Staff Provider] - <Nathan Khan - Last Filed: 09/28/17 08:11> Provider - Provider Date of Admission: 09/20/17 20:41 Attending physician: Nathan Khan, DO Hospital Course - Lab Results Lab Results: Micro Results 09/25/17 09:33 Bronchial Washings Bronchial Culture - Final No growth. 09/23/17 10:57 Body Fluid - Pleural Fluid Gram Stain - Final 09/23/17 10:57 Body Fluid - Pleural Fluid Body Fluid Culture - Preliminary No growth. 09/25/17 09:32 Bronchial Washings Fungal Culture - Preliminary Most Recent Lab Values WBC 11.9 K/uL (4.8-10.8) H 09/27/17 06:19 RBC 3.73 Mil/uL (4.40-5.90) L 09/27/17 06:19 Hgb 10.9 g/dL (12.0-18.0) L 09/27/17 06:19 Hct 32.4 % (35.0-51.0) L 09/27/17 06:19 MCV 86.9 fL (80.0-94.0) 09/27/17 06:19 MCH 29.2 pg (27.0-31.0) 09/27/17 06:19 MCHC 33.6 g/dL (33.0-37.0) 09/27/17 06:19 RDW 13.2 % (11.5-14.5) 09/27/17 06:19 Plt Count 614 K/uL (130-400) H 09/27/17 06:19 MPV 8.4 fL (7.2-11.7) 09/27/17 06:19 Neut % (Auto) 75.1 % (50.0-75.0) H 09/27/17 06:19 Lymph % (Auto) 13.0 % (20.0-40.0) L 09/27/17 06:19 [place] % (Auto) 9.7 % (0.0-10.0) 09/27/17 06:19 Eos % (Auto) 1.3 % (0.0-4.0) 09/27/17 06:19 Baso % (Auto) 0.9 % (0.0-2.0) 09/27/17 06:19 Neut # 9.0 K/uL (1.8-7.0) H 09/27/17 06:19 Lymph # 1.6 K/uL (1.0-4.3) 09/27/17 06:19 [place] # 1.2 K/uL (0.0-0.8) H 09/27/17 06:19 Eos # 0.2 K/uL (0.0-0.7) 09/27/17 06:19 Baso # 0.1 K/uL (0.0-0.2) 09/27/17 06:19 PT 13.3 SECONDS (9.7-12.2) H 09/25/17 06:48 INR 1.2 09/25/17 06:48 APTT 33 SECONDS (21-34) 09/25/17 06:48 Sodium 132 mmol/L (132-148) 09/27/17 06:19 Potassium 4.2 mmol/L (3.6-5.2) 09/27/17 06:19 Chloride 96 mmol/L (98-107) L 09/27/17 06:19 Carbon Dioxide 31 mmol/L (22-30) H 09/27/17 06:19 Anion Gap 10 (10-20) 09/27/17 06:19 BUN 12 mg/dL (9-20) 09/27/17 06:19 Creatinine 0.7 mg/dL (0.8-1.5) L 09/27/17 06:19 Est GFR ( Amer) > 60 09/27/17 06:19 Est GFR (Non-Af Amer) > 60 09/27/17 06:19 POC Glucose (mg/dL) 106 mg/dL (65-110) 09/20/17 18:18 Random Glucose 111 mg/dL (75-110) H 09/27/17 06:19 Calcium 8.1 mg/dl (8.6-10.4) L 09/27/17 06:19 Magnesium 1.9 mg/dL (1.6-2.3) 09/23/17 06:00 Total Bilirubin 0.6 mg/dL (0.2-1.3) 09/27/17 06:19 AST 37 U/L (17-59) 09/27/17 06:19 ALT 47 U/L (21-72) 09/27/17 06:19 Alkaline Phosphatase 180 U/L (38-126) H 09/27/17 06:19 Troponin I < 0.0120 ng/mL (0.00-0.120) 09/20/17 18:45 NT-Pro-B Natriuret Pep 79.9 pg/mL (0-900) 09/20/17 18:45 Total Protein 6.1 g/dL (6.3-8.3) L 09/27/17 06:19 Albumin 3.0 g/dL (3.5-5.0) L 09/27/17 06:19 Globulin 3.1 gm/dL (2.2-3.9) 09/27/17 06:19 Albumin/Globulin Ratio 0.9 (1.0-2.1) L 09/27/17 06:19 Free T4 1.49 ng/dL (0.78-2.19) 09/20/17 18:45 TSH 3rd Generation 2.09 mIU/L (0.46-4.68) 09/20/17 18:45 Urine Color Yellow (YELLOW) 09/20/17 19:41 Urine Clarity Clear (Clear) 09/20/17 19:41 Urine pH 6.0 (5.0-8.0) 09/20/17 19:41 Ur Specific [place] 1.015 (1.003-1.030) 09/20/17 19:41 Urine Protein Negative mg/dL (NEGATIVE) 09/20/17 19:41 Urine Glucose (UA) Normal mg/dL (Normal) 09/20/17 19:41 Urine Ketones Trace mg/dL (NEGATIVE) 09/20/17 19:41 Urine Blood Negative (NEGATIVE) 09/20/17 19:41 Urine Nitrate Negative (NEGATIVE) 09/20/17 19:41 Urine Bilirubin Negative (NEGATIVE) 09/20/17 19:41 Urine Urobilinogen Normal mg/dL (0.2-1.0) 09/20/17 19:41 Ur Leukocyte Esterase Neg Danny/uL (Negative) 09/20/17 19:41 Urine WBC (Auto) 2 /hpf (0-5) 09/20/17 19:41 Urine RBC (Auto) 3 /hpf (0-3) 09/20/17 19:41 Urine Bacteria Rare (<OCC) 09/20/17 19:41 Hyaline Casts 0-2 /lpf (0-2) 09/20/17 19:41 Fluid Source Pleural/thoracentesi 09/23/17 10:57 Fluid Appearance Cloudy (CLEAR) 09/23/17 10:57 Fluid WBC 480.0 /mm3 (0.0-300.0) H 09/23/17 10:57 Fluid RBC 9630.0 /mm3 (0.0-0.0) H 09/23/17 10:57 Fluid Tot Cell Count 100 (0-0) H 09/23/17 10:57 Fluid Neutrophils 4.0 % (0-0) H 09/23/17 10:57 Fluid Lymphocytes 93.0 % (0-0) H 09/23/17 10:57 Fld Monocyte/Macrophag 3 % (0-0) H 09/23/17 10:57 Fluid Diff Path Review 09/23/17 10:57 Fluid Comment 09/23/17 10:57 Pleural Total Protein 4.0 g/dL 09/22/17 10:57 Pleural LDH 566 U/L 09/22/17 10:57 Pleural Glucose 114 mg/dL 09/22/17 10:57 Pleural Fluid CEA 810.0 ng/mL (<10.0) H 09/22/17 10:57 Attending/Attestation - Attestation I have personally seen and examined this patient.: Yes I have fully participated in the care of the patient.: Yes I have reviewed all pertinent clinical information, including history, physical exam and plan: Yes Notes (Text): 09/28/17 08:11 Medical attending: Patient was seen and examined by me as well. Reviewed the above note by the medical doctor nuclear medicine and agree with the above. I also spoke with pulmonology as well as hematology oncology and the patient's primary medical doctor. The patient is being moved to [place] transitional care unit. He's been bedbound almost for an entire week now, and has not been ambulating as much as he has been. So we explained to him that he would benefit quite with some ongoing rehabilitation before going to home - nevertheless we emphasized to him the importance of follow-up particularly with hematology/ oncology and pulmonology. I explained this to the patient As mentioned above the patient has underwent a thoracentesis with 3 L removal, the initial cytology shows that there is some type of malignancy going on. The patient also then underwent a bronchoscopy and transbronchial biopsy. According to the bronchoscopy report there is a partial occlusion of the bronchus, and I had asked if there was any role that CT surgery should play at this time, and per my discussion there is no role for CT surgery at this time. At some point he may or may not need to have a Mediport place depending on what types of chemotherapy hematology oncology decides on. Thank you very much, Nathan Khan
[2017-09-27 16:26] VITALS: PULSE 114
== END 2017-09-27 18:40 | DRG 181 ==
LOC: C.ER 17:52 → C.3T 20:41 → C.6T 09-21 18:04
PROVIDERS: ADMIT Hospitalist; ATTEND Hospitalist
PROC: 0W993ZX Drainage of Right Pleural Cavity, Percutaneous Approach, Diagnostic (ICD-10-PCS; 2017-09-23)
PROC: 0BB38ZX Excision of Right Main Bronchus, Via Natural or Artificial Opening Endoscopic, Diagnostic (ICD-10-PCS; principal; 2017-09-25 07:45)
DX: C34.01 Malignant neoplasm of right main bronchus (principal); J91.0 Malignant pleural effusion; C79.51 Secondary malignant neoplasm of bone; J98.11 Atelectasis; E78.00 Pure hypercholesterolemia, unspecified; Z80.42 Family history of malignant neoplasm of prostate; R63.4 Abnormal weight loss; E03.9 Hypothyroidism, unspecified; D64.9 Anemia, unspecified

== ENCOUNTER 2017-10-08 11:52 | Emergency (ER) | payer BC ==
[2017-10-08 12:01] VITALS: BMI 18.3
[2017-10-08 12:02] VITALS: TEMP 98.5
[2017-10-08 12:35] VITALS: O2SAT 100
--- NOTE | 2017-10-08 13:38 | PCM.SURG1 ---
Surgeon's Initial Post Op Note - Surgeon's Notes Surgeon: Nela Ortiz MD Business And Financial Counsel: NONE Type of Anesthesia: Local Pre-Operative Diagnosis: Right pleural effusion Operative Findings: US showed loculated large right pleural effusion Post-Operative Diagnosis: Right pleural effusion Operation Performed: US guided right thoracentesis. Specimen/Specimens Removed: 1500 cc of slight serosanguinous fluid Estimated Blood Loss: EBL {In ML}: 0 Blood Products Given: N/A Drains Used: No Drains Post-Op Condition: Fair Date of Surgery/Procedure: 10/08/17 Time of Surgery/Procedure: 13:30
--- NOTE | 2017-10-08 13:42 | US ---
PROCEDURE: Date of procedure:shortness of breath, right pleural effusion Procedure: 1. Ultrasound-guided Right thoracentesis, CPT 12543 Medications: 6cc 1% Lidocaine HISTORY: Right pleural effusion, shortness of breath TECHNIQUE: Following informed consent ,the Patients' right chest was marked. Procedure time-out was called, and the patient was placed in the sitting position and limited ultrasound showed a loculated right effusion. The patient's right back was prepped and draped in the usual sterile fashion. After the skin was anesthetized with lidocaine, a drainage catheter was advanced under ultrasound guidance into the pleural space. Ultrasound-guided thoracentesis was performed. A total of 1500 cubic centimeters of slight serosanguinous fluid removed without complication. A Xeroform dressing was applied. IMPRESSION: Ultrasound guided Right thoracentesis. There were no immediate complications.
--- NOTE | 2017-10-08 13:49 | RAD ---
HISTORY: Status post right thoracentesis COMPARISON: 09/25/2017 FINDINGS: LUNGS: Minimal increased aeration in the right upper lobe -following right thoracentesis Clear left doug thorax PLEURA: Persistent large right pleural effusion with passive compressive atelectasis and/or underlying infiltrate inferred. Status post recent right thoracentesis. No pneumothorax appreciated CARDIOVASCULAR: Normal. OSSEOUS STRUCTURES: No significant abnormalities. VISUALIZED UPPER ABDOMEN: Normal. OTHER FINDINGS: None. IMPRESSION: Status post right thoracentesis with some improved aeration at the right lung apex. Considerable right residual pleural effusion and/or compressive atelectasis inferred. No pneumothorax appreciated
[2017-10-08 14:03] VITALS: BP 100/72; PULSE 108; RESP 18
--- NOTE | 2017-10-08 14:41 | C.PDOC ---
History Of Present Illness Pt was sent by his oncologist for Thoracentesis. Pt has lung CA. Time Seen by Provider: 10/08/17 12:39 Chief Complaint (Nursing): Shortness Of Breath History Per: Patient, Family Onset/Duration Of Symptoms: Days Current Symptoms Are (Timing): Worse Severity: Moderate Reports Recently: Treated By A Physician, Hospitalized Additional History Per: Prior Records Past Medical History Reviewed: Historical Data, Nursing Documentation, Vital Signs Vital Signs: Last Vital Signs Temp 98.5 F 10/08/17 12:02 Pulse 108 H 10/08/17 14:02 Resp 18 10/08/17 14:02 BP 100/72 10/08/17 14:02 Pulse Ox 100 10/08/17 14:40 - Medical History PMH: Hypercholesterolemia, Hypothyroidism, Malignancy (Lung. On home O2.) - [facility] Procedures DRAINAGE OF RIGHT PLEURAL CAVITY, PERC APPROACH, DIAGN (09/20/17) EXCISION OF RIGHT MAIN BRONCHUS, ENDO, DIAGN (09/20/17) EXERCISE TRMT MUSCULOSK UP BACK/UE W ASSIST EQUIP (09/27/17) GAIT TRAINING/AMBULAT TREATMENT USING ASSIST EQUIPMENT (09/27/17) HOME MANAGEMENT TREATMENT USING ASSIST EQUIPMENT (09/27/17) Family History: States: Unknown Family Hx - Social History Hx Tobacco Use: No Hx Alcohol Use: No Hx Substance Use: No - Immunization History Hx Tetanus Toxoid Vaccination: No Hx Influenza Vaccination: No Hx Pneumococcal Vaccination: No Review Of Systems Except As Marked, All Systems Reviewed And Found Negative. Constitutional: Negative for: Fever, Weakness Cardiovascular: Negative for: Chest Pain Respiratory: Positive for: Shortness of Breath. Negative for: Hemoptysis Gastrointestinal: Negative for: Vomiting, Abdominal Pain Musculoskeletal: Negative for: Neck Pain, Back Pain Skin: Negative for: Rash Neurological: Negative for: Weakness, Numbness Physical Exam - Physical Exam Appears: Chronically Ill Skin: Warm, Dry Head: Atraumatic, Normacephalic Eye(s): bilateral: PERRL, EOMI Neck: Normal ROM, Supple Respiratory: Decreased Breath Sounds (on right side) Gastrointestinal/Abdominal: Soft, No Tenderness Extremity: Normal ROM, No Pedal Edema, No Calf Tenderness Neurological/Psych: Oriented x3, Normal Motor, Normal Sensation ED Course And Treatment O2 Sat by Pulse Oximetry: 100 - Other Rad CXR after procedure X-Ray: Viewed By Me, Read By Radiologist Interpretation: IMPRESSION: Status post right thoracentesis with some improved aeration at the right lung apex. Considerable right residual pleural effusion and/or compressive atelectasis inferred. No pneumothorax appreciated Progress Note: Pt had Thoracentisis done by IR with some improvement in symptoms. Reassessment Condition: Improved Disposition Counseled Patient/Family Regarding: Diagnosis, Need For Followup - Disposition Disposition: HOME/ ROUTINE Disposition Time: 14:47 Condition: IMPROVED Additional Instructions: Follow up with your doctor for further evaluation and treatment. Return to the ER if you develop fever, pain, shortness of breath, worsening of symptoms or if you have any other concerns. Instructions: Pleural Effusion (ED), Lung Cancer (GEN) Forms: [facility] ([place]) - Clinical Impression Clinical Impression: Recurrent pleural effusion on right
== END 2017-10-08 15:23 | disposition home or self-care (01) ==
LOC: C.ER 11:52
DX: J90 Pleural effusion, not elsewhere classified (principal); E78.00 Pure hypercholesterolemia, unspecified; E03.9 Hypothyroidism, unspecified